=== PATIENT | male | born 1970 | race Caucasian/White ===

== ENCOUNTER 2020-01-23 17:36 | Inpatient (IN) | payer MEDICARE, MEDICAID ==
[~2020-01-23] VITALS: Ht 175.3 cm; Wt 222.3 kg
[2020-01-23 17:36] VITALS: BP 145/79
--- NOTE | 2020-01-23 17:36 | NUR ---
ED Nurse Note: Patient BARBIE RA #[id number] from [facility] d/t SOB x 45 min. Pt SPO2 83% on arrival. Pt placed on O2 8L by EMT. BS was 190mg/dL. Pt AO4 NAD. trach noted. dressed into gown; attached to monitor. breathing shallow; tachypneic.
--- NOTE | 2020-01-23 17:43 | Emergency Room Report ---
History of Present Illness General Chief Complaint: Dyspnea/Respdistress Source: Patient, EMS Present Illness HPI 49-year-old male history of chronic respiratory failure history of COPD presents with shortness of breath x1 day no known aggravating relieving factors severity is severe, constant patient was initially to be transported to [facility] however he was de-satting down to 80%, patient was brought in by EMS supplemental oxygen was provided with improvement in saturation patient presents for evaluation Allergies: Coded Allergies: FISH DERIVED (Verified Allergy, Unknown, 01/23/20) PENICILLINS (Verified Allergy, Unknown, 01/23/20) SULFAMETHOXAZOLE (Verified Allergy, Unknown, 01/23/20) TRIMETHOPRIM (Verified Allergy, Unknown, 01/23/20) Patient History Limited by: medical condition - Trach Past Medical History: see triage record Reviewed Nursing Documentation: PMH: Agreed; PSxH: Agreed Review of Systems All Other Systems: limited - Trach Physical Exam Vital Signs Date Time Temp Pulse Resp B/P (MAP) Pulse Ox O2 Delivery O2 Flow Rate FiO2 01/23/20 17:27 98.1 111 24 145/79 (101) 95 Room Air Sp02 EP Interpretation: reviewed, abnormal - Reduced O2 General Appearance: alert, mild distress Head: normocephalic, atraumatic Eyes: bilateral eye PERRL, bilateral eye EOMI ENT: uvula midline, moist mucus membranes Neck: supple, thyroid normal, supple/symm/no masses, tracheotomy Respiratory: decreased breath sounds, accessory muscle use Cardiovascular #1: normal peripheral pulses, no edema, no gallop, no murmur, tachycardia Gastrointestinal: non tender, soft, no guarding, no rebound Musculoskeletal: normal inspection Neurologic: alert, oriented x3 Psychiatric: anxious Skin: no rash, warm/dry Procedures Critical Care Time Critical Care Time Given the critical condition in which the patient arrived, the patient was immediately assessed by myself and the nurse, and cardiac monitoring initiated due to the potential for rapid decompensation of the patient's clinical condition. During the course of the patient's stay, I spent a considerable amount of time at the bedside performing serial re-evaluations of the patient's hemodynamic and clinical status because of the recognized potential threat to life or limb in this condition. I then had a chance to review not only all of the available current laboratory and radiographic studies obtained today, but I also reviewed old records available to me at the time. Additionally, any ancillary information available including pet stylist records were reviewed. Sequential vital signs were obtained. Critical Care time of 36 minutes was performed exclusive of billable procedures. Medical Decision Making Diagnostic Impression: Primary Impression: Respiratory distress Additional Impressions: Hypoxia Hypercapnic respiratory failure, chronic ER Course 49-year-old male presents with hypoxia, respiratory distress. Differential diagnosis includes pneumonia, hypercapnic respiratory failure, hypoxia, COPD exacerbation Steroids started We will start breathing treatments plan for admission to stepdown unit due to increasing oxygen requirements Reevaluation 7:58 PM patient improved with breathing treatments CO2 is improving We will admit patient to stepdown unit Dr. Herrera accepted patient Could not perform CTA due to lack of manpower patient is too heavy to transport to CT ABG improved with breathing treatments most likely an exacerbation of his COPD will cancel CTA PE most likely COPD exacerbation Laboratory Tests Test 01/23/20 17:30 01/23/20 17:38 01/23/20 19:07 White Blood Count 12.2 K/UL (4.8-10.8) H Red Blood Count 4.16 M/UL (4.70-6.10) L Hemoglobin 11.8 G/DL (14.2-18.0) L Hematocrit 38.3 % (42.0-52.0) L Mean Corpuscular Volume 92 FL (80-99) Mean Corpuscular Hemoglobin 28.3 PG (27.0-31.0) Mean Corpuscular Hemoglobin Concent 30.7 G/DL (32.0-36.0) L Red Cell Distribution Width 16.1 % (11.6-14.8) H Platelet Count 134 K/UL (150-450) L Mean Platelet Volume 9.2 FL (6.5-10.1) Neutrophils (%) (Auto) 72.1 % (45.0-75.0) Lymphocytes (%) (Auto) 20.1 % (20.0-45.0) Monocytes (%) (Auto) 6.5 % (1.0-10.0) Eosinophils (%) (Auto) 0.4 % (0.0-3.0) Basophils (%) (Auto) 0.9 % (0.0-2.0) Sodium Level 153 MMOL/L (136-145) H Potassium Level 3.5 MMOL/L (3.5-5.1) Chloride Level 109 MMOL/L (98-107) H Carbon Dioxide Level 38 MMOL/L (21-32) H Anion Gap 6 mmol/L (5-15) Blood Urea Nitrogen 23 mg/dL (7-18) H Creatinine 0.9 MG/DL (0.55-1.30) Estimate Glomerular Filtration Rate > 60 mL/min (>60) Glucose Level 94 MG/DL (74-106) Lactic Acid Level 0.60 mmol/L (0.4-2.0) Calcium Level 8.7 MG/DL (8.5-10.1) Total Bilirubin 0.4 MG/DL (0.2-1.0) Aspartate Amino Transferase (AST) 216 U/L (15-37) H Alanine Aminotransferase (ALT) 110 U/L (12-78) H Alkaline Phosphatase 57 U/L (46-116) Troponin I 0.119 ng/mL (0.000-0.056) Pro-B-Type Natriuretic Peptide 730 pg/mL (0-125) H Total Protein 7.8 G/DL (6.4-8.2) Albumin 3.5 G/DL (3.4-5.0) Globulin 4.3 g/dL Albumin/Globulin Ratio 0.8 (1.0-2.7) L Lipase 63 U/L (73-393) L Arterial Blood pH 7.279 (7.350-7.450) 7.272 (7.350-7.450) Arterial Blood Partial Pressure CO2 83.5 mmHg (35.0-45.0) *H 63.9 mmHg (35.0-45.0) *H Arterial Blood Partial Pressure O2 89.6 mmHg (75.0-100.0) 66.7 mmHg (75.0-100.0) L Arterial Blood HCO3 38.3 mmol/L (22.0-26.0) H 28.8 mmol/L (22.0-26.0) H Arterial Blood Oxygen Saturation 95.5 % (95-100) 90.9 % (95-100) L Arterial Blood Base Excess 8.6 (-2-2) H 0.8 (-2-2) Alex Test Positive Positive EKG Diagnostic Results EKG Time: 17:50 EP Interpretation: NSR, rate 98, QTc 482, no acute ST elevations, normal axis Rhythm Strip Diag. Results Rhythm Strip Time: 17:42 EP Interpretation: yes Rate: 109 Rhythm: other - Sinus tachycardia Chest X-Ray Diagnostic Results Chest X-Ray Diagnostic Results : Chest X-Ray Ordered: Yes # of Views/Limited/Complete: 1 View Indication: Shortness of Breath EP Interpretation: Yes Interpretation: no consolidation, no effusion, no pneumothorax, no acute cardiopulmonary disease Impression: No acute disease Electronically Signed by: Ebenezer Baocn MD Last Vital Signs Date Time Temp Pulse Resp B/P (MAP) Pulse Ox O2 Delivery O2 Flow Rate FiO2 01/23/20 17:27 98.1 111 24 145/79 (101) 95 Room Air Disposition: ADMITTED INPATIENT Condition: Serious Ebenezer Bacon MD Jan 23, 2020 17:43
[2020-01-23] MEDS ORDERED: Ipratropium 0.02% Inh Soln 2.5ml UD HHN ONE (17:45)
[2020-01-23] MEDS ORDERED: Solu-MEDROL 125mg Inj IVP ONE (17:45)
[2020-01-23] MEDS ORDERED: Albuterol ud Inhalation HHN ONE (17:45)
[2020-01-23] MEDS ORDERED: Omnipaque 350 100ml vial INJ PRN (17:45)
--- NOTE | 2020-01-23 17:45 | NUR ---
ED Nurse Note: iv access established. blood, initial lactic, blood culture collected; sent down to lab.
[2020-01-23 18:26] LABS: BASOPHILS % (AUTO) 0.9 % (0.0-2.0); EOSINOPHILS % (AUTO) 0.4 % (0.0-3.0); HEMATOCRIT 38.3 % (42.0-52.0); HEMOGLOBIN 11.8 G/DL (14.2-18.0); LYMPHOCYTES % (AUTO) 20.1 % (20.0-45.0); MEAN CORPUSCULAR VOLUME 92 FL (80-99); MONOCYTES % (AUTO) 6.5 % (1.0-10.0); NEUTROPHILS % (AUTO) 72.1 % (45.0-75.0); PLATELET COUNT 134 K/UL (150-450); RED BLOOD COUNT 4.16 M/UL (4.70-6.10); RED CELL DISTRIBUTION WIDTH 16.1 % (11.6-14.8); WHITE BLOOD COUNT 12.2 K/UL (4.8-10.8)
--- NOTE | 2020-01-23 18:28 | Diagnostic Imaging Report ---
Exam: Chest 1 view History: Shortness of breath Comparison: None Findings: Tracheostomy tube is in mid trachea in satisfactory position. Cardiomegaly and vascular congestion or seen. Costophrenic angles are clear. Bones are intact. Impression: 1. Cardiomegaly and vascular congestion without overt pulmonary edema
[2020-01-23 18:30] LABS: ANION GAP 6 mmol/L (5-15); BLOOD UREA NITROGEN 23 mg/dL (7-18); CALCIUM 8.7 MG/DL (8.5-10.1); CARBON DIOXIDE 38 MMOL/L (21-32); CHLORIDE 109 MMOL/L (98-107); CREATININE 0.9 MG/DL (0.55-1.30); POTASSIUM 3.5 MMOL/L (3.5-5.1); SODIUM 153 MMOL/L (136-145)
[2020-01-23 18:43] LABS: ALANINE AMINOTRANSFERASE 110 U/L (12-78); ALBUMIN 3.5 G/DL (3.4-5.0); ALBUMIN/GLOBULIN RATIO 0.8 (1.0-2.7); ALKALINE PHOSPHATASE 57 U/L (46-116); ASPARTATE AMINO TRANSFERASE 216 U/L (15-37); BILIRUBIN,TOTAL 0.4 MG/DL (0.2-1.0)
--- NOTE | 2020-01-23 19:00 | NUR ---
HAND-OFF: Report given to valery shell. patient in stable condition. endorsed pending admission and integumentary assessment.
--- NOTE | 2020-01-23 19:10 | NUR ---
ED Nurse Note: Reassessed patient, patient in stable condition resting in bed. Addendum: 01/23/20 at 2013 by HERNÁN ED Nurse Note: Reassessed patient, patient in stable condition resting in bed. RT at bedside.
[2020-01-23] MEDS ORDERED: Enoxaparin 100mg Inj SUBQ ONE (19:15)
--- NOTE | 2020-01-23 19:40 | NUR ---
ED Nurse Note: Informed ERMD of 134 platelet count. Per ERMD, Patient ok to give Lovenox. Per ERMD, ok to not administer aspirin, medication returned to pyxis.
--- NOTE | 2020-01-23 19:49 | NUR ---
ED Nurse Note: RT contacted for suction.
--- NOTE | 2020-01-23 19:54 | NUR ---
ED Nurse Note: RT at bedside.
[2020-01-23 19:57] VITALS: BP 138/55
--- NOTE | 2020-01-23 20:31 | NUR ---
ED Nurse Note: Per ERMD, cancel CT. Unable to turn patient in ER andresrarturo d/t weight.
--- NOTE | 2020-01-23 20:32 | NUR ---
ED Nurse Note: MRSA and VRE swabs sent to lab.
[2020-01-23] MEDS ORDERED: LITHIUM CARBON300 MG ORAL (20:53)
[2020-01-23] MEDS ORDERED: ALBUTEROL2.5 MG/3 M INH (20:53)
[2020-01-23] MEDS ORDERED: KLONOPIN1 MG ORAL (20:53)
[2020-01-23] MEDS ORDERED: GABAPENTIN300 MG ORAL (20:53)
[2020-01-23] MEDS ORDERED: ATORVASTATIN CA20 MG ORAL (20:53)
[2020-01-23] MEDS ORDERED: ADDERAL20 MG ORAL (20:53)
[2020-01-23] MEDS ORDERED: COLACE100 MG ORAL (20:53)
[2020-01-23] MEDS ORDERED: LEVETIRACETAM500 MG ORAL (20:53)
[2020-01-23] MEDS ORDERED: TRAZODONE HCL50 MG ORAL (20:53)
--- NOTE | 2020-01-23 21:10 | NUR ---
ED Nurse Note: Report given to EMETERIO Shields in SDU.
--- NOTE | 2020-01-23 21:37 | NUR ---
TRANSFER TO FLOOR: Patient transferred to SDU as ordered, per ERMD. Report given to EMETERIO Shields. Patient transported via gurney on ACLS protocol and cardiac care unit nurse accompanied by 1 RN, technical support manager, and RT in stable condition.
[2020-01-23 21:45] VITALS: BP 123/70
--- NOTE | 2020-01-23 21:45 | NUR ---
NURSE NOTES: Received patient from EMETERIO Stone. Patient is aaox3, vss, with no acute distress. Patient tries to speak, but unable with trach. Patient was admitted from ED c/o sob for unspecified days. Patient is uncooperative and agitated. Patient refuses to reposition or roll to one side to properly assess skin. Patient is on monitor and storage bin tender and 15L humidified. IV site is on his right AC 18g. Bed at its lowest position, call light in reach and x3 bed rails are up. Will continue to monitor.
--- NOTE | 2020-01-23 21:50 | NUR ---
NURSE NOTES: Late entry Patient had rashes in his skin folds and is diaphoretic. MD at bedside.
[2020-01-23] MEDS ORDERED: Ipratropium 0.02% Inh Soln 2.5ml UD HHN PRN (22:45)
[2020-01-23] MEDS ORDERED: Albuterol ud Inhalation HHN PRN (22:45)
[2020-01-23] MEDS ORDERED: HYDROcodone/Acetamin 10/325 tab ORAL PRN (23:00)
[2020-01-24] VITALS (11 sets, daily range): BP systolic 96–136; BP diastolic 57–82
--- NOTE | 2020-01-24 06:23 | NUR ---
NURSE NOTES: Dr Herrera contacted Dr Lombardo and stated not to call him.
--- NOTE | 2020-01-24 07:10 | NUR ---
NURSE NOTES: Received report from EMETERIO Shields. The patient is resting on the bed without acute distress or shortness of breath. The patient's bed in the lowest position, call light in reach, and fall, aspiration, and seizure precaution reinforced. IV site intact and patent. The patient has trach collar and 12L oxygen therapy per order. MICHELLE Gr at the bedside assessed the patient. MICHELLE Gr ordered ST eval for PMV and ABG. Will continue plan of care.
--- NOTE | 2020-01-24 07:20 | NUR ---
HAND-OFF: Report given to EMETERIO Reyes.
--- NOTE | 2020-01-24 08:30 | NUR ---
NURSE NOTES: Notified Dr. Lombardo and MICHELLE Gr for critical ABG. MICHELLE Gr and Dr. Lombardo ordered the patient to be on ventilator AC 16, TV 600mL, and FiO2 30%. Informed RT for new order. The patient is stable without acute distress or shortness of breath. Will continue plan of care.
--- NOTE | 2020-01-24 08:30 | NUR ---
RESPIRATORY NOTE: ABG drawn. Results posted. EMETERIO callahan.
[2020-01-24] MEDS ORDERED: Aspirin Baby 81mg ORAL SCH (09:00)
[2020-01-24] MEDS ORDERED: Enalapril 5mg tab ORAL SCH (09:00)
[2020-01-24] MEDS ORDERED: Tubing IV Secondary IV ONE (09:19)
--- NOTE | 2020-01-24 11:00 | NUR ---
NURSE NOTES: Dr. Herrera ordered Keppra 750mg IVPB Q12hr for seizure as the patient has been on medication at [facility]. Will carry out the order as soon as possible. The patient is on ventilator for breathing support. The patient is stable without acute distress or shortness of breath. Will continue plan of care.
[2020-01-24] MEDS ORDERED: levETIRAcetam 750 MG in D5W 95 ML IV SCH (12:00)
[2020-01-24] MEDS ORDERED: Solu-MEDROL 125mg Inj IVP SCH (12:00)
--- NOTE | 2020-01-24 13:20 | NUR ---
NURSE NOTES: The patient had episode of multiple times of vomiting while the patient is on ventilator. Notified Dr. Herrera immediately. Administered Zofran as ordered as PRN. Awaiting for CXR result to come out for possible aspiration. RT at the bedside adjusted trach. The patient became calm without vomiting after administration of medication. Will continue plan of care.
--- NOTE | 2020-01-24 15:46 | Diagnostic Imaging Report ---
Indication: Dyspnea Comparison: 01/23/2020 A single view chest radiograph was obtained. Findings: Pulmonary vascular congestion is again demonstrated. Tracheostomy noted. Heart is enlarged but stable. IMPRESSION: No significant change from the prior examination. Pulmonary edema suspected
[2020-01-24] MEDS ORDERED: Pantoprazole Inj IVP SCH (16:00)
--- NOTE | 2020-01-24 16:00 | NUR ---
NURSE NOTES: Notified Dr. Herrera regarding multiple episodes of coffee ground emesis. Dr. Herrera ordered Protonix, NPO, and hold anticoagulant. The patient will be closely monitored.
--- NOTE | 2020-01-24 16:20 | NUR ---
NURSE NOTES: Dr. Herrera also ordered NS 100mL/hr, stat CBC, Ativan, GI consult with Dr. Singleton. Paged Dr. Singleton regarding the patient's condition but no new order yet. Will closely monitor the patient.
[2020-01-24] MEDS ORDERED: LORazepam Inj 2mg/ml 1ml IV PRN ×2 (16:30→17:30)
--- NOTE | 2020-01-24 16:30 | NUR ---
NURSE NOTES: Per MICHELLE Tee for Dr. Singleton, Dr. Carballo is covering the patient. Notified Dr. Carballo regarding the patient's sudden change of condition. No response yet. Will continue plan of care.
--- NOTE | 2020-01-24 16:45 | NUR ---
NURSE NOTES: Dr. Herrera ordered the patient to be transferred to ICU due to continuous coffee ground emesis. Notified the charge nurse and supervisor dairy sanitation. The patient will go to [facility] with two RNs and RTs. Will endorse plan of care.
--- NOTE | 2020-01-24 17:00 | NUR ---
NURSE NOTES: The patient had episode of vomiting water @1100 when ROUTE INSPECTOR and the primary nurse tried to change the ander after having bowel movement. Then,the patient got stablized. The patient had another emesis @ 1320 and color of emesis changed into coffee ground. Notified to Dr. Herrera immediately and adminstered Zofran as ordered. The charge nurse was notified and assisted the primary nurse. Called RT to adjust the setting and stat CXR done for risk of aspiration per order. The patient got stablized after administration of Zofran. At 1600, the patient has large amount of coffee ground emesis x3 and notified Dr. Herrera immediatly. Dr. Herrera ordered hold anticoagulant, Protonix, GI consult with Dr. Singleton, strict NPO, stat CBC, and NS 100mL/hr per NPO status. Paged MICHELLE Tee, Dr. Singleton, and Dr. Carballo for further order but no response back. At 1640, the patient had another episodes of coffee ground emesis and notified to immediately. Dr. Herrera ordered the patient to be transferred to ICU for further care. The patient got safely transferred to [facility] with two RNs and RTs and hand-off report given to EMETERIO Jones and EmilyRN for further care.
[2020-01-24 17:13] LABS: BASOPHILS % (AUTO) 0.3 % (0.0-2.0); HEMOGLOBIN 11.9 G/DL (14.2-18.0); LYMPHOCYTES % (AUTO) 6.6 % (20.0-45.0); MEAN CORPUSCULAR VOLUME 91 FL (80-99); MONOCYTES % (AUTO) 2.2 % (1.0-10.0); NEUTROPHILS % (AUTO) 90.6 % (45.0-75.0); PLATELET COUNT 162 K/UL (150-450); RED BLOOD COUNT 4.18 M/UL (4.70-6.10); RED CELL DISTRIBUTION WIDTH 16.3 % (11.6-14.8)
--- NOTE | 2020-01-24 17:15 | NUR ---
NURSE NOTES: The patient got safely transferred to [facility] with two RNs and two RTs. Comprehensive repot given to Karen RN and Emily RN @ ICU. The patient is on ventilator for breathing support and will kept as NPO as Dr. Herrera ordered until clarification made with Dr. Carballo. The patient's belongings checked with the patient and two nurses and signed by two nurses. Endorsed plan of care.
[2020-01-24] MEDS ORDERED: HYDROcodone/Acetamin 10/325 tab ORAL PRN (17:30)
[2020-01-24] MEDS ORDERED: Albuterol ud Inhalation HHN PRN (17:30)
--- NOTE | 2020-01-24 17:30 | NUR ---
NURSE NOTES: Received report from EMETERIO Reyes. Patient blood pressure 108/52, HR 79 in normal sinus rhythm, SpO2 96%, and RR 25. Patient transferred due to 10 times coffee ground emesis. Received report that patient vomited once this morning and then 8-9 more times when he was turned to be cleaned up in the afternoon. Dr Herrera ordered for the patient to be transferred to ICU and made strict NPO. Patient vomited once again when transferred to ICU. Emesis brown, thin with some brown clots noted. Patient reports abdominal pain and nausea at this time. Will follow up with pain medication as ordered. Patient on trach to ventilator with setting of AC 16, TV 600, FiO2 45%, and PEEP 0. Patient reported to be incontinent of urine and stool. Patient soiled at this time. Patient has right wrist 20 gauge peripheral IV that is patent, asymptomatic, and saline locked at this time. Patient has new order for 0.9% normal saline at 100mL/hr. Will follow up and start medication administration. Patient has dry, flacking, calloused feet with no evidence of DTI at this time. Patient has bilateral elbow open wound that patient reports are abscesses. Patient also has left upper arm open wound that patient reports is an abscess. Moisture barrier cream and optifoam applied. Patient has sacral dark red/maroon wound with small satellite spots around the middle red area. Moisture barrier cream and optifoam applied. Patient needs a larger bed. Attempted to order from central supply but they are closed at this time. Will endorse to next shift to order when cetral supply arrives in the morning. Patient cleaned, repositioned, and oral care performed. All linens changed. Patient bed in low position with bed alarm on and call light in reach at this time. Will continue to monitor. Addendum: 01/24/20 at 1943 by Karen Doss RN Bright red, raw, irritated skin noted under trach. NO open wound noted.
[2020-01-24] MEDS ORDERED: Albuterol/Ipratropium 3ml neb HHN PRN ×2 (17:45)
[2020-01-24] MEDS ORDERED: Omnipaque 350 100ml vial INJ PRN (17:45)
[2020-01-24] MEDS ORDERED: Guaifenesin/DM 10ml syrup ORAL PRN (17:45)
--- NOTE | 2020-01-24 17:57 | Consultation ---
History of Present Illness General Date patient seen: Jan 24, 2020 Time patient seen: 15:00 Chief Complaint: Dyspnea/Respdistress Referring physician: Dr Herrera Reason for Consultation: resp failure Present Illness HPI 49 years old male with past medical history of chronic respiratory failure, COPD , tracheostomy status, presented with shortness of breath. Upon evaluation patient was tachycardic and tachypneic. Laboratory work-up revealed leukocytosis with WBC 12.2 and anemia with, hemoglobin 11.8 hematocrit 28.3. Platelet count 134. Sodium 153, potassium 3.5. Chloride 109. BUN 23, creatinine 0.9. Lactic acid 0.6. Glucose 94. AST 216 ALT 110. Troponin 0.119 Troponin elevated 0.119 , pro vBNP 730, EKG revealed sinus tachycardia, no acute ischemic changes. Albumin 3.5. Chest x-ray demonstrated cardiomegaly and vascular congestion without overt pulmonary edema. ABG showed evidence of acute respiratory acidosis with pH 7.27, PCO2 83, PO2 89 and O2 sat 95% on 45% FiO2. In emergency department patient was connected to ventilator , started on steroids and nebulizing treatment with bronchodilator. ABG after bronchodilator treatment showed improvement with PCO2 down to 64. In ED received ASA and Lovenox x 1. Patient also received 1 L of fluid in emergency department. Tachycardia resolved Patient subsequently admitted to stepdown unit for further management. Pulmonology consult was requested to assist in respiratory care and ventilator management. Allergies: Coded Allergies: FISH DERIVED (Verified Allergy, Unknown, 01/23/20) PENICILLINS (Verified Allergy, Unknown, 01/23/20) SULFAMETHOXAZOLE (Verified Allergy, Unknown, 01/23/20) TRIMETHOPRIM (Verified Allergy, Unknown, 01/23/20) Medication History Scheduled Atorvastatin Calcium* (Atorvastatin Calcium*), 10 MG ORAL BEDTIME, (Reported) Clonazepam* (Klonopin*), 1 MG ORAL DAILY, (Reported) Dextroamphetamine/Amphetamine (Adderall 20 mg Tablet), 20 MG ORAL TWICE A DAY, ( Reported) Docusate Sodium* (Colace*), 100 MG ORAL DAILY, (Reported) Gabapentin* (Gabapentin*), 300 MG ORAL BID, (Reported) Levetiracetam* (Levetiracetam*), 750 MG ORAL TWICE A DAY, (Reported) [place] Carbonate* ([place]*), 600 MG ORAL BID, (Reported) Trazodone Hcl* (Desyrel*), 50 MG ORAL BEDTIME, (Reported) Scheduled PRN Albuterol Sulfate* (Albuterol Sulfate Hhn*), 3 ML INH Q3HR PRN for Shortness of Breath, (Reported) Patient History Limited by: medical condition History Provided By: Medical Record Healthcare decision maker Resuscitation status Full Code Advanced Directive on File Review of Systems ROS Narrative Unable to obtain due to patient's medical condition Physical Exam General Appearance: other - morbidly obese male on Vent AC 600-16-30% Lines, tubes and drains: peripheral HEENT: normocephalic, atraumatic, anicteric, status post trach Respiratory/Chest: chest wall non-tender, expiratory wheezing - few exp wheezes and overall decreased BS Cardiovascular/Chest: normal rate Abdomen: normal bowel sounds, soft - obese Skin Exam: warm/dry Neurologic: abnormal gait, responsive Musculoskeletal: normal muscle bulk Last 24 Hour Vital Signs Date Time Temp Pulse Resp B/P (MAP) Pulse Ox O2 Delivery O2 Flow Rate FiO2 01/24/20 14:41 86 21 30 01/24/20 13:16 100 26 30 01/24/20 12:00 105 01/24/20 12:00 98.8 82 20 124/78 (93) 99 01/24/20 12:00 Mechanical Ventilator 01/24/20 10:35 90 18 30 01/24/20 10:28 70 01/24/20 08:56 121/64 01/24/20 08:00 Trach Collar 12.0 01/24/20 08:00 12.0 01/24/20 08:00 98.8 102 20 121/64 (83) 98 01/24/20 08:00 82 01/24/20 07:30 98 T-Piece 12.0 45 01/24/20 07:30 90 27 98 T-Piece 12.0 45 01/24/20 04:00 Trach Collar 12.0 01/24/20 04:00 97.6 100 27 96/57 (70) 92 01/24/20 04:00 82 01/24/20 04:00 12.0 01/24/20 01:00 96 T-Piece 12.0 45 01/24/20 00:00 98.6 110 25 119/73 (88) 92 01/24/20 00:00 111 01/24/20 00:00 12.0 01/24/20 00:00 Trach Collar 12.0 01/23/20 21:45 98.1 96 24 123/70 (87) 92 01/23/20 21:45 Trach Collar 12.0 01/23/20 21:30 98.3 78 24 145/95 89 Trach Collar 12.0 01/23/20 19:57 99 28 138/55 91 Trach Collar 5.0 40 01/23/20 19:00 89 24 92 T-Piece 12.0 45 01/23/20 19:00 92 T-Piece 12.0 45 01/23/20 18:21 110 21 Trach Collar 5.0 40 01/23/20 18:18 108 19 95 Trach Collar 5.0 40 110 21 90 Intake and Output 01/23/20 01/24/20 19:00 07:00 Intake Total 3400 ml Balance 3400 ml Intake Oral 1400 ml IV Total 2000 ml # Voids 1 # Bowel Movements 4 Laboratory Tests Test 01/23/20 19:07 01/24/20 03:16 01/24/20 08:30 01/24/20 16:52 Arterial Blood pH 7.272 (7.350-7.450) 7.299 (7.350-7.450) Arterial Blood Partial Pressure CO2 63.9 mmHg (35.0-45.0) *H 73.7 mmHg (35.0-45.0) *H Arterial Blood Partial Pressure O2 66.7 mmHg (75.0-100.0) L 120.9 mmHg (75.0-100.0) H Arterial Blood HCO3 28.8 mmol/L (22.0-26.0) H 35.4 mmol/L (22.0-26.0) H Arterial Blood Oxygen Saturation 90.9 % (95-100) L 98.0 % (95-100) Arterial Blood Base Excess 0.8 (-2-2) 6.7 (-2-2) H Alex Test Positive Positive Hemoglobin A1c 5.5 % (4.3-6.0) Pro-B-Type Natriuretic Peptide 449 pg/mL (0-125) H White Blood Count 12.0 K/UL (4.8-10.8) H Red Blood Count 4.18 M/UL (4.70-6.10) L Hemoglobin 11.9 G/DL (14.2-18.0) L Hematocrit 38.0 % (42.0-52.0) L Mean Corpuscular Volume 91 FL (80-99) Mean Corpuscular Hemoglobin 28.5 PG (27.0-31.0) Mean Corpuscular Hemoglobin Concent 31.3 G/DL (32.0-36.0) L Red Cell Distribution Width 16.3 % (11.6-14.8) H Platelet Count 162 K/UL (150-450) Mean Platelet Volume 9.9 FL (6.5-10.1) Neutrophils (%) (Auto) 90.6 % (45.0-75.0) H Lymphocytes (%) (Auto) 6.6 % (20.0-45.0) L Monocytes (%) (Auto) 2.2 % (1.0-10.0) Eosinophils (%) (Auto) 0.0 % (0.0-3.0) Basophils (%) (Auto) 0.3 % (0.0-2.0) Microbiology Date/Time Source Procedure Growth Status 01/23/20 18:00 Rectum Received Height (Feet): 5 Height (Inches): 9.00 Weight (Pounds): 500 Medications Current Medications Medications (Trade) Dose Ordered Sig/Phuong Route PRN Reason Start Time Stop Time Status Last Admin Dose Admin Acetaminophen/ Hydrocodone Bitart ([place] 10/325) 1 tab Q8H PRN ORAL For Pain 01/24/20 17:30 01/31/20 17:29 Albuterol/ Ipratropium (Albuterol/ Ipratropium) 3 ml Q4H PRN HHN Shortness of Breath 01/24/20 17:45 01/29/20 17:29 Aspirin (ASA) 81 mg DAILY ORAL 01/25/20 09:00 02/23/20 08:59 Atorvastatin Calcium (Lipitor) 10 mg BEDTIME ORAL 01/24/20 21:00 02/23/20 20:59 Enalapril Maleate (Vasotec) 5 mg EVERY 12 HOURS ORAL 01/24/20 21:00 02/23/20 08:59 Iohexol (Omnipaque 350 100ml) 100 ml NOW PRN INJ Radiology Procedure 01/24/20 17:45 01/25/20 17:38 Levetiracetam 750 mg/Dextrose 102.5 ml @ 440 mls/hr Q12H IV 01/25/20 00:00 02/23/20 11:59 Levofloxacin 150 ml @ 100 mls/hr QHS IVPB 01/24/20 21:00 01/30/20 22:59 Lorazepam (Ativan 2mg/ml 1ml) 1 mg Q4H PRN IV For Anxiety 01/24/20 17:30 01/31/20 17:29 Methylprednisolone Sodium Succinate (Solu-MEDROL) 60 mg EVERY 6 HOURS IVP 01/24/20 18:00 02/23/20 11:59 Ondansetron HCl (Zofran) 4 mg Q6H PRN IVP Nausea & Vomiting 01/24/20 17:30 02/23/20 17:29 Pantoprazole (Protonix) 40 mg DAILY IVP 01/25/20 09:00 02/23/20 15:59 Sodium Chloride 1,000 ml @ 100 mls/hr Q10H IV 01/24/20 17:30 02/23/20 16:29 Trazodone HCl (Desyrel) 50 mg BEDTIME ORAL 01/24/20 21:00 02/23/20 20:59 Assessment/Plan Assessment/Plan: ASSESSMENT Acute hypercapnic respiratory failure on chronic respiratory failure with tracheostomy status Acute COPD exacerbation Elevated troponin Hypernatremia likely due to dehydration Anemia Transaminitis Obesity Likely KENAN Hypertension Seizure disorder PLAN OF CARE ICU connected to vent, ABG in am titrate settings as needed pulmonary toilet with bronchodilator troponin in am ECHO continue ASA cardio eval- per primary IV steroids and taper soon empiric abx sputum cx if able trial of theophylline antitussive prn DVT prophylaxis Venous Duplex BLE ST eval for PMV trials swallow eval in am aspiration precautions BP management continue current meds GI prophylaxis bowel regimen seizure precautions, continue Keppra monitor renal paramerts, lytes, correct lytes as needed trend LFT 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
[2020-01-24] MEDS: Theophylline ER 100mg ORAL SCH (18:00)
[2020-01-24] MEDS: Solu-MEDROL 125mg Inj IVP SCH ×2 (18:18→23:48)
--- NOTE | 2020-01-24 18:35 | NUR ---
NURSE NOTES: Left telephone message for Dr Herrera requesting IV pain medication for patient. Patient has an order for PO pain medication and patient is currently NPO. Awaiting call back.
[2020-01-24] MEDS ORDERED: Ipratropium 0.02% Inh Soln 2.5ml UD HHN PRN (18:45)
--- NOTE | 2020-01-24 19:00 | NUR ---
RESPIRATORY NOTE: Pt vomited coffee ground emesis earlier. Pt refused to change dennis, gauze, and trach tie. Explained the importance of changing to a clean dennis, gauze, trach tie, still refused. Pt has bright redness skin under the trach. RN Karen aware. Will try to convince pt again later.
[2020-01-24] MEDS ORDERED: HYDROmorphone 1mg/ml Carpuject IVP PRN (19:15)
--- NOTE | 2020-01-24 19:28 | NUR ---
HAND-OFF: Report given to EMETERIO Marquez. Patient vital signs stable. Patient refused trach cleaning from RT. Endorsed to order larger bed tomorrow. Received call back from Dr Herrera. Received telephone order for Dilaudid 1mg IVP as needed for pain Q6Hr. Order read back, verified, and placed. Endorsed to administer as needed.
--- NOTE | 2020-01-24 19:30 | NUR ---
NURSE NOTES: Received report from EMETERIO Jones. Pt is resting on the bed and awake and disoriented, forgetful and non-compliance. On night monitor with SR. Trach to Vent dependent and setting with AC: 16, T: 600, P: 0, FiO2 45% and Evelyn 95% noted. Pt still refused clean on the trach area. Noted redness on under the neck area. Still noted vomiting with brownish color. Dressing is clean and dry on wound area. Iv site intact and no sign of infiltration noted. On running with N/S @ 100cc/hr. Denied pain at this time. On NPO. Placed fall and seizure precaution. Will continue to care plan.
--- NOTE | 2020-01-24 20:00 | NUR ---
NURSE NOTES: Pt is resting on the bed and no sign of acute distress noted. Tolerated well with current Vent setting. Will continue to care plan.
[2020-01-24] MEDS: Enalapril 5mg tab ORAL SCH (21:00)
[2020-01-24] MEDS: Heparin 5000 units/ml inj SUBQ SCH (21:00)
[2020-01-24] MEDS ORDERED: TraZODone 50mg tab ORAL SCH ×2 (21:00)
--- NOTE | 2020-01-24 22:00 | NUR ---
NURSE NOTES: Pt is sleeping on the bed and tolerated well with current Vent setting. No sign of n/v at this time. Repositioned. Will continue to monitor any change of condition.
[2020-01-24] MEDS: levETIRAcetam 750 MG in D5W 95 ML IV SCH (23:48)
[2020-01-25] VITALS (17 sets, daily range): BP systolic 110–166; BP diastolic 55–93
--- NOTE | 2020-01-25 | NUR ---
NURSE NOTES: Pt is resting on the bed and awake and forgetful. Pt want to drink water and ice chip but Dr. Herrera want to strict NPO. Explained Pt regarding strict NPO. Provided oral care but Pt refused. Dr. Herrera visited and assessed Pt. Repositioned. Pt still refused cleaning. Placed fall and seizure precaution. Inserted new IV on Lt. hand and noted good blood return. Will continue to monitor any change of condition.
--- NOTE | 2020-01-25 02:00 | NUR ---
NURSE NOTES: Given tracheal suction. Refused oral care at this time. on NPO. denied pain at this time. Changed position. No c/o nausea/ vomiting at this time. Will continue to monitor any change of condition.
--- NOTE | 2020-01-25 02:21 | NUR ---
NURSE NOTES: Noted coffee ground color emesis x1. Given Zofran 4mg IV as ordered. Keep NPO. Will continue to monitor any change of condition.
--- NOTE | 2020-01-25 03:45 | Progress Note ---
DATE: 01/24/2020 SUBJECTIVE: The patient developed acute respiratory failure, nausea and vomiting of coffee-ground material. These episodes repeated several times. The patient was transferred to the intensive care unit. In the intensive care unit, he is awake, alert, afebrile, and demanding. PHYSICAL EXAMINATION: VITAL SIGNS: Blood pressure 123/63, his pulse is 77, respirations are 18, temperature 98.8. HEENT: Eyes were normal. ENT, mucous membranes were moist and intact. NECK: Supple with no JVD without lymph nodes. Tracheostomy site is clean. LUNGS: Clear without rhonchi, rales, or wheezing. HEART: Normal sounds with irregular beats with APC and VPC . ABDOMEN: Soft, nontender with normal bowel sounds. Abdomen is massively obese. EXTREMITIES: Warm without cyanosis or clubbing. There is 2+ edema. LABORATORY AND DIAGNOSTIC DATA: His hemoglobin is 11.9, hematocrit 38.0 with MCV of 91, WBC of 12.0 and platelets is 162. His BUN and creatinine are 23 and 0.9 respectively. His sodium is 153, potassium is 3.5, chloride 109, CO2 is 38. His calcium is 8.7. His SGOT is 216. His SGPT is 110. His troponin is 0.11. His proBNP at 449. Chest x-ray shows cardiomegaly without pulmonary infiltrate. IMPRESSION: The patient has a new episode of nausea and vomiting, and vomiting is coffee-ground material. In addition, the patient has elevated troponin and elevated proBNP. The patient himself is noncompliant, refused treatment and refused care. PLAN: The patient now is NPO. Normal saline at 100 mL per hour is administered, Zofran 4 mg IV push q.4 h. p.r.n. for nausea and vomiting, Protonix 40 mg IV push q.24 hours. service delivery consultant and pulmonary net developer consultant are called to assist in the management of this case. Repeat laboratory tests will be done in the a.m. The patient will be placed on carvedilol 3.125 mg. He is currently on enalapril. His pain management now is done with Dilaudid 1 mg IV push q.4 hours. He is also on methylprednisolone sodium succinate 60 mg IV push q.6 h. Efren Herrera M.D. DR: VALENTE JOB#: [id number] CC:
--- NOTE | 2020-01-25 04:00 | NUR ---
NURSE NOTES: Morning care was done. Cleaned Pt and applied lotion and cream. Provided oral care. Repositioned. Trach to Vent dpendent setting with Ac: 16, T: 600, FiO2 60% P:0 SaO2 99% noted. On NPO. No sign of nausea and vomiting. Placed fall and seizure precaution. Will continue to monitor any change of condition.
[2020-01-25] MEDS: Solu-MEDROL 125mg Inj IVP SCH (05:30)
[2020-01-25 05:39] LABS: HEMATOCRIT 35.1 % (42.0-52.0); HEMOGLOBIN 11.1 G/DL (14.2-18.0); MEAN CORPUSCULAR VOLUME 91 FL (80-99); PLATELET COUNT 202 K/UL (150-450); RED BLOOD COUNT 3.86 M/UL (4.70-6.10); RED CELL DISTRIBUTION WIDTH 13.9 % (11.6-14.8); WHITE BLOOD COUNT 10.4 K/UL (4.8-10.8)
[2020-01-25 05:57] LABS: ALANINE AMINOTRANSFERASE 70 U/L (12-78); ALBUMIN 2.8 G/DL (3.4-5.0); ALBUMIN/GLOBULIN RATIO 0.6 (1.0-2.7); ALKALINE PHOSPHATASE 46 U/L (46-116); ANION GAP 4 mmol/L (5-15); ASPARTATE AMINO TRANSFERASE 74 U/L (15-37); BILIRUBIN,TOTAL 0.3 MG/DL (0.2-1.0); BLOOD UREA NITROGEN 29 mg/dL (7-18); CARBON DIOXIDE 39 MMOL/L (21-32); CHLORIDE 107 MMOL/L (98-107); CREATININE 0.8 MG/DL (0.55-1.30); POTASSIUM 3.7 MMOL/L (3.5-5.1); SODIUM 150 MMOL/L (136-145)
--- NOTE | 2020-01-25 06:00 | NUR ---
NURSE NOTES: Pt is sleeping on the bed and no sign of acute distress noted. No sign of nausea/ vomiting at this time. Denied pain . On NPO. Collected sputum culture. Repositioned. Will continue to monitor any change of condition.
--- NOTE | 2020-01-25 07:30 | History and Physical Report ---
DATE OF ADMISSION: 01/23/2020 NOTE: POOR AUDIO This is the first admission to [facility] of this 49-year-old patient because of severe COPD and morbid obesity. HISTORY OF PRESENT ILLNESS: The patient is a resident of an extended care facility subacute unit. The patient has been in relatively stable condition for the last several months. He is known to have several chronic medical syndromes, but has been stable on his current medication. One day prior to the present admission, he fell from his wheelchair and he could not be raised to his bed. Paramedics were called and it took six people to bring the patient to his bed as the patient's weight is 491 pounds. No obvious serious injury was clinically, and the ambulance could not carry him at night, and the following day, the patient was transferred to [facility] ER where he was found to be hypoxic and tachypneic, and the patient was admitted. PAST MEDICAL HISTORY: In addition to morbid obesity, the patient is noted to have high blood pressure, narcotic analgesic dependency, chronic psychosis. The patient had intermittent atrial fibrillation in the past and has been on chronic anticoagulation. ALLERGIES: The patient is allergic to fish, penicillin, sulfamethoxazole, and trimethoprim. FAMILY HISTORY: Noncontributory. SOCIAL HISTORY: He is single. He was born in [place]. Has been on SSI for many years prior to disability and was never employed. HABITS: The patient did smoke one pack a day for more than 20 years. Denies drinking. Denies the use of illicit drugs. REVIEW OF SYSTEMS: CARDIOVASCULAR: The patient denied any chest pain. He does have shortness of breath, which attributed to his condition. He has no palpitation and no dizziness. PULMONARY: The patient has chronic cough, chronic wheezing, and chronic expectoration. GASTROINTESTINAL: His appetite is moderate. His weight is 491 pounds. dysphagia. No dyspepsia. His bowel movement narcotic analgesic. GENITOURINARY: The patient denies any dysuria, frequency, incontinence, or nocturia. JOINTS: The patient denied any pain, swelling, stiffness, cold extremities, photosensitivity, dry eyes, or alopecia. Does complain of some bilateral knee pain and low back pain. CENTRAL NERVOUS SYSTEM: His sleep is of poor quality and he usually requires benzodiazepines to initiate sleep. He has no numbness, tingling, seizure disorder, and has no headache. PHYSICAL EXAMINATION: VITAL SIGNS: Blood pressure is 145/95, his pulse is 78, respirations are 24, and temperature 98.3. HEENT: Eyes were normal. Pupils were round, equal, and reactive to light. Sclerae were white. Conjunctivae were pink. Extraocular movements were normal. Temporal arteries were palpable bilaterally. Visual field to confrontation is normal and neglect sign is negative. ENT, mucous membranes were not dehydrated. Auditory canals were clear and tympanic membranes could not be visualized. Nasal cavity was not congested. Nasal septum was intact. Soft palate was free of ulcerations. Pharynx was clear from exudate or tonsillar hypertrophy. Uvula edith to phonation. Tongue was moist, midline, and normally papillated. NECK: Supple. There was no goiter. No mass. No lymphadenopathy. There was no JVD. No bruits. Carotid upstroke was 2+. LUNGS: Clear with decreased breath sounds in both lung castrejon. HEART: PMI was fifth left intercostal space in midclavicular line. There was normal S1 and normal S2. There was no murmur. No arrhythmia. No S3. No S4. No pericardial rub. ABDOMEN: Soft and nontender without organomegaly. There were no masses palpable. Normal bowel sounds without bruits. There was no guarding. No rebound tenderness. No ascites. No hernia. No CVA tenderness. Liver span was smooth ad nontender. There was no CVA tenderness. EXTREMITIES: No cyanosis, no clubbing, and no edema. Extremities were warm. NEUROLOGIC: Reflexes in biceps, triceps, and brachioradialis were present. Patellar retinaculum was present. Plantars were in flexion. Cranial nerves II through XII were symmetric and equal. Cerebellar function, gait, [id number] were not performed by the patient. There was no tremor. No nystagmus. No extrapyramidal rigidity. Sensory exam to pinprick, cotton touch, and position are grossly normal. Motor strength was 5/5 against resistance in upper extremities and in lower extremities. LABORATORY AND DIAGNOSTIC DATA: His hemoglobin is 11.8, hematocrit 38.3 with MCV of 92, WBC of 12.2, and platelets are 134,000. His BUN and creatinine are 23 and 0.9 respectively. His sodium is 133, potassium 3.5, chloride 109, CO2 is 38, his calcium is 8.7. SGOT is 216 and SGPT was . Alkaline phosphatase was 57. Troponin was 0.119. Albumin was 3.5 and total protein was 7.8. Lipase was normal. Chest x-ray, cardiomegaly and vascular congestion without pulmonary edema. IMPRESSION: The patient has morbid obesity, COPD, and congestive heart failure with troponin leak. The patient will be started on ceftriaxone 1 g IV piggyback q.24 h., enalapril 5 mg b.i.d., and Bumex 1 mg IV push q.12 h. Pulmonary it architecture consultant and it architecture consultant were called to assist in the management of this case. Respiratory therapy with albuterol sulfate and ipratropium bromide inhalation therapy will be given. The patient therapy in the emergency room. Efren Herrera M.D. DR: LUCIO JOB#: [id number] CC:
--- NOTE | 2020-01-25 07:34 | NUR ---
HAND-OFF: Report given to EMETERIO Wilkins. Pt is sleeping on the bed and no sign of acute distress noted.
[2020-01-25] MEDS: Theophylline ER 100mg ORAL SCH ×2 (08:28→17:50)
[2020-01-25] MEDS: Enalapril 5mg tab ORAL SCH ×2 (08:28→21:00)
[2020-01-25] MEDS: Heparin 5000 units/ml inj SUBQ SCH ×2 (08:29→21:00)
--- NOTE | 2020-01-25 08:30 | NUR ---
NURSE NOTES: ultrasound of the abdomen completed and awaiting for results. patient remained tolerating procedure with no distress or episodes of nausea or vomiting. patient is aware and responsive, he remains able to make needs known using gestures. remains on mechanical ventilator with AC 16, TV: 600 and FIO2 of 60%. he is saturating at 98-99%.
[2020-01-25] MEDS ORDERED: Aspirin Baby 81mg ORAL SCH (09:00)
[2020-01-25] MEDS ORDERED: Pantoprazole Inj IVP SCH (09:00)
--- NOTE | 2020-01-25 10:05 | NUR ---
NURSE NOTES: Dr. Lombardo rounded at the bedside, reviewed laboratory and updated of patient remaining with no symptoms of nausea or vommiting. Dr. dawn consulted for coffee ground emesis.
--- NOTE | 2020-01-25 10:10 | Diagnostic Imaging Report ---
Indication: Abdominal pain Technique: Grayscale and duplex Doppler imaging of the abdomen performed. Comparison: None Findings: Study is limited due to large body habitus. The liver is echogenic and enlarged measuring 24 cm. Doppler interrogation of the main portal vein shows patency with hepatopedal, monophasic flow. There is no biliary ductal dilatation identified with the CBD measuring between 5 and 6 mm. Gallbladder is absent. Pancreas and aorta are not seen. Both kidneys appear unremarkable though visualization is poor. There is no obvious hydronephrosis. IMPRESSION: Hepatomegaly with fatty infiltration. Status post cholecystectomy. Limited study due to large body habitus
--- NOTE | 2020-01-25 10:19 | Pulmonolgy Critical Care Note ---
Critical Care - Asmt/Plan Problems: (1) Acute on chronic respiratory failure (2) COPD (chronic obstructive pulmonary disease) (3) Pulmonary edema (4) Morbid obesity (5) Hx of seizure disorder Respiratory: monitor respiratory rate, adjust FIO2, CXR Cardiac: continue to monitor HR/BP, other - check echo, trial of laxis Renal: increase IV fluid Infectious Disease: check cultures, continue antibiotics Gastrointestinal: continue feedings/current rate Endocrine: monitor blood sugar Hematologic: monitor H/H, transfuse if hgb<8.5 Neurologic: PRN Ativan, PRN Morphine, keep patient comfortable Affect: PRN ativan Prophylaxis: Protonix Disposition: keep in ICU Time Spent (Minutes): 40 Notes Reviewed: renal Discussed with: nurses, consultants, mental health case managermanager lighting - Objective Last 24 Hour Vital Signs Date Time Temp Pulse Resp B/P (MAP) Pulse Ox O2 Delivery O2 Flow Rate FiO2 01/25/20 09:27 86 22 60 01/25/20 08:28 134/74 01/25/20 08:00 83 01/25/20 08:00 60 01/25/20 08:00 78 20 134/74 (94) 97 01/25/20 07:01 83 21 97 Mechanical Ventilator 45 01/25/20 07:01 83 21 60 01/25/20 07:00 79 20 130/66 (87) 97 01/25/20 06:00 80 20 132/68 (89) 97 01/25/20 05:00 82 20 132/78 (96) 99 01/25/20 04:53 81 16 60 01/25/20 04:00 74 01/25/20 04:00 60 01/25/20 04:00 98.9 80 19 133/78 (96) 100 01/25/20 04:00 Mechanical Ventilator 01/25/20 03:16 78 16 60 01/25/20 03:00 72 18 119/65 (83) 96 01/25/20 02:00 78 18 116/65 (82) 96 01/25/20 01:27 84 19 70 01/25/20 01:00 71 18 110/55 (73) 95 01/25/20 00:00 45 01/25/20 00:00 Mechanical Ventilator 01/25/20 00:00 71 01/25/20 00:00 98.6 75 19 128/72 (90) 97 01/24/20 23:16 91 18 45 01/24/20 23:00 77 18 123/63 (83) 96 01/24/20 22:00 95 18 131/74 (93) 96 01/24/20 21:01 83 17 45 01/24/20 21:00 90 18 115/62 (79) 95 01/24/20 21:00 115/62 01/24/20 20:00 45 01/24/20 20:00 98.8 84 19 132/72 (92) 97 01/24/20 20:00 Mechanical Ventilator 01/24/20 20:00 79 01/24/20 19:32 90 27 98 Mechanical Ventilator 45 01/24/20 19:32 78 18 45 01/24/20 19:00 79 18 136/76 (96) 97 01/24/20 18:00 99.4 83 19 108/82 (91) 98 01/24/20 17:19 90 23 30 01/24/20 16:00 Mechanical Ventilator 01/24/20 16:00 87 01/24/20 16:00 99.6 94 20 120/73 (89) 95 01/24/20 14:41 86 21 30 01/24/20 13:16 100 26 30 01/24/20 12:00 105 01/24/20 12:00 98.8 82 20 124/78 (93) 99 01/24/20 12:00 Mechanical Ventilator 01/24/20 10:35 90 18 30 01/24/20 10:28 70 Status: awake Condition: critical HEENT: atraumatic Neck: trach Lungs: rhonchi Abdomen: soft, non-tender Extremities: no C/C/E Micro: Microbiology Date/Time Source Procedure Growth Status 01/23/20 17:45 Blood Blood Culture - Preliminary NO GROWTH AFTER 24 HOURS Resulted 01/23/20 17:30 Blood Blood Culture - Preliminary NO GROWTH AFTER 24 HOURS Resulted 01/23/20 18:00 Rectum Received Critical Care - Subjective ROS Limited/Unobtainable: Yes ICU Day: 2 Condition: critical, improving EKG Rhythm: Sinus Rhythm FI02: 60 Vent Support Breath Rate: 16 Vent Support Mode: AC Vent Tidal Volume: 600 Sputum Amount: Small PEEP: 0.0 PIP: 25 I&O: Intake and Output 01/24/20 01/25/20 19:00 07:00 Intake Total 68 ml 1410.5 ml Balance 68 ml 1410.5 ml IV Total 68 ml 1410.5 ml # Voids 2 2 # Bowel Movements 3 CXR: trach in place, pulmonary vascular congestion Labs: Laboratory Tests Test 01/24/20 16:52 01/25/20 05:24 01/25/20 08:35 White Blood Count 12.0 K/UL (4.8-10.8) H 10.4 K/UL (4.8-10.8) Red Blood Count 4.18 M/UL (4.70-6.10) L 3.86 M/UL (4.70-6.10) L Hemoglobin 11.9 G/DL (14.2-18.0) L 11.1 G/DL (14.2-18.0) L Hematocrit 38.0 % (42.0-52.0) L 35.1 % (42.0-52.0) L Mean Corpuscular Volume 91 FL (80-99) 91 FL (80-99) Mean Corpuscular Hemoglobin 28.5 PG (27.0-31.0) 28.7 PG (27.0-31.0) Mean Corpuscular Hemoglobin Concent 31.3 G/DL (32.0-36.0) L 31.6 G/DL (32.0-36.0) L Red Cell Distribution Width 16.3 % (11.6-14.8) H 13.9 % (11.6-14.8) Platelet Count 162 K/UL (150-450) 202 K/UL (150-450) Mean Platelet Volume 9.9 FL (6.5-10.1) 8.5 FL (6.5-10.1) Neutrophils (%) (Auto) 90.6 % (45.0-75.0) H % (45.0-75.0) Lymphocytes (%) (Auto) 6.6 % (20.0-45.0) L % (20.0-45.0) Monocytes (%) (Auto) 2.2 % (1.0-10.0) % (1.0-10.0) Eosinophils (%) (Auto) 0.0 % (0.0-3.0) % (0.0-3.0) Basophils (%) (Auto) 0.3 % (0.0-2.0) % (0.0-2.0) Differential Total Cells Counted 100 Neutrophils % (Manual) 87 % (45-75) H Lymphocytes % (Manual) 10 % (20-45) L Monocytes % (Manual) 3 % (1-10) Eosinophils % (Manual) 0 % (0-3) Basophils % (Manual) 0 % (0-2) Band Neutrophils 0 % (0-8) Platelet Estimate Adequate Platelet Morphology Normal Hypochromasia 1+ Sodium Level 150 MMOL/L (136-145) H Potassium Level 3.7 MMOL/L (3.5-5.1) Chloride Level 107 MMOL/L (98-107) Carbon Dioxide Level 39 MMOL/L (21-32) H Anion Gap 4 mmol/L (5-15) L Blood Urea Nitrogen 29 mg/dL (7-18) H Creatinine 0.8 MG/DL (0.55-1.30) Estimat Glomerular Filtration Rate > 60 mL/min (>60) Glucose Level 199 MG/DL (74-106) #H Calcium Level 9.0 MG/DL (8.5-10.1) Total Bilirubin 0.3 MG/DL (0.2-1.0) Aspartate Amino Transf (AST/SGOT) 74 U/L (15-37) H Alanine Aminotransferase (ALT/SGPT) 70 U/L (12-78) Alkaline Phosphatase 46 U/L (46-116) Troponin I 0.030 ng/mL (0.000-0.056) Total Protein 7.5 G/DL (6.4-8.2) Albumin 2.8 G/DL (3.4-5.0) L Globulin 4.7 g/dL Albumin/Globulin Ratio 0.6 (1.0-2.7) L Hepatitis A IgM Antibody Pending Hepatitis B Surface Antigen Pending Hepatitis B Core IgM Antibody Pending Hepatitis C Antibody Pending Arterial Blood pH 7.449 (7.350-7.450) Arterial Blood Partial Pressure CO2 54.7 mmHg (35.0-45.0) H Arterial Blood Partial Pressure O2 87.5 mmHg (75.0-100.0) Arterial Blood HCO3 37.1 mmol/L (22.0-26.0) H Arterial Blood Oxygen Saturation 96.6 % (95-100) Arterial Blood Base Excess 11.2 (-2-2) *H Alex Test Positive Michael Lombardo MD Jan 25, 2020 10:19
[2020-01-25] MEDS: levETIRAcetam 750 MG in D5W 95 ML IV SCH (12:08)
--- NOTE | 2020-01-25 12:15 | NUR ---
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 * Morbid obesity R/T life style factors? excessive energy intake? as evidenced by BMI >70. CURRENT DIET:NPO PO DIET RECOMMENDATIONS: WHEN SAFE FOR ORAL DIET -> Cardiac/ texture per ASSISTANT PASSENGER LOCOMOTIVE ENGINEER ENTERAL NUTRITION RECOMMENDATIONS: Glucerna 1.5 @ 45ml/hr x 24 hrs + Prosource 1pkt TID to provide 1080ml, 1620kcal, 89g prot + 33g prot, 820ml free water * If TF indicated, obtain GI access, initiate Glucerna 1.5 @ 25m/hr x 6 hrs * Advance 10ml q 4-6 hrs as tolerated to goal rate * Add Prosource 1ptk TID to better meet prot needs * HOB over 30 degrees/ water flush per MD ADDITIONAL RECOMMENDATIONS: * Obtain calibrated bedscale wt as able -> current wt exceeds max wt on bedscale * Monitor for oral diet vs TF needs * Monitor BGs: BG 199 this AM, no h/o DM, A1C wnl -Solumedrol dc'ed * Monitor lytes, replete as needed * Rec WC eval for wound photos @ sacrum and BL elbows
--- NOTE | 2020-01-25 12:19 | NUR ---
NURSE NOTES: Dr. Singleton assessed patient at the bedside, spoke with patient regarding vomiting episodes that occurred in SDU, since the beginning of the shift there has been no vomiting episodes. ordered to have patient started on clear diet.
--- NOTE | 2020-01-25 12:32 | Diagnostic Imaging Report ---
Indication: Dyspnea Comparison: 01/24/2020 A single view chest radiograph was obtained. Findings: Pulmonary vascular congestion demonstrated with prominent vascularity and faint interstitial densities. The heart is enlarged. Tracheostomy noted. IMPRESSION: Pulmonary vascular congestion again noted. No significant change
--- NOTE | 2020-01-25 13:10 | Infectious Diseases Prog Note ---
Subjective Allergies: Coded Allergies: FISH DERIVED (Verified Allergy, Unknown, 01/23/20) PENICILLINS (Verified Allergy, Unknown, 01/23/20) SULFAMETHOXAZOLE (Verified Allergy, Unknown, 01/23/20) TRIMETHOPRIM (Verified Allergy, Unknown, 01/23/20) Subjective # [id number] Objective Vital Signs Last 24 Hour Vital Signs Date Time Temp Pulse Resp B/P (MAP) Pulse Ox O2 Delivery O2 Flow Rate FiO2 01/25/20 12:00 99.7 82 21 131/57 (81) 99 01/25/20 11:00 87 18 166/84 (111) 100 01/25/20 10:48 88 22 60 01/25/20 10:00 83 13 165/91 (115) 100 01/25/20 09:27 86 22 60 01/25/20 09:00 84 14 157/93 (114) 100 01/25/20 08:28 134/74 01/25/20 08:00 83 01/25/20 08:00 60 01/25/20 08:00 99.9 78 20 134/74 (94) 97 01/25/20 08:00 Mechanical Ventilator 01/25/20 07:01 83 21 97 Mechanical Ventilator 45 01/25/20 07:01 83 21 60 01/25/20 07:00 79 20 130/66 (87) 97 01/25/20 06:00 80 20 132/68 (89) 97 01/25/20 05:00 82 20 132/78 (96) 99 01/25/20 04:53 81 16 60 01/25/20 04:00 74 01/25/20 04:00 60 01/25/20 04:00 98.9 80 19 133/78 (96) 100 01/25/20 04:00 Mechanical Ventilator 01/25/20 03:16 78 16 60 01/25/20 03:00 72 18 119/65 (83) 96 01/25/20 02:00 78 18 116/65 (82) 96 01/25/20 01:27 84 19 70 01/25/20 01:00 71 18 110/55 (73) 95 01/25/20 00:00 45 01/25/20 00:00 Mechanical Ventilator 01/25/20 00:00 71 01/25/20 00:00 98.6 75 19 128/72 (90) 97 01/24/20 23:16 91 18 45 01/24/20 23:00 77 18 123/63 (83) 96 01/24/20 22:00 95 18 131/74 (93) 96 01/24/20 21:01 83 17 45 01/24/20 21:00 90 18 115/62 (79) 95 01/24/20 21:00 115/62 01/24/20 20:00 45 01/24/20 20:00 98.8 84 19 132/72 (92) 97 01/24/20 20:00 Mechanical Ventilator 01/24/20 20:00 79 01/24/20 19:32 90 27 98 Mechanical Ventilator 45 01/24/20 19:32 78 18 45 01/24/20 19:00 79 18 136/76 (96) 97 01/24/20 18:00 99.4 83 19 108/82 (91) 98 01/24/20 17:19 90 23 30 01/24/20 16:00 Mechanical Ventilator 01/24/20 16:00 87 01/24/20 16:00 99.6 94 20 120/73 (89) 95 01/24/20 14:41 86 21 30 01/24/20 13:16 100 26 30 Height (Feet): 5 Height (Inches): 9.00 Weight (Pounds): 500 Microbiology Date/Time Source Procedure Growth Status 01/23/20 17:45 Blood Blood Culture - Preliminary NO GROWTH AFTER 24 HOURS Resulted 01/23/20 17:30 Blood Blood Culture - Preliminary NO GROWTH AFTER 24 HOURS Resulted 01/23/20 18:00 Rectum Received Laboratory Tests Test 01/24/20 16:52 01/25/20 05:24 01/25/20 08:35 White Blood Count 12.0 K/UL (4.8-10.8) H 10.4 K/UL (4.8-10.8) Red Blood Count 4.18 M/UL (4.70-6.10) L 3.86 M/UL (4.70-6.10) L Hemoglobin 11.9 G/DL (14.2-18.0) L 11.1 G/DL (14.2-18.0) L Hematocrit 38.0 % (42.0-52.0) L 35.1 % (42.0-52.0) L Mean Corpuscular Volume 91 FL (80-99) 91 FL (80-99) Mean Corpuscular Hemoglobin 28.5 PG (27.0-31.0) 28.7 PG (27.0-31.0) Mean Corpuscular Hemoglobin Concent 31.3 G/DL (32.0-36.0) L 31.6 G/DL (32.0-36.0) L Red Cell Distribution Width 16.3 % (11.6-14.8) H 13.9 % (11.6-14.8) Platelet Count 162 K/UL (150-450) 202 K/UL (150-450) Mean Platelet Volume 9.9 FL (6.5-10.1) 8.5 FL (6.5-10.1) Neutrophils (%) (Auto) 90.6 % (45.0-75.0) H % (45.0-75.0) Lymphocytes (%) (Auto) 6.6 % (20.0-45.0) L % (20.0-45.0) Monocytes (%) (Auto) 2.2 % (1.0-10.0) % (1.0-10.0) Eosinophils (%) (Auto) 0.0 % (0.0-3.0) % (0.0-3.0) Basophils (%) (Auto) 0.3 % (0.0-2.0) % (0.0-2.0) Differential Total Cells Counted 100 Neutrophils % (Manual) 87 % (45-75) H Lymphocytes % (Manual) 10 % (20-45) L Monocytes % (Manual) 3 % (1-10) Eosinophils % (Manual) 0 % (0-3) Basophils % (Manual) 0 % (0-2) Band Neutrophils 0 % (0-8) Platelet Estimate Adequate Platelet Morphology Normal Hypochromasia 1+ Sodium Level 150 MMOL/L (136-145) H Potassium Level 3.7 MMOL/L (3.5-5.1) Chloride Level 107 MMOL/L (98-107) Carbon Dioxide Level 39 MMOL/L (21-32) H Anion Gap 4 mmol/L (5-15) L Blood Urea Nitrogen 29 mg/dL (7-18) H Creatinine 0.8 MG/DL (0.55-1.30) Estimat Glomerular Filtration Rate > 60 mL/min (>60) Glucose Level 199 MG/DL (74-106) #H Calcium Level 9.0 MG/DL (8.5-10.1) Total Bilirubin 0.3 MG/DL (0.2-1.0) Aspartate Amino Transf (AST/SGOT) 74 U/L (15-37) H Alanine Aminotransferase (ALT/SGPT) 70 U/L (12-78) Alkaline Phosphatase 46 U/L (46-116) Troponin I 0.030 ng/mL (0.000-0.056) Total Protein 7.5 G/DL (6.4-8.2) Albumin 2.8 G/DL (3.4-5.0) L Globulin 4.7 g/dL Albumin/Globulin Ratio 0.6 (1.0-2.7) L Hepatitis A IgM Antibody Pending Hepatitis B Surface Antigen Pending Hepatitis B Core IgM Antibody Pending Hepatitis C Antibody Pending Arterial Blood pH 7.449 (7.350-7.450) Arterial Blood Partial Pressure CO2 54.7 mmHg (35.0-45.0) H Arterial Blood Partial Pressure O2 87.5 mmHg (75.0-100.0) Arterial Blood HCO3 37.1 mmol/L (22.0-26.0) H Arterial Blood Oxygen Saturation 96.6 % (95-100) Arterial Blood Base Excess 11.2 (-2-2) *H Alex Test Positive Current Medications Medications (Trade) Dose Ordered Sig/Phuong Route PRN Reason Start Time Stop Time Status Last Admin Dose Admin Acetaminophen/ Hydrocodone Bitart ([place] 10/325) 1 tab Q8H PRN ORAL For Pain 01/24/20 17:30 01/31/20 17:29 Albuterol/ Ipratropium (Albuterol/ Ipratropium) 3 ml Q4H PRN HHN Shortness of Breath 01/24/20 17:45 01/29/20 17:29 Albuterol/ Ipratropium (Albuterol/ Ipratropium) 3 ml Q4H PRN HHN Shortness of Breath 01/24/20 17:45 01/29/20 17:44 Aspirin (ASA) 81 mg DAILY ORAL 01/25/20 09:00 02/23/20 08:59 Atorvastatin Calcium (Lipitor) 10 mg BEDTIME ORAL 01/24/20 21:00 02/23/20 20:59 Enalapril Maleate (Vasotec) 5 mg EVERY 12 HOURS ORAL 01/24/20 21:00 02/23/20 08:59 Furosemide (Lasix) 20 mg EVERY 12 HOURS IV 01/25/20 10:15 02/24/20 10:14 01/25/20 12:08 Guaifenesin/ Dextromethorphan (Robitussin DM Syrup) 10 ml Q4H PRN ORAL For Cough 01/24/20 17:45 02/23/20 17:44 Heparin Sodium (Porcine) (Heparin 5000 units/ml) 5,000 units EVERY 12 HOURS SUBQ 01/24/20 21:00 02/23/20 20:59 Iohexol (Omnipaque 350 100ml) 100 ml NOW PRN INJ Radiology Procedure 01/24/20 17:45 01/25/20 17:38 Levetiracetam 750 mg/Dextrose 102.5 ml @ 440 mls/hr Q12H IV 01/25/20 00:00 02/23/20 11:59 01/25/20 12:08 Levofloxacin 150 ml @ 100 mls/hr QHS IVPB 01/24/20 21:00 01/30/20 22:59 01/24/20 20:53 Lorazepam (Ativan 2mg/ml 1ml) 1 mg Q4H PRN IV For Anxiety 01/24/20 17:30 01/31/20 17:29 Ondansetron HCl (Zofran) 4 mg Q6H PRN IVP Nausea & Vomiting 01/24/20 17:30 02/23/20 17:29 01/25/20 02:21 Pantoprazole (Protonix) 40 mg DAILY IVP 01/25/20 09:00 02/23/20 15:59 01/25/20 08:45 Theophylline (Aust[place]-Dur) 100 mg BID ORAL 01/24/20 18:00 02/23/20 17:59 Trazodone HCl (Desyrel) 50 mg BEDTIME ORAL 01/24/20 21:00 02/23/20 20:59 Charles Snyder MD Jan 25, 2020 13:10
--- NOTE | 2020-01-25 13:42 | NUR ---
ST NOTES: PATIENT REFERRED FOR SWALLOW EVALUATION AND CHART REVIEWED. PER RNSTEPHAN, PATIENT NOT READY FOR EVALUATION AND PLACED ON VENTILATOR NOW. PLAN: F/UP FOR SWALLOW EVAL TOMORROW IF PATIENT IS READY.
--- NOTE | 2020-01-25 14:00 | NUR ---
Pt neck directly under stoma noticeably reddened and irritated. Rn's Franky & Karen at bedside and fully endorsed. Pictures taken immediately for wound care/documentation. Area cleansed and new trach gauze applied. Pt denies pain or discomfort.
--- NOTE | 2020-01-25 14:18 | Diagnostic Imaging Report ---
Indication:Leg pain and swelling Technique: Grayscale and duplex Doppler imaging of the veins in both lower extremities performed in real time utilizing compression and augmentation. Comparison: None Findings: The examination was significantly limited due to patient's very large body habitus. Portions of the superficial femoral vein were not visualized. Duplex Doppler interrogation of the veins in both lower extremity is performed from the common femoral vein to the popliteal vein. Normal venous compressibility demonstrated throughout as visualized. No thrombus identified as visualized. Waveform analysis shows good respiratory phasicity and augmentation. IMPRESSION: No evidence of deep venous thrombosis involving the lower extremities as visualized. Significant limitations.
--- NOTE | 2020-01-25 14:42 | NUR ---
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 98.4 HR 111 RR 24 B/P 145/79 TRACH/COOL AEROSOL 8L WBC 12.2 NA 153 CO2 38 AST 216 TROP 0.119 BNP 730 PH 7.27 PCO2 83.5 PO2 89.6 HCO3 38.2 O2 SAT 95.5 CXR= Cardiomegaly and vascular congestion without overt pulmonary edema. IS: ALB HHN ATROVENT HHN IV NS X 2 LITERS SOLU MEDROL IV ADMITTED TO ICU ICU STATUS DCP RETURN TO [facility]
--- NOTE | 2020-01-25 16:00 | NUR ---
NURSE NOTES: Received report from EMETERIO Wilkins. The patient is resting on the bed without acute distress or shortness of breath. The patient's bed in the lowest position, call light in reach, and fall, aspiration, and seizure precaution reinforced. IV site intact and patent. The patient is on ventilator AC 16, TV 600, FiO2 60%, and oxygen saturation is 99%. The patient is on clear liquid diet. Per Franky, the patient has not had episode of vomiting during his shift. Wound reassessed and picture taken and uploaded. The patient's belongings checked with the patient and two nurses and signed by two nurses. Will continue plan of care.
--- NOTE | 2020-01-25 16:00 | NUR ---
TRANSFER TO FLOOR: Patient transferred to [facility], per Dr. Lombardo. Report given to EMETERIO painting. Belongings and medications given to EMETERIO painting. patient is awake and alert connected to mechanical ventialtor with setting saturating at 96%.
[2020-01-25] MEDS ORDERED: Albuterol/Ipratropium 3ml neb HHN PRN ×2 (16:30)
[2020-01-25] MEDS ORDERED: Guaifenesin/DM 10ml syrup ORAL PRN (16:30)
[2020-01-25] MEDS ORDERED: HYDROcodone/Acetamin 10/325 tab ORAL PRN (16:30)
--- NOTE | 2020-01-25 16:30 | Consultation ---
DATE OF CONSULTATION: 01/25/2020 CONSULTING PHYSICIAN: Mathew Singleton M.D. CHIEF COMPLAINT: Nausea, vomiting, anemia, dysphagia. HISTORY OF PRESENT ILLNESS: This is a correction patient, morbid obese who was brought to the hospital mainly for respiratory issues. The patient had persistent vomiting and GI consult requested for evaluation. According to the nurses, the patient is able to swallow even though he has a trach. Apparently, he was not on a vent in the correction, just trach was used for him to be able to breathe, but he mentioned to the nurses that whenever he goes on a vent, he starts getting vomiting. PAST MEDICAL HISTORY: 1. History of morbid obesity. 2. Hypertension. 3. Chronic respiratory failure with a trach. 4. Psychiatric disorder. 5. Intermittent atrial fibrillation. ALLERGIES: To fish, penicillin, sulfa. MEDICATIONS: Please see medication reconciliation list. SOCIAL HISTORY: Currently lives in a correction. No history of tobacco, alcohol, or drug abuse. FAMILY HISTORY: Noncontributory. PAST SURGICAL HISTORY: Tracheostomy, also cholecystectomy. PHYSICAL EXAMINATION: VITAL SIGNS: Temperature is 99.7, pulse 82, respirations 21, blood pressure is 131/57. HEENT: Normocephalic, atraumatic. Sclerae icterus. NECK: Supple. No evidence of obvious lymphadenopathy CARDIOVASCULAR: Regular rate and rhythm. Plus S1-S2. LUNGS: Decreased breath sounds bilaterally and diffusely. ABDOMEN: Soft, nontender. No rebound. No peritoneal sign. EXTREMITIES: No cyanosis, no clubbing, no edema. LABORATORY DATA: White count is 10, hemoglobin 11, hematocrit 35, platelet count is 202. ASSESSMENT AND PLAN: This is a 49-year-old male with chronic respiratory failure with trach, but not on the vent, obese who was brought to the hospital with mainly shortness of breath, was found to be vomiting and being anemic. Plan is to start the patient on clear liquid diet and advance as tolerated. Order a KUB to evaluate for constipation and bowel obstruction, which I doubt. We have also ordered anemia workup including iron panel, B12. Ordered stool studies. Ordered amylase and lipase for tomorrow. We are going to hold off the GI procedure at this time given the patient's current condition. We are going to plan endoscopy if the patient has significant evidence of bleeding or vomiting. I want to thank Dr. Efren Herrera for this kind referral. aMthew Singleton M.D. DR: BROOKE JOB#: [id number] CC: Efren Herrera M.D.; Fax#: [phone]
--- NOTE | 2020-01-25 16:45 | Consultation ---
DATE OF CONSULTATION: 01/25/2020 INFECTIOUS DISEASES CONSULTATION CONSULTING PHYSICIAN: Charles Snyder M.D. REFERRING PHYSICIAN: Michael Lombardo M.D. REASON FOR CONSULTATION: Evaluation of the patient for possible sepsis, pneumonia, and antibiotic management. HISTORY OF PRESENT ILLNESS: The patient is a 49-year-old male with multiple medical problems listed below who was admitted to this medical center due to shortness of breath, hypoxia. The patient subsequently was found to have upper GI bleed and because of that the patient was transferred to the ICU. The patient was found also have leukocytosis and chest x-ray showed pulmonary vascular congestion. Infectious Diseases consultation has been requested for evaluation of patient for possible pneumonia and admitted for possible antibiotic management. PAST MEDICAL HISTORY: 1. History of seizure disorder. 2. COPD. 3. Bipolar disorder. 4. Depression. 5. Atrial fibrillation. ALLERGIES: History of allergy to fish, penicillin, and sulfa. FAMILY HISTORY: Noncontributory . SOCIAL HISTORY: The patient is a long term. The patient has history of smoking in the past. REVIEW OF SYSTEMS: Limited. A 10-point review was done. Positive pertinent findings as mentioned above. The patient denies abdominal pain. No significant cough. PHYSICAL EXAMINATION: VITAL SIGNS: Temperature 99.9, blood pressure 131/57, pulse rate 82, respiratory rate 18. HEENT: No pale conjunctivae. No icterus. NECK: No lymphadenopathy. CHEST: Coarse breathing sounds. HEART: S1 and S2. ABDOMEN: Obese, nontender. EXTREMITIES: No cyanosis at this time. NEUROLOGIC: Awake. LABORATORY AND DIAGNOSTIC DATA: BUN 39, creatinine 0.8. AST, ALT, alkaline phosphatase unremarkable. Blood culture is pending. Ultrasound of the abdomen showed fatty liver, status post cholecystectomy. ASSESSMENT: The patient is a 49-year-old male with: 1. Low-grade fever. 2. Status post leukocytosis. 3. ? aspiration pneumonia. PLAN: 1. We will start the patient on Levaquin and Flagyl day #1. 2. Monitor CBC. 3. Monitor BMP. 4. Monitor cultures (blood, ). 5. Monitor chest x-ray. 6. We will follow GI recommendations. Based on the patient's clinical course and labs, we will do further recommendations. Thank you for this consultation. I will follow the patient with you during this hospitalization. Charles Snyder M.D. DR: Og JOB#: [id number] CC:
[2020-01-25] MEDS ORDERED: Omnipaque 350 100ml vial INJ PRN (17:00)
--- NOTE | 2020-01-25 18:00 | NUR ---
NURSE NOTES: The patient is stable without acute distress or shortness of breath. The patient is still refusing care and being aggressive. Will continue plan of care.
--- NOTE | 2020-01-25 19:10 | NUR ---
NURSE NOTES: Pt report received from MADAY STORM. pt remains stable. pt is alert and oriented times 3, able to follow commands. pt is on trach to vent, satting at 99%, no resp distress noted. pt is on head of training and development showing NSR, no cardiac distress noted. pt bed is low, locked, armed, bed rails up times 3, call light within reach. will follow plan of carer.
--- NOTE | 2020-01-25 19:10 | NUR ---
HAND-OFF: Report given to EMETERIO Singleton. The patient is resting on the bed without acute distress or shortness of breath. The patient's bed in the lowest position, call light in reach, and fall, aspiration, and seizure precaution reinforced. IV site intact and patent. The patient is on mechanical ventilator as ordered and tolerating well the ordered ventilator setting. Endorsed plan of care.
[2020-01-25] MEDS: TraZODone 50mg tab ORAL SCH (21:27)
[2020-01-26] VITALS: BP 133/70
--- NOTE | 2020-01-26 00:30 | NUR ---
NURSE NOTES: Spoke to doctor Javier in person. stated that pt was not able to get imaging ordered for 01.25.2020 due to his large size. MD is aware. also stated nurse from day shift stated that pt has had episodes of possible bloody stool. also stated to doctor that pt has not had any BM so far on car shifter. MD is aware.
[2020-01-26] MEDS: levETIRAcetam 750 MG in D5W 95 ML IV SCH ×2 (00:42→12:12)
[2020-01-26 04:00] VITALS: BP 118/63
[2020-01-26 05:33] LABS: BASOPHILS % (AUTO) 0.3 % (0.0-2.0); HEMATOCRIT 35.2 % (42.0-52.0); HEMOGLOBIN 11.5 G/DL (14.2-18.0); LYMPHOCYTES % (AUTO) 12.4 % (20.0-45.0); MEAN CORPUSCULAR VOLUME 90 FL (80-99); MONOCYTES % (AUTO) 8.4 % (1.0-10.0); NEUTROPHILS % (AUTO) 78.9 % (45.0-75.0); PLATELET COUNT 181 K/UL (150-450); RED BLOOD COUNT 3.93 M/UL (4.70-6.10); RED CELL DISTRIBUTION WIDTH 14.1 % (11.6-14.8); WHITE BLOOD COUNT 11.4 K/UL (4.8-10.8)
[2020-01-26 05:54] LABS: AMYLASE 22 U/L (25-115)
[2020-01-26 06:06] LABS: ALANINE AMINOTRANSFERASE 60 U/L (12-78); ALBUMIN 2.6 G/DL (3.4-5.0); ALBUMIN/GLOBULIN RATIO 0.6 (1.0-2.7); ALKALINE PHOSPHATASE 46 U/L (46-116); ANION GAP 9 mmol/L (5-15); ASPARTATE AMINO TRANSFERASE 38 U/L (15-37); BILIRUBIN,TOTAL 0.3 MG/DL (0.2-1.0); BLOOD UREA NITROGEN 27 mg/dL (7-18); CALCIUM 8.8 MG/DL (8.5-10.1); CARBON DIOXIDE 34 MMOL/L (21-32); CHLORIDE 107 MMOL/L (98-107); CREATININE 0.9 MG/DL (0.55-1.30); PHOSPHORUS 2.2 MG/DL (2.5-4.9); POTASSIUM 3.2 MMOL/L (3.5-5.1); SODIUM 150 MMOL/L (136-145)
[2020-01-26 06:14] LABS: % IRON SATURATION 16 % (15-50); IRON 39 ug/dL (50-175); TOTAL IRON BINDING CAPACITY 245 ug/dL (250-450)
--- NOTE | 2020-01-26 07:25 | NUR ---
NURSE NOTES: Received report from Srinivasan Salazar RN. Patient asleep in bed, opens eyes spontaneously, able to make needs known and follow commands. Trach to vent with settings of AC 16, TV 600, FiO2 60%, PEEP 0, saturating at 100%. Condom catheter in place and draining to gravity. Right hand 22g IV site patent and asymptomatic. Bed locked in lowest position with padded side rails up x 3. All needs attended to. Call light within reach. Will continue to monitor.
--- NOTE | 2020-01-26 07:27 | NUR ---
HAND-OFF: Report given to SANJIV George RN. Pt remains stable.
--- NOTE | 2020-01-26 07:30 | Consultation ---
DATE OF CONSULTATION: 01/25/2020 CARDIOLOGY CONSULTATION CONSULTING PHYSICIAN: Franky Stern M.D. REQUESTING PHYSICIAN: Efren Herrera M.D. REASON: Elevated troponin level and natriuretic peptide assay. HISTORY OF PRESENT ILLNESS: This is a 49-year-old male with severe COPD and morbid obesity, who resides at an extended care subacute facility. He took a fall off his wheelchair and could not be raised to his bed. He weighs almost 500 pounds. Paramedics were summoned and it took a day for them to transfer him here for further care. In the emergency room, he was tachypneic and hypoxic. He ultimately was admitted to the medical [facility]. I have been asked to address his abnormal cardiac function study. PAST MEDICAL HISTORY: Morbid obesity, hypertension, narcotic analgesic dependency, chronic psychosis, hypertension, paroxysmal atrial fibrillation. ALLERGIES: Include sulfa, penicillin, trimethoprim. FAMILY HISTORY: Noncontributory. SOCIAL HISTORY: He is disabled. He smoked 1 pack of cigarettes daily for 20 years, but quit. No alcohol or substance abuse. REVIEW OF SYSTEMS: He is on anticoagulation for cardioembolic prophylaxis. He has not noted any bleeding. There is no history of stroke. There is no known history of abnormal blood clotting or DVT. He has severe COPD. He has restrictive lung disease. He does have a history of atrial fibrillation as previously noted. PHYSICAL EXAMINATION: VITAL SIGNS: Blood pressure 142/75, pulse 78, respirations 20, temperature 99.7, and oxygen saturation 99%. GENERAL: Orally intubated, mechanically ventilated. LUNGS: Bilateral breath sounds. CARDIAC: Regular rhythm and rate. Normal S1, S2. ABDOMEN: Soft. EXTREMITIES: With 1+ edema. LABORATORY DATA: Troponin on admission 0.119, repeated today 0.030. Natriuretic peptide 449. BUN 29, creatinine 0.8, sodium 150 potassium 3.7, bicarb 39. Albumin 2.8. ABG, 7.45, 55, 87. IMPRESSION: 1. Respiratory failure. 2. Hypoxia. 3. Acute on chronic respiratory acidosis. 4. Acute myocardial ischemia, precipitated by acute respiratory decompensation. 5. Elevated natriuretic peptide essay, likely reflects chronic right-sided heart failure. 6. Paroxysmal atrial fibrillation, on anticoagulation. PLAN: 1. Ventilator support. 2. Weaning efforts. 3. Continue full anticoagulation. 4. Titrate anti-failure regimen based on clinical parameters. 5. No invasive procedures planned. 6. Echocardiogram to be attempted, although window likely to be poor due to body habitus. 7. We will follow and make adjustments to plan of care and treatment plan as needed. The patient's body habitus limits any interventions other than medical therapy. Franky Stern M.D. DR: SMITA JOB#: [id number] CC:
--- NOTE | 2020-01-26 07:35 | NUR ---
NURSE NOTES: Received report from Faiza Velasquez RN. Patient obtunded, nonverbal, unable to make needs known and follow commands. Trach to vent with settings of AC 12, TV 600, FiO2 28%, PEEP 5, no s/s of respiratory distress noted. GT feeding of Glucerna 1.5 running @ 45 cc/hr, no residuals noted. HoB elevated. Condom catheter in place and draining to gravity. Left hand 22g IV site patent and asymptomatic. Bed locked in lowest position with padded side rails up x 3. All needs attended to. Will continue to monitor. Addendum: 01/26/20 at 1508 by Emilie Juarez RN wrong patient
[2020-01-26 08:00] VITALS: BP 140/77
--- NOTE | 2020-01-26 08:06 | General Progress Note ---
Assessment/Plan Assessment/Plan: 1. History of morbid obesity. 2. Hypertension. 3. Chronic respiratory failure with a trach. 4. Psychiatric disorder. 5. Intermittent atrial fibrillation. 6. Anemia 7. ? GIB ppi stable H&H no obvious GIB pending swallow eval for today Subjective ROS Limited/Unobtainable: No Allergies: Coded Allergies: FISH DERIVED (Verified Allergy, Unknown, 01/23/20) PENICILLINS (Verified Allergy, Unknown, 01/23/20) SULFAMETHOXAZOLE (Verified Allergy, Unknown, 01/23/20) TRIMETHOPRIM (Verified Allergy, Unknown, 01/23/20) Objective Last 24 Hour Vital Signs Date Time Temp Pulse Resp B/P (MAP) Pulse Ox O2 Delivery O2 Flow Rate FiO2 01/26/20 07:10 72 22 60 01/26/20 05:26 59 21 60 01/26/20 04:00 60 01/26/20 04:00 Mechanical Ventilator 01/26/20 04:00 56 01/26/20 04:00 98.6 55 24 118/63 (81) 97 01/26/20 03:30 58 18 60 01/26/20 01:30 50 16 60 01/26/20 00:00 99.4 59 20 133/70 (91) 98 01/26/20 00:00 Mechanical Ventilator 01/26/20 00:00 58 01/26/20 00:00 60 01/25/20 23:30 59 16 60 01/25/20 21:30 68 19 50 01/25/20 21:00 103/58 01/25/20 20:00 Mechanical Ventilator 01/25/20 20:00 60 01/25/20 20:00 63 01/25/20 20:00 99.7 78 20 142/75 (97) 99 01/25/20 19:30 69 18 50 01/25/20 17:20 65 20 60 01/25/20 16:00 99.9 78 20 127/71 (89) 99 01/25/20 16:00 76 01/25/20 16:00 Mechanical Ventilator 01/25/20 16:00 60 01/25/20 16:00 Mechanical Ventilator 01/25/20 15:20 77 20 60 01/25/20 14:00 66 18 123/62 (82) 97 01/25/20 13:16 77 20 60 01/25/20 13:00 65 18 121/60 (80) 100 01/25/20 12:00 99.7 82 21 131/57 (81) 99 01/25/20 12:00 66 01/25/20 12:00 Mechanical Ventilator 01/25/20 12:00 60 01/25/20 11:00 87 18 166/84 (111) 100 01/25/20 10:48 88 22 60 01/25/20 10:00 83 13 165/91 (115) 100 01/25/20 09:27 86 22 60 01/25/20 09:00 84 14 157/93 (114) 100 01/25/20 08:28 134/74 Intake and Output 01/25/20 01/26/20 19:00 07:00 Intake Total 3212.5 ml 352.5 ml Balance 3212.5 ml 352.5 ml Intake Oral 2780 ml IV Total 412.5 ml 352.5 ml Other 20 ml # Voids 5 Laboratory Tests 01/25/20 08:35: Arterial Blood pH 7.449, Arterial Blood Partial Pressure CO2 54.7H, Arterial Blood Partial Pressure O2 87.5, Arterial Blood HCO3 37.1H, Arterial Blood Oxygen Saturation 96.6, Arterial Blood Base Excess 11.2*H, Alex Test Positive 01/26/20 04:20: White Blood Count 11.4H, Red Blood Count 3.93L, Hemoglobin 11.5L, Hematocrit 35.2L, Mean Corpuscular Volume 90, Mean Corpuscular Hemoglobin 29.2, Mean Corpuscular Hemoglobin Concent 32.6, Red Cell Distribution Width 14.1, Platelet Count 181, Mean Platelet Volume 9.5, Neutrophils (%) (Auto) 78.9H, Lymphocytes ( %) (Auto) 12.4L, Monocytes (%) (Auto) 8.4, Eosinophils (%) (Auto) 0.0, Basophils (%) (Auto) 0.3, Sodium Level 150H, Potassium Level 3.2L, Chloride Level 107, Carbon Dioxide Level 34H, Anion Gap 9, Blood Urea Nitrogen 27H, Creatinine 0.9, Estimat Glomerular Filtration Rate > 60, Glucose Level 162H, Calcium Level 8.8, Phosphorus Level 2.2L, Magnesium Level 2.0, Iron Level 39L, Total Iron Binding Capacity 245L, Percent Iron Saturation 16, Unsaturated Iron Binding 206, Total Bilirubin 0.3, Aspartate Amino Transf (AST/SGOT) 38H, Alanine Aminotransferase (ALT/SGPT) 60, Alkaline Phosphatase 46, Total Protein 7.1, Albumin 2.6L, Globulin 4.5, Albumin/Globulin Ratio 0.6L, Amylase Level 22L , Lipase 135 Height (Feet): 5 Height (Inches): 9.00 Weight (Pounds): 500 General Appearance: no apparent distress EENT: normal ENT inspection Neck: supple Cardiovascular: normal rate Respiratory/Chest: decreased breath sounds Abdomen: normal bowel sounds, non tender, soft Extremities: non-tender Mathew Singleton MD Jan 26, 2020 08:06
[2020-01-26] MEDS: Heparin 5000 units/ml inj SUBQ SCH ×2 (09:00→20:14)
[2020-01-26] MEDS ORDERED: NS 275ml ONE (09:00)
[2020-01-26] MEDS ORDERED: Tubing IV Secondary IV ONE (09:00)
--- NOTE | 2020-01-26 09:06 | NUR ---
ST NOTE: PATIENT STILL NOT ALERT FOR SWALLOW EVAL PER RN NOTE. WILL CHECK DAILY FOR READINESS OR PAGE CARTOGRAPHIC DESIGNER OVERHEAD.
[2020-01-26] MEDS: Theophylline ER 100mg ORAL SCH ×2 (09:53→18:25)
[2020-01-26] MEDS: Pantoprazole Inj IVP SCH (09:53)
[2020-01-26] MEDS: Enalapril 5mg tab ORAL SCH ×2 (09:53→20:13)
[2020-01-26] MEDS: Aspirin Baby 81mg ORAL SCH (09:53)
--- NOTE | 2020-01-26 10:42 | Pulmonolgy Critical Care Note ---
Critical Care - Asmt/Plan Problems: (1) Acute on chronic respiratory failure (2) COPD (chronic obstructive pulmonary disease) (3) Pulmonary edema (4) Morbid obesity (5) Hx of seizure disorder Respiratory: monitor respiratory rate, adjust FIO2, CXR Cardiac: continue to monitor HR/BP Renal: F/U I&O, check electrolytes, other - continue lasix, watch K and bun/ creatinine Infectious Disease: check cultures, continue antibiotics, add antibiotics Gastrointestinal: other - swallow study Endocrine: monitor blood sugar Hematologic: monitor H/H, transfuse if hgb<8.5 Neurologic: PRN Ativan, keep patient comfortable Affect: PRN ativan Prophylaxis: Protonix Notes Reviewed: director nicu, cardio, ID Discussed with: nurses, consultants, manager of casesupply chain systems manager - Objective Last 24 Hour Vital Signs Date Time Temp Pulse Resp B/P (MAP) Pulse Ox O2 Delivery O2 Flow Rate FiO2 01/26/20 09:53 140/77 01/26/20 09:10 45 16 60 01/26/20 08:00 97.9 51 18 140/77 (98) 97 01/26/20 08:00 60 01/26/20 07:10 72 22 60 01/26/20 05:26 59 21 60 01/26/20 04:00 60 01/26/20 04:00 Mechanical Ventilator 01/26/20 04:00 56 01/26/20 04:00 98.6 55 24 118/63 (81) 97 01/26/20 03:30 58 18 60 01/26/20 01:30 50 16 60 01/26/20 00:00 99.4 59 20 133/70 (91) 98 01/26/20 00:00 Mechanical Ventilator 01/26/20 00:00 58 01/26/20 00:00 60 01/25/20 23:30 59 16 60 01/25/20 21:30 68 19 50 01/25/20 21:00 103/58 01/25/20 20:00 Mechanical Ventilator 01/25/20 20:00 60 01/25/20 20:00 63 01/25/20 20:00 99.7 78 20 142/75 (97) 99 01/25/20 19:30 69 18 50 01/25/20 17:20 65 20 60 01/25/20 16:00 99.9 78 20 127/71 (89) 99 01/25/20 16:00 76 01/25/20 16:00 Mechanical Ventilator 01/25/20 16:00 60 01/25/20 16:00 Mechanical Ventilator 01/25/20 15:20 77 20 60 01/25/20 14:00 66 18 123/62 (82) 97 01/25/20 13:16 77 20 60 01/25/20 13:00 65 18 121/60 (80) 100 01/25/20 12:00 99.7 82 21 131/57 (81) 99 01/25/20 12:00 66 01/25/20 12:00 Mechanical Ventilator 01/25/20 12:00 60 01/25/20 11:00 87 18 166/84 (111) 100 01/25/20 10:48 88 22 60 Status: awake Condition: critical, improving HEENT: atraumatic Neck: full ROM Lungs: rales, rhonchi Heart: HR/BP stable Abdomen: soft Extremities: no C/C/E, edema Micro: Microbiology Date/Time Source Procedure Growth Status 01/23/20 17:45 Blood Blood Culture - Preliminary NO GROWTH AFTER 48 HOURS Resulted 01/23/20 17:30 Blood Blood Culture - Preliminary NO GROWTH AFTER 48 HOURS Resulted 01/25/20 05:56 Sputum Induced Gram Stain - Final Resulted 01/25/20 05:56 Sputum Induced Sputum Culture - Preliminary NORMAL UPPER RESPIRATORY TEMO PRESENT Resulted 01/23/20 18:00 Rectum VRE Culture - Final NO VANCOMYCIN RESISTANT ENTEROCOCCUS ... Complete Critical Care - Subjective Interval Events: fio2 is 60% Condition: improving EKG Rhythm: Sinus Rhythm FI02: 60 Vent Support Breath Rate: 16 Vent Support Mode: AC Vent Tidal Volume: 600 Sputum Amount: Small PEEP: 0.0 PIP: 32 I&O: Intake and Output 01/25/20 01/26/20 19:00 07:00 Intake Total 3212.5 ml 352.5 ml Balance 3212.5 ml 352.5 ml Intake Oral 2780 ml IV Total 412.5 ml 352.5 ml Other 20 ml # Voids 5 Labs: Laboratory Tests Test 01/26/20 04:20 White Blood Count 11.4 K/UL (4.8-10.8) H Red Blood Count 3.93 M/UL (4.70-6.10) L Hemoglobin 11.5 G/DL (14.2-18.0) L Hematocrit 35.2 % (42.0-52.0) L Mean Corpuscular Volume 90 FL (80-99) Mean Corpuscular Hemoglobin 29.2 PG (27.0-31.0) Mean Corpuscular Hemoglobin Concent 32.6 G/DL (32.0-36.0) Red Cell Distribution Width 14.1 % (11.6-14.8) Platelet Count 181 K/UL (150-450) Mean Platelet Volume 9.5 FL (6.5-10.1) Neutrophils (%) (Auto) 78.9 % (45.0-75.0) H Lymphocytes (%) (Auto) 12.4 % (20.0-45.0) L Monocytes (%) (Auto) 8.4 % (1.0-10.0) Eosinophils (%) (Auto) 0.0 % (0.0-3.0) Basophils (%) (Auto) 0.3 % (0.0-2.0) Sodium Level 150 MMOL/L (136-145) H Potassium Level 3.2 MMOL/L (3.5-5.1) L Chloride Level 107 MMOL/L (98-107) Carbon Dioxide Level 34 MMOL/L (21-32) H Anion Gap 9 mmol/L (5-15) Blood Urea Nitrogen 27 mg/dL (7-18) H Creatinine 0.9 MG/DL (0.55-1.30) Estimat Glomerular Filtration Rate > 60 mL/min (>60) Glucose Level 162 MG/DL (74-106) H Calcium Level 8.8 MG/DL (8.5-10.1) Phosphorus Level 2.2 MG/DL (2.5-4.9) L Magnesium Level 2.0 MG/DL (1.8-2.4) Iron Level 39 ug/dL (50-175) L Total Iron Binding Capacity 245 ug/dL (250-450) L Percent Iron Saturation 16 % (15-50) Unsaturated Iron Binding 206 ug/dL (112-346) Total Bilirubin 0.3 MG/DL (0.2-1.0) Aspartate Amino Transf (AST/SGOT) 38 U/L (15-37) H Alanine Aminotransferase (ALT/SGPT) 60 U/L (12-78) Alkaline Phosphatase 46 U/L (46-116) Total Protein 7.1 G/DL (6.4-8.2) Albumin 2.6 G/DL (3.4-5.0) L Globulin 4.5 g/dL Albumin/Globulin Ratio 0.6 (1.0-2.7) L Amylase Level 22 U/L (25-115) L Lipase 135 U/L (73-393) Michael Lombardo MD Jan 26, 2020 10:42
--- NOTE | 2020-01-26 10:47 | NUR ---
RESPIRATORY NOTE: Pt does not want ABG drawn at this moment. Pt wants to rest first. Will try later.
[2020-01-26 12:00] VITALS: BP 136/84
--- NOTE | 2020-01-26 12:07 | NUR ---
NURSE NOTES: ABG results and K 3.[address] Lombardo, awaiting orders
[2020-01-26] MEDS ORDERED: Sodium Chloride for KCL Premix X 4hrs IV SCH (13:00)
[2020-01-26] MEDS: LORazepam Inj 2mg/ml 1ml IV PRN (14:33)
--- NOTE | 2020-01-26 15:20 | NUR ---
ST NOTE: PATIENT STILL NOT ALERT FOR SWALLOW EVAL PER RN NOTE. WILL CHECK DAILY FOR READINESS OR PAGE PLUMBING SERVICE TECHNICIAN OVERHEAD. ST NOTE: (0890) PATIENT SEDATED, NOT SAFE TO PARTICIPATE IN P.O. TRIALS
[2020-01-26 16:00] VITALS: BP 137/89
--- NOTE | 2020-01-26 16:03 | Diagnostic Imaging Report ---
Indication: Dyspnea Comparison: 01/25/2020 A single view chest radiograph was obtained. Findings: Pulmonary vascular congestion demonstrated with cardiomegaly. Tracheostomy again noted. IMPRESSION: No change from the prior exam
--- NOTE | 2020-01-26 17:44 | Infectious Diseases Prog Note ---
Assessment/Plan Assessment/Plan ASSESSMENT: The patient is a 49-year-old male with: Low-grade fever. Status post leukocytosis. Aspiration pneumonia. History of seizure disorder. COPD. Bipolar disorder. Depression. Atrial fibrillation PLAN: cont pt on Levaquin and Flagyl day # 2/ Monitor CBC Monitor BMP. Monitor cultures (blood ) Monitor chest x-ray. Subjective Allergies: Coded Allergies: FISH DERIVED (Verified Allergy, Unknown, 01/23/20) PENICILLINS (Verified Allergy, Unknown, 01/23/20) SULFAMETHOXAZOLE (Verified Allergy, Unknown, 01/23/20) TRIMETHOPRIM (Verified Allergy, Unknown, 01/23/20) Subjective comfortable afebrile Objective Vital Signs Last 24 Hour Vital Signs Date Time Temp Pulse Resp B/P (MAP) Pulse Ox O2 Delivery O2 Flow Rate FiO2 01/26/20 16:44 52 17 30 01/26/20 16:00 Mechanical Ventilator 01/26/20 15:02 56 17 30 01/26/20 13:01 51 14 30 01/26/20 12:00 60 01/26/20 12:00 Mechanical Ventilator 01/26/20 12:00 98.0 52 19 136/84 (101) 98 01/26/20 11:50 54 01/26/20 10:46 43 16 60 01/26/20 09:53 140/77 01/26/20 09:10 45 16 60 01/26/20 08:00 97.9 51 18 140/77 (98) 97 01/26/20 08:00 60 01/26/20 08:00 Mechanical Ventilator 01/26/20 07:47 54 01/26/20 07:10 72 22 60 01/26/20 05:26 59 21 60 01/26/20 04:00 60 01/26/20 04:00 Mechanical Ventilator 01/26/20 04:00 56 01/26/20 04:00 98.6 55 24 118/63 (81) 97 01/26/20 03:30 58 18 60 01/26/20 01:30 50 16 60 01/26/20 00:00 99.4 59 20 133/70 (91) 98 01/26/20 00:00 Mechanical Ventilator 01/26/20 00:00 58 01/26/20 00:00 60 01/25/20 23:30 59 16 60 01/25/20 21:30 68 19 50 3/2/20 21:00 103/58 01/25/20 20:00 Mechanical Ventilator 01/25/20 20:00 60 01/25/20 20:00 63 01/25/20 20:00 99.7 78 20 142/75 (97) 99 01/25/20 19:30 69 18 50 Height (Feet): 5 Height (Inches): 9.00 Weight (Pounds): 500 HEENT: mucous membranes moist Respiratory/Chest: no respiratory distress Cardiovascular: regularly irregular Abdomen: no organomegaly Microbiology Date/Time Source Procedure Growth Status 01/23/20 17:45 Blood Blood Culture - Preliminary NO GROWTH AFTER 48 HOURS Resulted 01/25/20 05:56 Sputum Induced Gram Stain - Final Resulted 01/25/20 05:56 Sputum Induced Sputum Culture - Preliminary NORMAL UPPER RESPIRATORY TEMO PRESENT Resulted 01/23/20 18:00 Rectum VRE Culture - Final NO VANCOMYCIN RESISTANT ENTEROCOCCUS ... Complete Laboratory Tests Test 01/26/20 04:00 01/26/20 04:20 Arterial Blood pH 7.518 (7.350-7.450) Arterial Blood Partial Pressure CO2 50.4 mmHg (35.0-45.0) H Arterial Blood Partial Pressure O2 107.6 mmHg (75.0-100.0) H Arterial Blood HCO3 40.0 mmol/L (22.0-26.0) H Arterial Blood Oxygen Saturation 98.0 % (95-100) Arterial Blood Base Excess 15.1 (-2-2) *H Alex Test Positive White Blood Count 11.4 K/UL (4.8-10.8) H Red Blood Count 3.93 M/UL (4.70-6.10) L Hemoglobin 11.5 G/DL (14.2-18.0) L Hematocrit 35.2 % (42.0-52.0) L Mean Corpuscular Volume 90 FL (80-99) Mean Corpuscular Hemoglobin 29.2 PG (27.0-31.0) Mean Corpuscular Hemoglobin Concent 32.6 G/DL (32.0-36.0) Red Cell Distribution Width 14.1 % (11.6-14.8) Platelet Count 181 K/UL (150-450) Mean Platelet Volume 9.5 FL (6.5-10.1) Neutrophils (%) (Auto) 78.9 % (45.0-75.0) H Lymphocytes (%) (Auto) 12.4 % (20.0-45.0) L Monocytes (%) (Auto) 8.4 % (1.0-10.0) Eosinophils (%) (Auto) 0.0 % (0.0-3.0) Basophils (%) (Auto) 0.3 % (0.0-2.0) Sodium Level 150 MMOL/L (136-145) H Potassium Level 3.2 MMOL/L (3.5-5.1) L Chloride Level 107 MMOL/L (98-107) Carbon Dioxide Level 34 MMOL/L (21-32) H Anion Gap 9 mmol/L (5-15) Blood Urea Nitrogen 27 mg/dL (7-18) H Creatinine 0.9 MG/DL (0.55-1.30) Estimat Glomerular Filtration Rate > 60 mL/min (>60) Glucose Level 162 MG/DL (74-106) H Calcium Level 8.8 MG/DL (8.5-10.1) Phosphorus Level 2.2 MG/DL (2.5-4.9) L Magnesium Level 2.0 MG/DL (1.8-2.4) Iron Level 39 ug/dL (50-175) L Total Iron Binding Capacity 245 ug/dL (250-450) L Percent Iron Saturation 16 % (15-50) Unsaturated Iron Binding 206 ug/dL (112-346) Total Bilirubin 0.3 MG/DL (0.2-1.0) Aspartate Amino Transf (AST/SGOT) 38 U/L (15-37) H Alanine Aminotransferase (ALT/SGPT) 60 U/L (12-78) Alkaline Phosphatase 46 U/L (46-116) Total Protein 7.1 G/DL (6.4-8.2) Albumin 2.6 G/DL (3.4-5.0) L Globulin 4.5 g/dL Albumin/Globulin Ratio 0.6 (1.0-2.7) L Amylase Level 22 U/L (25-115) L Lipase 135 U/L (73-393) Current Medications Medications (Trade) Dose Ordered Sig/Phuong Route PRN Reason Start Time Stop Time Status Last Admin Dose Admin Acetaminophen/ Hydrocodone Bitart ([place] 10/325) 1 tab Q8H PRN ORAL For Pain 01/25/20 16:30 01/31/20 16:29 Albuterol/ Ipratropium (Albuterol/ Ipratropium) 3 ml Q4H PRN HHN Shortness of Breath 01/25/20 16:30 01/29/20 16:29 Aspirin (ASA) 81 mg DAILY ORAL 01/26/20 09:00 02/23/20 08:59 01/26/20 09:53 Atorvastatin Calcium (Lipitor) 10 mg BEDTIME ORAL 01/25/20 21:00 02/23/20 20:59 01/25/20 21:27 Enalapril Maleate (Vasotec) 5 mg EVERY 12 HOURS ORAL 01/25/20 21:00 02/23/20 08:59 01/26/20 09:53 Furosemide (Lasix) 20 mg EVERY 12 HOURS IV 01/25/20 21:00 02/24/20 10:14 01/26/20 09:54 Guaifenesin/ Dextromethorphan (Robitussin DM Syrup) 10 ml Q4H PRN ORAL For Cough 01/25/20 16:30 02/23/20 16:29 Heparin Sodium (Porcine) (Heparin 5000 units/ml) 5,000 units EVERY 12 HOURS SUBQ 01/25/20 21:00 02/23/20 20:59 Levetiracetam 750 mg/Dextrose 102.5 ml @ 440 mls/hr Q12H IV 01/26/20 00:00 02/23/20 11:59 01/26/20 12:12 Levofloxacin 150 ml @ 100 mls/hr Q24H IVPB 01/25/20 21:00 02/01/20 20:59 01/25/20 21:28 Lorazepam (Ativan 2mg/ml 1ml) 1 mg Q4H PRN IV For Anxiety 01/25/20 17:26 01/31/20 17:25 01/26/20 14:33 Metronidazole 100 ml @ 100 mls/hr Q8H IVPB 01/25/20 22:30 02/01/20 14:29 01/26/20 14:54 Ondansetron HCl (Zofran) 4 mg Q6H PRN IVP Nausea & Vomiting 01/25/20 17:26 02/23/20 17:25 Pantoprazole (Protonix) 40 mg DAILY IVP 01/26/20 09:00 02/23/20 15:59 01/26/20 09:53 Theophylline ([place]-Dur) 100 mg BID ORAL 01/25/20 18:00 02/23/20 17:59 01/26/20 09:53 Trazodone HCl (Desyrel) 50 mg BEDTIME ORAL 01/25/20 21:00 02/23/20 20:59 01/25/20 21:27 Charles Snyder MD Jan 26, 2020 17:44
--- NOTE | 2020-01-26 19:14 | NUR ---
HAND-OFF: Report given to Riana Warner RN.
--- NOTE | 2020-01-26 19:52 | NUR ---
NURSE NOTES: Report received from EMETERIO Phan. Pt C/O back pain, aching, 08/04. Notified and new order received, will be carried out. A/O x4. SB with HR of 50s. On vent, Shiley 8, AC 14, TV 600, FIO2 30%, PEEP 0. Abd round, soft, and non-tender. IV on R H 22G, TKO. Bed in the lowest position. Side rails up x3 and padded. Will continue to monitor.
[2020-01-26 20:00] VITALS: BP 133/75
[2020-01-26] MEDS: TraZODone 50mg tab ORAL SCH (20:13)
[2020-01-26] MEDS: Morphine Sulfate 4mg/ml Inj (IV USE ONLY) IVP PRN (20:17)
[2020-01-26] MEDS ORDERED: Varibar Honey 250ml MC PRN (21:45)
[2020-01-26] MEDS ORDERED: Varibar Pudding 230ml MC PRN (21:45)
[2020-01-26] MEDS ORDERED: Varibar Nectar 240ml MC PRN (21:45)
--- NOTE | 2020-01-26 22:30 | Progress Note ---
DATE: 01/26/2020 SUBJECTIVE: The patient is somnolent, and does not want to communicate. PHYSICAL EXAMINATION: VITAL SIGNS: Blood pressure 126/64, pulse 52, respirations 14, and temperature 98. HEENT: Eyes were normal. ENT, mucous membranes were moist and intact. NECK: Supple with no JVD without lymph nodes. Tracheostomy site is clean. LUNGS: Clear. HEART: Normal sounds with regular beats. ABDOMEN: Soft and nontender with normal bowel sounds. EXTREMITIES: Warm without cyanosis, clubbing, or edema. The patient is on FiO2 60, . Mode is AC with tidal volume of 600, PEEP of 0. The patient has been followed by insurance appraiser. The patient has been seen by the brush cutter as well. Echocardiogram was ordered, but is yet unavailable. We will continue the treatment plan of the brush cutter and insurance appraiser. Repeat laboratory tests will be done in the a.m. Efren Herrera M.D. DR: ELIEZER JOB#: [id number] CC:
[2020-01-27] VITALS: BP 119/74
--- NOTE | 2020-01-27 00:20 | NUR ---
NURSE NOTES: Pt c/o back pain, aching, 9/10, non-radiating. PRN pain med given. Will continue to monitor.
[2020-01-27] MEDS: levETIRAcetam 750 MG in D5W 95 ML IV SCH ×3 (00:21→23:23)
[2020-01-27] MEDS: Morphine Sulfate 4mg/ml Inj (IV USE ONLY) IVP PRN ×4 (00:21→20:34)
[2020-01-27] MEDS: LORazepam Inj 2mg/ml 1ml IV PRN ×3 (01:15→22:33)
--- NOTE | 2020-01-27 01:56 | NUR ---
NURSE NOTES: Pt moderately agitated and PRN med given. VS WNL. No signs of acute distress noted at this time. Will continue to monitor.
--- NOTE | 2020-01-27 03:36 | NUR ---
NURSE NOTES: Pt refused to take VS. Risks and benefits explained but still refused. SB on electron beam welder, w/ HR of 50. No other distress noted at this time. Will continue to monitor.
[2020-01-27 04:51] LABS: BASOPHILS % (AUTO) 0.9 % (0.0-2.0); EOSINOPHILS % (AUTO) 1.1 % (0.0-3.0); HEMATOCRIT 37.6 % (42.0-52.0); HEMOGLOBIN 12.3 G/DL (14.2-18.0); LYMPHOCYTES % (AUTO) 24.3 % (20.0-45.0); MEAN CORPUSCULAR VOLUME 88 FL (80-99); MONOCYTES % (AUTO) 7.4 % (1.0-10.0); NEUTROPHILS % (AUTO) 66.3 % (45.0-75.0); PLATELET COUNT 139 K/UL (150-450); RED BLOOD COUNT 4.25 M/UL (4.70-6.10); RED CELL DISTRIBUTION WIDTH 13.7 % (11.6-14.8); WHITE BLOOD COUNT 9.7 K/UL (4.8-10.8)
[2020-01-27 05:32] LABS: ALANINE AMINOTRANSFERASE 61 U/L (12-78); ALBUMIN 2.8 G/DL (3.4-5.0); ALBUMIN/GLOBULIN RATIO 0.6 (1.0-2.7); ALKALINE PHOSPHATASE 45 U/L (46-116); ANION GAP 4 mmol/L (5-15); ASPARTATE AMINO TRANSFERASE 42 U/L (15-37); BILIRUBIN,TOTAL 0.5 MG/DL (0.2-1.0); BLOOD UREA NITROGEN 24 mg/dL (7-18); CALCIUM 8.7 MG/DL (8.5-10.1); CARBON DIOXIDE 38 MMOL/L (21-32); CHLORIDE 100 MMOL/L (98-107); CREATININE 0.8 MG/DL (0.55-1.30); SODIUM 143 MMOL/L (136-145)
[2020-01-27 05:38] LABS: POTASSIUM 2.4 MMOL/L (3.5-5.1)
--- NOTE | 2020-01-27 05:49 | NUR ---
NURSE NOTES: Notified Dr. Lombardo regarding K 2.4 and awaiting for call back.
--- NOTE | 2020-01-27 06:15 | Progress Note ---
DATE: 01/26/2020 CARDIOLOGY PROGRESS NOTE SUBJECTIVE: The patient remains bedbound. Continues to have limited mobility due to obesity, pain, and shortness of breath. OBJECTIVE: VITAL SIGNS: Blood pressure 140/77, heart rate 45 to 72, respiratory rate 16 to 22, and the patient is afebrile. GENERAL: The patient is on ventilator support. LUNGS: Diminished breath sounds. HEART: Regular rhythm and rate. Distant S1 and S2. ABDOMEN: Obese. EXTREMITIES: There is dependent edema. LABORATORY AND DIAGNOSTIC DATA: White count 11 and hemoglobin 11.5. Sodium 150, potassium 3.2, bicarb 34, BUN 27, creatinine 0.9, magnesium 2, and phosphorus 2.2. Troponin negative. ABG - 7.51, 50, and 107. Chest x-ray reveals pulmonary vascular congestion, unchanged. IMPRESSION: 1. Respiratory failure. 2. Metabolic alkalosis. 3. Multiple contusions. 4. Morbid obesity. 5. Dehydration. 6. Hypernatremia. 7. Hypokalemia. 8. Hypophosphatemia. 9. Moderate protein-calorie malnutrition. 10. Relative bradycardia. PLAN: 1. Free water replacement. 2. Potassium replacement. 3. Phosphorus replacement. 4. Respiratory hygiene. 5. Ventilator support. 6. Monitor acid-base parameters. 7. DVT prophylaxis. 8. Avoid beta-blockers or any other drugs with negative chronotropic potential. 9. Decrease diuretic dosing. Franky Stern M.D. DR: Diego JOB#: [id number] CC:
--- NOTE | 2020-01-27 07:00 | NUR ---
NURSE NOTES: Call back from Dr. Lombardo and no new order received. Will continue to monitor.
--- NOTE | 2020-01-27 07:29 | NUR ---
HAND-OFF: Report given to EMETERIO Norris. No acute distress noted at this time.
--- NOTE | 2020-01-27 07:30 | NUR ---
NURSE NOTES: Late entry: PT and report received from EMETERIO Castillo; AAOx4 nonverbal tries to mouth words but can not make out, trach to vent Shiley 8, AC 14; TV 600, 30%, peep 0; no S/S of respiratory distress; reported by PM nurse that PT gets agitated non-cooperative with staff at times; diet orders clear liquid; reported PT is incontinent, R-hand 22g infusing D5W @ 100cc/hr patent flushes well; skin issues upon morning assessment shows redness under skin folds along breast line; will continue to monitor PT.
[2020-01-27 08:00] VITALS: BP 135/75
[2020-01-27] MEDS: Theophylline ER 100mg ORAL SCH ×2 (08:58→18:29)
[2020-01-27] MEDS: Aspirin Baby 81mg ORAL SCH (08:58)
[2020-01-27] MEDS: Enalapril 5mg tab ORAL SCH ×2 (08:58→20:36)
[2020-01-27] MEDS: Pantoprazole Inj IVP SCH (08:59)
[2020-01-27] MEDS: Heparin 5000 units/ml inj SUBQ SCH ×2 (08:59→20:38)
[2020-01-27] MEDS ORDERED: Potassium Phosphate 20 MM in NS 275 ML IV ONE (09:00)
--- NOTE | 2020-01-27 10:00 | Progress Note ---
DATE: 01/25/2020 SUBJECTIVE: The patient is awake, alert, afebrile, hemodynamically stable. He was transferred out of the Intensive Care Unit, but he is now respirator-dependent. PHYSICAL EXAMINATION: VITAL SIGNS: Blood pressure 142/75, pulse is 78, respirations are 19, temperature is 99.7. HEENT: Eyes were normal. ENT, mucous membranes were moist and intact. NECK: Supple with no JVD without lymph nodes. Tracheostomy site is clean. LUNGS: Clear without rhonchi, rales, or wheezing. HEART: Normal sounds with regular beats. There is no tachycardia at rest. ABDOMEN: Soft, obese, and nontender with normal bowel sounds. EXTREMITIES: Warm without cyanosis, clubbing, or edema. LABORATORY AND DIAGNOSTIC DATA: Hemoglobin 11.1, hematocrit 35.9 with MCV of 91, WBC of 10.4, and platelets are 202. His BUN and creatinine is 29 and 0.8 respectively. His sodium is 150, potassium 3.7, chloride 107, CO2 is . His glucose is 129. 5.5. His troponin was undetected. Albumin is 2.8 and total protein is 7.5. Abdominal ultrasound, revealed hepatomegaly, status post cholecystectomy. Findings was limited because of body habitus. IMPRESSION: The patient has no nausea and vomiting. 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 The patient is followed closely by the military equipment specialist. Repeat laboratory tests will be done in the a.m. Efren Herrera M.D. DR: MURPHY JOB#: [id number] CC:
--- NOTE | 2020-01-27 10:18 | NUR ---
NOTES: REFERRED BY DR. BYRD FOR A SWALLOW EVALUATION, SEE FULL REPORT. PATIENT NOT ALERT PRIOR DAYS FOR EVALUATION. PATIENT SEEN PRIOR TO MORPHINE MEDS FOR BACK PAIN PER RN. CLEARED ON 01/26/[address] TAIWO GO FOR PO TRIALS/MEALS OF SOLID IF INDICATED BY SWALLOW EVALUATION. ACUTE ISSUES: RESPIRATORY FAILURE HYPOXIA AND HYPERCAPNIA, SEVERE COPD, R/O PNA (NEGATIVE RECENT 01/26/20 BUT HAS LUNG RHONCHI on 01/24/20 pulmonary infiltrate. PULMONARY VASCULAR CONGESTION CHF, HAS SMALL AMOUNTS OF TRACHEAL SECRETIONS (MILD YELLOW/WHITE THICK) NO NEED FOR SUCTION OF ORAL SECRETIONS REPORTED. RESP RATE 14 NOW 17 BPM, GOOD SP02 97% AND FI02 30. H/O SEVERE MORBID OBESITY CLASS III, CHRONIC RESP FAILURE (ON T COLLAR AT [facility]), SEIZURE D/O, COPD, SMOKING, PSYCH ISSUES (MDD, BIPOLAR, SCHIZOPHRENIA LONG-TERM USE OF PSYCHOTROPIC MEDS), HEP C, DM. PER POLST FULL CODE BUT TUBE FEEDING SECTION NOT COMPLETED. ADVANCED DIRECTIVE STATUS OK TUBE FEEDINGS. PATIENT REFUSED NGT PER RN YESTERDAY AND WANTS PO INTAKE FOR QUALITY OF LIFE PURPOSES. AT [facility] ON A REGULAR TYPE AND TEXTURE DIET AND THIN LIQUIDS WITH LARGE PORTIONS AND PBJ SANDWICHES (ON T COLLAR). PATIENT NOW ON CLEAR LIQUIDS SINCE 01/25/20 BY DONAVAN MARAVILLA WHO CLEARED FOR SOLIDS IF INDICATED. PATIENT DOES NOT WANT PM SPEAKING VALVE TRIAL NOW). PATIENT HAS BEEN ON CLEAR LIQUIDS W/O OVERT ASPIRATION BUT HAS SILENT ASPIRATION RISK DUE TO TRACH/VENT BUT RECENT CXR CLEAR. PER RN, BEING ON VENT MAKES HIM VOMIT AT TIMES. PATIENT IS ALERT AND APHONIC DUE TO TRACH (7 SHILEY TRACH CUFFED) AND VENT. HAS HAD PM SPEAKING VALVE AT [facility] BUT IT IS NOT HERE NOW PER PATIENT. HE IS WILLING HAVE SPEAKING VALVE TRIALS LATER TODAY OR TOMORROW. ONLY ONE UPPER ANTERIOR TOOTH AND MIN ANTERIOR LOWER TEETH NO MOLARS OVERALL AND NO DENTURES. PATIENT WAS MOSTLY USING GUMS TO CHEW SOLIDS AT [facility]. TEETH ARE IN POOR CONDITION, NEED BRUSHING. COMPLETED EVAL AT BEDSIDE WITH CUFF-INFLATED. INITIAL IMPRESSIONS: GROSSLY FUNCTIONAL SWALLOW WITH THIN LIQUIDS VIA STRAW SEQUENTIAL SIPS ONLY TAKING A FEW SIPS AT A TIME (RESP RATE GOOD 18 BPM) AND DISCOURAGED FROM DRINKING ENTIRE AMOUNT SEQUENTIALLY AT THIS TIME. NO ORAL RESIDUE NOR OVERT ASPIRATION. GROSSLY FUNCTIONAL SWALLOW WITH PUREED TSP (HOLD ON MASTICATED SOLIDS FOR NOW HAS MIN DENTITION). NO ORAL RESIDUE NOR OVERT ASPIRATION. NO SIGNIFICANT CHANGE IN VITAL SIGNS (RESP RATE 18 BPM AND GOOD SP02 AT 97) HAS SILENT ASPIRATION RISK DUE TO TRACH (AND COLOR / BLUE DYE TEST FALSE POSITIVE/NEGATIVES). ON VENT PER RN WHEN GOES ON VENT WILL VOMIT (NO VOMITING REPORTED PER RN) OROMOTOR SKILLS GROSSLY FUNCTIONAL, CANNOT TEST COUGH NOR VOICE DUE TO TRACH. RECOMMENDATIONS: CONSIDER MODIFIED BARIUM SWALLOW STUDY MBSS TO FURTHER ASSESS SWALLOW, DETERMINE SILENT ASPIRATION RISK/ETIOLOGY, AND ATTEMPT TRIAL TX. IF PO GIVEN FOR QUALITY OF LIFE (PT WANTS PO AND DOES NOT WANT TO WAIT FOR MBSS AND DOES NOT WANT NGT), CONSIDER UPGRADING TO [facility] SOFT GROUND (DISLIKES PUREED) AND THIN LIQUIDS (DISLIKES THICKENED LIQUIDS) WITH POSTED ASPIRATION AND REFLUX PRECAUTIONS AND ASSIST WITH MEALS. RESP RATE NOT ABOVE 25 BPM AND CHIN NEUTRAL AND/OR SLIGHTLY TUCKED SINCE DIFFICULT TO GET CURRENT BED AT [address] (NOW AT [facility] BUT MAY BE ABLE TO GET IT TO SITTING POSITION IF TOLERATED SINCE HE HAS BACK PAIN). PER MODESTO DE LA CRUZ, PATIENT DOESN'T WANT TO EAT NOW NOR ALLOW BED TO GO TO SITTING. SKILLED DYSPHAGIA MANAGEMENT AND TX AND PM SPEAKING EVAL/TX WHEN READY. LATER USE SPEAKING VALVE AND CUFF DEFLATION IF TOLERATED) EDUCATED/TRAINED STAFF (DOROTHY - MODESTO AND RN-SHANA) IN POSTED ASP/REFLUX PRECAUTIONS.
--- NOTE | 2020-01-27 10:44 | General Progress Note ---
Assessment/Plan Assessment/Plan: 1. History of morbid obesity. 2. Hypertension. 3. Chronic respiratory failure with a trach. 4. Psychiatric disorder. 5. Intermittent atrial fibrillation. 6. Anemia 7. ? GIB ppi stable H&H no obvious GIB eating well replace K Subjective ROS Limited/Unobtainable: Yes Allergies: Coded Allergies: FISH DERIVED (Verified Allergy, Unknown, 01/23/20) PENICILLINS (Verified Allergy, Unknown, 01/23/20) SULFAMETHOXAZOLE (Verified Allergy, Unknown, 01/23/20) TRIMETHOPRIM (Verified Allergy, Unknown, 01/23/20) Objective Last 24 Hour Vital Signs Date Time Temp Pulse Resp B/P (MAP) Pulse Ox O2 Delivery O2 Flow Rate FiO2 01/27/20 09:05 68 14 30 01/27/20 08:58 135/75 01/27/20 08:00 Mechanical Ventilator 01/27/20 08:00 98.9 52 15 135/75 (95) 97 01/27/20 08:00 30 01/27/20 07:12 64 14 30 01/27/20 05:30 62 18 30 01/27/20 04:00 67 01/27/20 04:00 30 01/27/20 04:00 Mechanical Ventilator 01/27/20 03:04 58 20 30 01/27/20 01:30 61 15 30 01/27/20 00:00 98.6 59 19 119/74 (89) 95 01/27/20 00:00 55 01/27/20 00:00 Mechanical Ventilator 01/26/20 23:30 60 17 30 01/26/20 21:03 49 17 30 01/26/20 20:13 133/75 01/26/20 20:00 97.9 58 20 133/75 (94) 96 01/26/20 20:00 60 01/26/20 20:00 30 01/26/20 20:00 Mechanical Ventilator 01/26/20 19:30 47 19 30 01/26/20 16:44 52 17 30 01/26/20 16:00 97.9 61 18 137/89 (105) 99 01/26/20 16:00 30 01/26/20 16:00 Mechanical Ventilator 01/26/20 16:00 49 01/26/20 15:31 49 01/26/20 15:02 56 17 30 01/26/20 13:01 51 14 30 01/26/20 12:00 60 01/26/20 12:00 Mechanical Ventilator 01/26/20 12:00 98.0 52 19 136/84 (101) 98 01/26/20 11:50 54 01/26/20 10:46 43 16 60 Intake and Output 01/26/20 01/27/20 19:00 07:00 Intake Total 1602.5 ml 505 ml Balance 1602.5 ml 505 ml Intake Oral 1000 ml IV Total 602.5 ml 505 ml # Voids 3 # Bowel Movements 2 Laboratory Tests 01/27/20 03:55: White Blood Count 9.7, Red Blood Count 4.25L, Hemoglobin 12.3L, Hematocrit 37.6L , Mean Corpuscular Volume 88, Mean Corpuscular Hemoglobin 29.0, Mean Corpuscular Hemoglobin Concent 32.8, Red Cell Distribution Width 13.7, Platelet Count 139L, Mean Platelet Volume 8.8, Neutrophils (%) (Auto) 66.3, Lymphocytes ( %) (Auto) 24.3, Monocytes (%) (Auto) 7.4, Eosinophils (%) (Auto) 1.1, Basophils (%) (Auto) 0.9, Sodium Level 143, Potassium Level 2.4*L, Chloride Level 100, Carbon Dioxide Level 38H, Anion Gap 4L, Blood Urea Nitrogen 24H, Creatinine 0.8 , Estimat Glomerular Filtration Rate > 60, Glucose Level 98, Calcium Level 8.7, Total Bilirubin 0.5, Aspartate Amino Transf (AST/SGOT) 42H, Alanine Aminotransferase (ALT/SGPT) 61, Alkaline Phosphatase 45L, Pro-B-Type Natriuretic Peptide 71, Total Protein 7.2, Albumin 2.8L, Globulin 4.4, Albumin/ Globulin Ratio 0.6L Height (Feet): 5 Height (Inches): 9.00 Weight (Pounds): 490 General Appearance: no apparent distress EENT: PERRL/EOMI Neck: supple Cardiovascular: normal peripheral pulses Respiratory/Chest: decreased breath sounds Abdomen: normal bowel sounds, non tender, soft Extremities: non-tender Mathew Singleton MD Jan 27, 2020 10:44
--- NOTE | 2020-01-27 10:46 | NUR ---
NURSE NOTES: MD Areli called, ordered K 40 mEq [address] Will place orders on behalf of .
--- NOTE | 2020-01-27 10:49 | Pulmonolgy Critical Care Note ---
Critical Care - Asmt/Plan Problems: (1) Acute on chronic respiratory failure (2) COPD (chronic obstructive pulmonary disease) (3) Pulmonary edema (4) Morbid obesity (5) Hx of seizure disorder Respiratory: monitor respiratory rate, adjust FIO2, CXR Cardiac: continue pressors, continue to monitor HR/BP Renal: F/U I&O, check electrolytes Infectious Disease: check cultures, continue antibiotics Gastrointestinal: hold feedings Endocrine: check TSH, check HgA1C, continue sliding scale insulin Hematologic: transfuse if hgb<8.5 Neurologic: PRN Morphine, keep patient comfortable Disposition: keep in ICU 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 Discussed with: nurses, consultants, piano case makerresidence manager - Objective Last 24 Hour Vital Signs Date Time Temp Pulse Resp B/P (MAP) Pulse Ox O2 Delivery O2 Flow Rate FiO2 01/27/20 09:05 68 14 30 01/27/20 08:58 135/75 01/27/20 08:00 Mechanical Ventilator 01/27/20 08:00 98.9 52 15 135/75 (95) 97 01/27/20 08:00 30 01/27/20 07:12 64 14 30 01/27/20 05:30 62 18 30 01/27/20 04:00 67 01/27/20 04:00 30 01/27/20 04:00 Mechanical Ventilator 01/27/20 03:04 58 20 30 01/27/20 01:30 61 15 30 01/27/20 00:00 98.6 59 19 119/74 (89) 95 01/27/20 00:00 55 01/27/20 00:00 Mechanical Ventilator 01/26/20 23:30 60 17 30 01/26/20 21:03 49 17 30 01/26/20 20:13 133/75 01/26/20 20:00 97.9 58 20 133/75 (94) 96 01/26/20 20:00 60 01/26/20 20:00 30 01/26/20 20:00 Mechanical Ventilator 01/26/20 19:30 47 19 30 01/26/20 16:44 52 17 30 01/26/20 16:00 97.9 61 18 137/89 (105) 99 01/26/20 16:00 30 01/26/20 16:00 Mechanical Ventilator 01/26/20 16:00 49 01/26/20 15:31 49 01/26/20 15:02 56 17 30 01/26/20 13:01 51 14 30 01/26/20 12:00 60 01/26/20 12:00 Mechanical Ventilator 01/26/20 12:00 98.0 52 19 136/84 (101) 98 01/26/20 11:50 54 01/26/20 10:46 43 16 60 Status: awake Condition: critical HEENT: atraumatic Neck: full ROM Heart: HR/BP stable, HR/BP unstable Abdomen: soft, active bowel sounds, feeding tube Extremities: no C/C/E Decubiti: location Micro: Microbiology Date/Time Source Procedure Growth Status 01/25/20 05:56 Sputum Induced Gram Stain - Final Complete 01/25/20 05:56 Sputum Induced Sputum Culture - Final NORMAL UPPER RESPIRATORY TEMO PRESENT Complete Critical Care - Subjective ROS Limited/Unobtainable: Yes Condition: critical EKG Rhythm: Sinus Rhythm FI02: 30 Vent Support Breath Rate: 14 Vent Support Mode: AC Vent Tidal Volume: 600 Sputum Amount: Small PEEP: 0.0 PIP: 27 I&O: Intake and Output 01/26/20 01/27/20 19:00 07:00 Intake Total 1602.5 ml 505 ml Balance 1602.5 ml 505 ml Intake Oral 1000 ml IV Total 602.5 ml 505 ml # Voids 3 # Bowel Movements 2 CXR: no changes Labs: Laboratory Tests Test 01/27/20 03:55 White Blood Count 9.7 K/UL (4.8-10.8) Red Blood Count 4.25 M/UL (4.70-6.10) L Hemoglobin 12.3 G/DL (14.2-18.0) L Hematocrit 37.6 % (42.0-52.0) L Mean Corpuscular Volume 88 FL (80-99) Mean Corpuscular Hemoglobin 29.0 PG (27.0-31.0) Mean Corpuscular Hemoglobin Concent 32.8 G/DL (32.0-36.0) Red Cell Distribution Width 13.7 % (11.6-14.8) Platelet Count 139 K/UL (150-450) L Mean Platelet Volume 8.8 FL (6.5-10.1) Neutrophils (%) (Auto) 66.3 % (45.0-75.0) Lymphocytes (%) (Auto) 24.3 % (20.0-45.0) Monocytes (%) (Auto) 7.4 % (1.0-10.0) Eosinophils (%) (Auto) 1.1 % (0.0-3.0) Basophils (%) (Auto) 0.9 % (0.0-2.0) Sodium Level 143 MMOL/L (136-145) Potassium Level 2.4 MMOL/L (3.5-5.1) *L Chloride Level 100 MMOL/L (98-107) Carbon Dioxide Level 38 MMOL/L (21-32) H Anion Gap 4 mmol/L (5-15) L Blood Urea Nitrogen 24 mg/dL (7-18) H Creatinine 0.8 MG/DL (0.55-1.30) Estimat Glomerular Filtration Rate > 60 mL/min (>60) Glucose Level 98 MG/DL (74-106) Calcium Level 8.7 MG/DL (8.5-10.1) Total Bilirubin 0.5 MG/DL (0.2-1.0) Aspartate Amino Transf (AST/SGOT) 42 U/L (15-37) H Alanine Aminotransferase (ALT/SGPT) 61 U/L (12-78) Alkaline Phosphatase 45 U/L (46-116) L Pro-B-Type Natriuretic Peptide 71 pg/mL (0-125) Total Protein 7.2 G/DL (6.4-8.2) Albumin 2.8 G/DL (3.4-5.0) L Globulin 4.4 g/dL Albumin/Globulin Ratio 0.6 (1.0-2.7) L Michael Lombardo MD Jan 27, 2020 10:49
--- NOTE | 2020-01-27 11:00 | Infectious Diseases Prog Note ---
Assessment/Plan Assessment/Plan ASSESSMENT: The patient is a 49-year-old male with: Low-grade fever. Status post leukocytosis. Aspiration pneumonia. History of seizure disorder. COPD. Bipolar disorder. Depression. Atrial fibrillation PLAN: cont pt on Levaquin and Flagyl day # 3/ Monitor CBC Monitor BMP. Monitor cultures (blood ) Monitor chest x-ray. Subjective Allergies: Coded Allergies: FISH DERIVED (Verified Allergy, Unknown, 01/23/20) PENICILLINS (Verified Allergy, Unknown, 01/23/20) SULFAMETHOXAZOLE (Verified Allergy, Unknown, 01/23/20) TRIMETHOPRIM (Verified Allergy, Unknown, 01/23/20) Subjective occasional cough comfortable afebrile Objective Vital Signs Last 24 Hour Vital Signs Date Time Temp Pulse Resp B/P (MAP) Pulse Ox O2 Delivery O2 Flow Rate FiO2 01/27/20 09:05 68 14 30 01/27/20 08:58 135/75 01/27/20 08:00 Mechanical Ventilator 01/27/20 08:00 98.9 52 15 135/75 (95) 97 01/27/20 08:00 30 01/27/20 07:12 64 14 30 01/27/20 05:30 62 18 30 01/27/20 04:00 67 01/27/20 04:00 30 01/27/20 04:00 Mechanical Ventilator 01/27/20 03:04 58 20 30 01/27/20 01:30 61 15 30 01/27/20 00:00 98.6 59 19 119/74 (89) 95 01/27/20 00:00 55 01/27/20 00:00 Mechanical Ventilator 01/26/20 23:30 60 17 30 01/26/20 21:03 49 17 30 01/26/20 20:13 133/75 01/26/20 20:00 97.9 58 20 133/75 (94) 96 01/26/20 20:00 60 01/26/20 20:00 30 01/26/20 20:00 Mechanical Ventilator 01/26/20 19:30 47 19 30 01/26/20 16:44 52 17 30 01/26/20 16:00 97.9 61 18 137/89 (105) 99 01/26/20 16:00 30 01/26/20 16:00 Mechanical Ventilator 01/26/20 16:00 49 01/26/20 15:31 49 3/3/20 15:02 56 17 30 01/26/20 13:01 51 14 30 01/26/20 12:00 60 01/26/20 12:00 Mechanical Ventilator 01/26/20 12:00 98.0 52 19 136/84 (101) 98 01/26/20 11:50 54 Height (Feet): 5 Height (Inches): 9.00 Weight (Pounds): 490 HEENT: anicteric Respiratory/Chest: no respiratory distress Cardiovascular: regularly irregular Abdomen: non distended Microbiology Date/Time Source Procedure Growth Status 01/25/20 05:56 Sputum Induced Gram Stain - Final Complete 01/25/20 05:56 Sputum Induced Sputum Culture - Final NORMAL UPPER RESPIRATORY TEMO PRESENT Complete Laboratory Tests Test 01/27/20 03:55 White Blood Count 9.7 K/UL (4.8-10.8) Red Blood Count 4.25 M/UL (4.70-6.10) L Hemoglobin 12.3 G/DL (14.2-18.0) L Hematocrit 37.6 % (42.0-52.0) L Mean Corpuscular Volume 88 FL (80-99) Mean Corpuscular Hemoglobin 29.0 PG (27.0-31.0) Mean Corpuscular Hemoglobin Concent 32.8 G/DL (32.0-36.0) Red Cell Distribution Width 13.7 % (11.6-14.8) Platelet Count 139 K/UL (150-450) L Mean Platelet Volume 8.8 FL (6.5-10.1) Neutrophils (%) (Auto) 66.3 % (45.0-75.0) Lymphocytes (%) (Auto) 24.3 % (20.0-45.0) Monocytes (%) (Auto) 7.4 % (1.0-10.0) Eosinophils (%) (Auto) 1.1 % (0.0-3.0) Basophils (%) (Auto) 0.9 % (0.0-2.0) Sodium Level 143 MMOL/L (136-145) Potassium Level 2.4 MMOL/L (3.5-5.1) *L Chloride Level 100 MMOL/L (98-107) Carbon Dioxide Level 38 MMOL/L (21-32) H Anion Gap 4 mmol/L (5-15) L Blood Urea Nitrogen 24 mg/dL (7-18) H Creatinine 0.8 MG/DL (0.55-1.30) Estimat Glomerular Filtration Rate > 60 mL/min (>60) Glucose Level 98 MG/DL (74-106) Calcium Level 8.7 MG/DL (8.5-10.1) Total Bilirubin 0.5 MG/DL (0.2-1.0) Aspartate Amino Transf (AST/SGOT) 42 U/L (15-37) H Alanine Aminotransferase (ALT/SGPT) 61 U/L (12-78) Alkaline Phosphatase 45 U/L (46-116) L Pro-B-Type Natriuretic Peptide 71 pg/mL (0-125) Total Protein 7.2 G/DL (6.4-8.2) Albumin 2.8 G/DL (3.4-5.0) L Globulin 4.4 g/dL Albumin/Globulin Ratio 0.6 (1.0-2.7) L Current Medications Medications (Trade) Dose Ordered Sig/Phuong Route PRN Reason Start Time Stop Time Status Last Admin Dose Admin Acetaminophen/ Hydrocodone Bitart (Cornucopia 10/325) 1 tab Q8H PRN ORAL For Pain 01/25/20 16:30 01/31/20 16:29 Albuterol/ Ipratropium (Albuterol/ Ipratropium) 3 ml Q4H PRN HHN Shortness of Breath 01/25/20 16:30 01/29/20 16:29 Aspirin (ASA) 81 mg DAILY ORAL 01/26/20 09:00 02/23/20 08:59 01/27/20 08:58 Atorvastatin Calcium (Lipitor) 10 mg BEDTIME ORAL 01/25/20 21:00 02/23/20 20:59 01/26/20 20:13 Barium Sulfate (Varibar Honey) 250 ml NOW PRN MC RAD 01/26/20 21:45 01/29/20 21:39 Barium Sulfate (Varibar Ramsay) 240 ml NOW PRN MC RAD 01/26/20 21:45 01/29/20 21:39 Barium Sulfate (Varibar Pudding) 230 ml NOW PRN MC RAD 01/26/20 21:45 01/29/20 21:39 Dextrose 1,000 ml @ 100 mls/hr Q10H IV 01/27/20 02:00 02/26/20 01:59 01/27/20 02:27 Enalapril Maleate (Vasotec) 5 mg EVERY 12 HOURS ORAL 01/25/20 21:00 02/23/20 08:59 01/27/20 08:58 Guaifenesin/ Dextromethorphan (Robitussin DM Syrup) 10 ml Q4H PRN ORAL For Cough 01/25/20 16:30 02/23/20 16:29 Heparin Sodium (Porcine) (Heparin 5000 units/ml) 5,000 units EVERY 12 HOURS SUBQ 01/25/20 21:00 02/23/20 20:59 01/27/20 08:59 Levetiracetam 750 mg/Dextrose 102.5 ml @ 440 mls/hr Q12H IV 01/26/20 00:00 02/23/20 11:59 01/27/20 00:21 Levofloxacin 150 ml @ 100 mls/hr Q24H IVPB 01/25/20 21:00 02/01/20 20:59 01/26/20 21:33 Lorazepam (Ativan 2mg/ml 1ml) 1 mg Q4H PRN IV For Anxiety 01/25/20 17:26 01/31/20 17:25 01/27/20 01:15 Metronidazole 100 ml @ 100 mls/hr Q8H IVPB 01/25/20 22:30 02/01/20 14:29 01/27/20 05:58 Morphine Sulfate (Morphine Sulfate) 4 mg Q4H PRN IVP For Pain 01/26/20 19:45 02/02/20 19:44 01/27/20 04:33 Ondansetron HCl (Zofran) 4 mg Q6H PRN IVP Nausea & Vomiting 01/25/20 17:26 02/23/20 17:25 Pantoprazole (Protonix) 40 mg DAILY IVP 01/26/20 09:00 02/23/20 15:59 01/27/20 08:59 Potassium Phosphate 20 mm/ Sodium Chloride 281.6667 ml @ 46.944 m... ONCE ONCE IV 01/27/20 09:00 01/27/20 14:59 01/27/20 09:51 Potassium Chloride (K-Dur) 40 meq ONCE ORAL 01/27/20 11:00 01/27/20 13:00 Theophylline (Austen-Dur) 100 mg BID ORAL 01/25/20 18:00 02/23/20 17:59 01/27/20 08:58 Trazodone HCl (Desyrel) 50 mg BEDTIME ORAL 01/25/20 21:00 02/23/20 20:59 01/26/20 20:13 Charles Snyder MD Jan 27, 2020 11:00
[2020-01-27 12:00] VITALS: BP 140/85
--- NOTE | 2020-01-27 14:00 | NUR ---
NURSE NOTES: PT AAOx3-4, cooperative and resistive to care at times, no S/S of respiratory distress noted, will continue to monitor PT.
[2020-01-27 16:00] VITALS: BP 144/78
--- NOTE | 2020-01-27 17:03 | NUR ---
NOTIFIED DR WEST RE: PT'S POSITIVE HEP C.
--- NOTE | 2020-01-27 18:58 | NUR ---
NURSE NOTES: Total linens changed, cleaned, dried will continue to monitor.
--- NOTE | 2020-01-27 19:24 | NUR ---
HAND-OFF: Report and PT given to EMETERIO Castillo. PT AAO x 3-4, no S/S of respiratory distress.
--- NOTE | 2020-01-27 19:57 | NUR ---
NURSE NOTES: Report received from EMETERIO Norris. Observed pt lying in the bed. C/O mattress note working properly, called central supply to check it. C/O back pain and noted prn med due in 30 mins and will be given. SR on panel monitor. On vent Shiley 8, AC 14, TV 600, TV 30, PEEP 0. external catheter bag noted around the galindo area. IV on R H 22G, running D5W at 100cc/hr. Bed in the lowest position. Side rails up x3. Will continue to monitor.
[2020-01-27] MEDS: TraZODone 50mg tab ORAL SCH (20:34)
[2020-01-28] VITALS: BP 127/71
--- NOTE | 2020-01-28 01:00 | NUR ---
NURSE NOTES: made round. New order received and will be carried out. Pt stable, no acute change noted at this time. Will continue to monitor.
--- NOTE | 2020-01-28 02:15 | Progress Note ---
DATE: 01/27/2020 CARDIOLOGY PROGRESS NOTE SUBJECTIVE: The patient is awake, alert, and in no distress. He is on ventilator support. OBJECTIVE: VITAL SIGNS: Blood pressure 124/71, pulse 87, respirations 19, and temperature 99. LUNGS: Bilateral breath sounds. Scattered rhonchi. Thin secretions from the endotracheal tube and trach site. HEART: Regular rhythm and rate. Normal S1, S2. ABDOMEN: Soft. EXTREMITIES: No edema. LABORATORY DATA: White count 9.7 and hemoglobin 12.3. Sodium 143, potassium 2.4, bicarb 38, BUN 24, and creatinine 0.8. Magnesium yesterday was 2.2. Albumin 2.8. IMPRESSION: 1. Respiratory failure. 2. Recovered sepsis with shock. 3. Acute myocardial ischemia recovered. 4. Chronic right-sided congestive heart failure. 5. Paroxysmal atrial fibrillation, on cardioembolic prophylaxis with anticoagulant. 6. Hypokalemia. PLAN: 1. Full anticoagulation. 2. Potassium replacement. 3. Recheck magnesium. 4. Antimicrobials. 5. Respiratory hygiene. Franky Stern M.D. DR: ADRIANE JOB#: [id number] CC:
--- NOTE | 2020-01-28 02:46 | NUR ---
NURSE NOTES: pt sleeping, calm and comfortable. SR with HR of 50s noted. No acute distress noted at this time. Will continue to monitor.
[2020-01-28] MEDS: Morphine Sulfate 4mg/ml Inj (IV USE ONLY) IVP PRN ×4 (03:07→20:30)
--- NOTE | 2020-01-28 04:28 | NUR ---
NURSE NOTES: V/S refused, risks and benefits explained and still refused. Bed bath refused at this time. SB on monitor and storage bin tender. Tolerating well with current vent setting. Will continue to monitor.
--- NOTE | 2020-01-28 07:27 | NUR ---
HAND-OFF: Report given to EMETERIO Yoon. No acute distress noted at this time.
--- NOTE | 2020-01-28 07:28 | NUR ---
NURSE NOTES: Received patient from Yasmany STORM. Patient is asleep, easily awoken by name. Patient is Sinus Rhythm on the heart monitor, HR 86. Receiving oxygen via trach to vent: Shiley 8, AC 14, TV 600, Fio2 30%, Patient's O2 saturation at 100%. IV site si right hand 22g patent and intact. Bed is locked, placed in lowest position, side rails up x3, bed alarm on, call light within reach, will continue to monitor. Addendum: 01/28/20 at 0817 by Reyes Monroy RN NURSE NOTES: Received patient from Yasmany STORM. Patient is asleep, easily awoken by name. Patient is Sinus Rhythm on the heart monitor, HR 86. Receiving oxygen via trach to vent: Shiley 8, AC 14, TV 600, Fio2 30%, Patient's O2 saturation at 100%. IV site si right hand 22g patent and intact. Patient is on Big Boy Bed, bed is locked, placed in lowest position, side rails up x3, call light within reach, will continue to monitor.
[2020-01-28 08:00] VITALS: BP 107/63
--- NOTE | 2020-01-28 08:45 | Progress Note ---
DATE: 01/27/2020 SUBJECTIVE: The patient is awake, alert, afebrile, hemodynamically stable, and is more energetic, more communicative and with normal bed mobility. PHYSICAL EXAMINATION: VITAL SIGNS: Blood pressure 124/71, his pulse is 54, respirations 23, and temperature 99. HEENT: Eyes were normal. ENT, mucous membranes were moist and intact. NECK: Supple with no JVD without lymph nodes. Tracheostomy site is clean. LUNGS: Clear without rhonchi, rales, or wheezing. HEART: Normal sounds with regular beat. ABDOMEN: Soft, obese, nontender with normal bowel sounds. Gastrostomy site is clean. EXTREMITIES: Warm without cyanosis, clubbing, or edema. LABORATORY AND DIAGNOSTIC DATA: His hemoglobin is 12.3, hematocrit 37.5, with MCV of 88, WBC of 9.7, and platelets 139,000. H and H were 11.5 and 35.2 yesterday. BUN and creatinine 24 and 0.8 respectively. Sodium is 143, potassium 3.4, chloride 100, and CO2 is 38. SGOT, SGPT, and alkaline phosphatase are normal. ProBNP was 71. His albumin is 2.8 and total protein is 7.2. No new chest x-ray was available at the time of this dictation. His previous chest x-ray revealed congestion but no infiltrate. IMPRESSION: The patient is markedly improved. He attempted to talk, he attempted to communicate. He 48 hours ago. . decubitus . Repeat laboratory tests will be done in a.m. Efren Herrera M.D. DR: Jaylin JOB#: [id number] CC:
[2020-01-28 08:47] LABS: ALANINE AMINOTRANSFERASE 64 U/L (12-78); ALBUMIN 2.7 G/DL (3.4-5.0); ALBUMIN/GLOBULIN RATIO 0.6 (1.0-2.7); ALKALINE PHOSPHATASE 45 U/L (46-116); ANION GAP 8 mmol/L (5-15); ASPARTATE AMINO TRANSFERASE 48 U/L (15-37); BILIRUBIN,TOTAL 0.5 MG/DL (0.2-1.0); BLOOD UREA NITROGEN 15 mg/dL (7-18); CALCIUM 8.7 MG/DL (8.5-10.1); CARBON DIOXIDE 32 MMOL/L (21-32); CHLORIDE 100 MMOL/L (98-107); CREATININE 0.8 MG/DL (0.55-1.30); PHOSPHORUS 4.8 MG/DL (2.5-4.9); POTASSIUM 2.8 MMOL/L (3.5-5.1); SODIUM 140 MMOL/L (136-145)
[2020-01-28 08:50] LABS: BASOPHILS % (AUTO) 0.7 % (0.0-2.0); EOSINOPHILS % (AUTO) 5.1 % (0.0-3.0); HEMATOCRIT 41.7 % (42.0-52.0); HEMOGLOBIN 13.8 G/DL (14.2-18.0); LYMPHOCYTES % (AUTO) 26.3 % (20.0-45.0); MEAN CORPUSCULAR VOLUME 88 FL (80-99); MONOCYTES % (AUTO) 7.4 % (1.0-10.0); NEUTROPHILS % (AUTO) 60.5 % (45.0-75.0); PLATELET COUNT 156 K/UL (150-450); RED BLOOD COUNT 4.71 M/UL (4.70-6.10); RED CELL DISTRIBUTION WIDTH 13.5 % (11.6-14.8); WHITE BLOOD COUNT 7.3 K/UL (4.8-10.8)
[2020-01-28] MEDS: Pantoprazole Inj IVP SCH (09:14)
[2020-01-28] MEDS: Enalapril 5mg tab ORAL SCH ×2 (09:15→20:32)
[2020-01-28] MEDS: Aspirin Baby 81mg ORAL SCH (09:15)
[2020-01-28] MEDS: Theophylline ER 100mg ORAL SCH ×2 (09:15→18:33)
[2020-01-28] MEDS: Heparin 5000 units/ml inj SUBQ SCH ×2 (09:17→20:26)
[2020-01-28] MEDS: LORazepam Inj 2mg/ml 1ml IV PRN ×2 (09:27→16:26)
--- NOTE | 2020-01-28 10:03 | NUR ---
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 * Morbidly obesity R/T life style factors? excessive energy intake? as evidenced by BMI >70. CURRENT DIET: Cardiac ms ground w/ thin liquids PO DIET RECOMMENDATIONS: WHEN SAFE FOR ORAL DIET -> Cardiac/ texture per [facility] NUTRITION RECOMMENDATIONS: Glucerna 1.5 @ 45ml/hr x 24 hrs + Prosource 1pkt TID to provide 1080ml, 1620kcal, 89g prot + 33g prot, 820ml free water * If TF indicated, obtain GI access, initiate Glucerna 1.5 @ 25m/hr x 6 hrs * Advance 10ml q 4-6 hrs as tolerated to goal rate * Add Prosource 1ptk TID to better meet prot needs * HOB over 30 degrees/ water flush per MD ADDITIONAL RECOMMENDATIONS: * Obtain calibrated bedscale wt as able, recalibrate on bid boy bed as able * Currently w/ fair intake, monitor po intake * Monitor for oral diet vs TF needs * Monitor BGs: BG 199 this AM, no h/o DM, A1C wnl * Wound care: add Vit C 250mg BID+MVI w/ min qd+ERWIN BID * Monitor lytes, replete as needed (K=2.8) * Rec WC eval for wound photos @ sacrum and BL elbows
--- NOTE | 2020-01-28 10:46 | General Progress Note ---
Assessment/Plan Assessment/Plan: 1. History of morbid obesity. 2. Hypertension. 3. Chronic respiratory failure with a trach. 4. Psychiatric disorder. 5. Intermittent atrial fibrillation. 6. Anemia 7. ? GIB ppi stable H&H no obvious GIB eating well replace K Subjective ROS Limited/Unobtainable: Yes Allergies: Coded Allergies: FISH DERIVED (Verified Allergy, Unknown, 01/23/20) PENICILLINS (Verified Allergy, Unknown, 01/23/20) SULFAMETHOXAZOLE (Verified Allergy, Unknown, 01/23/20) TRIMETHOPRIM (Verified Allergy, Unknown, 01/23/20) Objective Last 24 Hour Vital Signs Date Time Temp Pulse Resp B/P (MAP) Pulse Ox O2 Delivery O2 Flow Rate FiO2 01/28/20 09:15 107/63 01/28/20 09:12 72 14 30 01/28/20 08:01 63 01/28/20 08:00 Mechanical Ventilator 01/28/20 08:00 98.6 54 14 107/63 (78) 99 01/28/20 08:00 30 01/28/20 07:16 68 18 30 01/28/20 05:02 85 18 30 01/28/20 04:00 81 01/28/20 04:00 Mechanical Ventilator 01/28/20 04:00 30 01/28/20 03:09 88 15 30 01/28/20 01:01 87 14 30 01/28/20 00:00 98.1 55 20 127/71 (89) 97 01/28/20 00:00 Mechanical Ventilator 01/27/20 23:01 84 19 30 01/27/20 21:14 87 19 30 01/27/20 20:36 124/71 01/27/20 20:00 78 01/27/20 20:00 30 01/27/20 20:00 Mechanical Ventilator 01/27/20 19:10 84 23 30 01/27/20 17:26 86 14 30 01/27/20 17:03 99.0 01/27/20 16:00 30 01/27/20 16:00 57 01/27/20 16:00 98.3 66 20 144/78 (100) 96 01/27/20 16:00 Mechanical Ventilator 01/27/20 15:16 62 18 30 01/27/20 13:04 57 18 30 01/27/20 12:00 30 01/27/20 12:00 99.0 56 15 140/85 (103) 96 01/27/20 12:00 Mechanical Ventilator 01/27/20 11:35 54 01/27/20 11:24 61 21 30 Intake and Output 01/27/20 01/28/20 19:00 07:00 Intake Total 1684.220 ml 352.5 ml Balance 1684.220 ml 352.5 ml IV Total 1684.220 ml 352.5 ml # Voids 1 1 # Bowel Movements 2 Laboratory Tests 01/28/20 04:00: Arterial Blood pH 7.449, Arterial Blood Partial Pressure CO2 54.6H, Arterial Blood Partial Pressure O2 83.6, Arterial Blood HCO3 37.0H, Arterial Blood Oxygen Saturation 96.1, Arterial Blood Base Excess 10.9*H, Alex Test Positive 01/28/20 07:55: White Blood Count 7.3, Red Blood Count 4.71, Hemoglobin 13.8L, Hematocrit 41.7L , Mean Corpuscular Volume 88, Mean Corpuscular Hemoglobin 29.4, Mean Corpuscular Hemoglobin Concent 33.2, Red Cell Distribution Width 13.5, Platelet Count 156, Mean Platelet Volume 8.6, Neutrophils (%) (Auto) 60.5, Lymphocytes (% ) (Auto) 26.3, Monocytes (%) (Auto) 7.4, Eosinophils (%) (Auto) 5.1H, Basophils (%) (Auto) 0.7, Sodium Level 140, Potassium Level 2.8L, Chloride Level 100, Carbon Dioxide Level 32, Anion Gap 8, Blood Urea Nitrogen 15, Creatinine 0.8, Estimat Glomerular Filtration Rate > 60, Glucose Level 106, Calcium Level 8.7, Phosphorus Level 4.8, Magnesium Level 1.8, Total Bilirubin 0.5, Aspartate Amino Transf (AST/SGOT) 48H, Alanine Aminotransferase (ALT/SGPT) 64, Alkaline Phosphatase 45L, Total Protein 7.3, Albumin 2.7L, Globulin 4.6, Albumin/ Globulin Ratio 0.6L Height (Feet): 5 Height (Inches): 9.00 Weight (Pounds): 490 General Appearance: alert EENT: normal ENT inspection Neck: supple Cardiovascular: normal rate Respiratory/Chest: decreased breath sounds Abdomen: normal bowel sounds, non tender, soft Extremities: non-tender Mathew Singleton MD Jan 28, 2020 10:45
--- NOTE | 2020-01-28 11:39 | Pulmonolgy Critical Care Note ---
Critical Care - Asmt/Plan Problems: (1) Acute on chronic respiratory failure (2) Nosocomial pneumonia (3) COPD (chronic obstructive pulmonary disease) (4) Pulmonary edema (5) Morbid obesity (6) Hx of seizure disorder Respiratory: monitor respiratory rate, adjust FIO2, CXR Cardiac: continue to monitor HR/BP Renal: F/U I&O, keep IV fluid, check electrolytes Infectious Disease: check cultures Gastrointestinal: continue feedings/current rate, other - pt is too large for CT Endocrine: monitor blood sugar Hematologic: monitor H/H, transfuse if hgb<8.5 Neurologic: PRN Ativan, keep patient comfortable Affect: PRN ativan Prophylaxis: Protonix, Heparin Time Spent (Minutes): 40 Notes Reviewed: immigration coordinator, cardio Discussed with: nurses, consultants, nurse case managermanager strategic alliances - Objective Last 24 Hour Vital Signs Date Time Temp Pulse Resp B/P (MAP) Pulse Ox O2 Delivery O2 Flow Rate FiO2 01/28/20 11:07 78 14 30 01/28/20 09:15 107/63 01/28/20 09:12 72 14 30 01/28/20 08:01 63 01/28/20 08:00 Mechanical Ventilator 01/28/20 08:00 98.6 54 14 107/63 (78) 99 01/28/20 08:00 30 01/28/20 07:16 68 18 30 01/28/20 05:02 85 18 30 01/28/20 04:00 81 01/28/20 04:00 Mechanical Ventilator 01/28/20 04:00 30 01/28/20 03:09 88 15 30 01/28/20 01:01 87 14 30 01/28/20 00:00 98.1 55 20 127/71 (89) 97 01/28/20 00:00 Mechanical Ventilator 01/27/20 23:01 84 19 30 01/27/20 21:14 87 19 30 01/27/20 20:36 124/71 01/27/20 20:00 78 01/27/20 20:00 30 01/27/20 20:00 Mechanical Ventilator 01/27/20 19:10 84 23 30 01/27/20 17:26 86 14 30 01/27/20 17:03 99.0 01/27/20 16:00 30 01/27/20 16:00 57 3/4/20 16:00 98.3 66 20 144/78 (100) 96 01/27/20 16:00 Mechanical Ventilator 01/27/20 15:16 62 18 30 01/27/20 13:04 57 18 30 01/27/20 12:00 30 01/27/20 12:00 99.0 56 15 140/85 (103) 96 01/27/20 12:00 Mechanical Ventilator Status: awake Condition: critical, improving HEENT: atraumatic Lungs: rales, rhonchi Heart: HR/BP stable Abdomen: non-tender, feeding tube Extremities: edema Decubiti: location Critical Care - Subjective ROS Limited/Unobtainable: No Condition: critical EKG Rhythm: Sinus Rhythm FI02: 30 Vent Support Breath Rate: 14 Vent Support Mode: AC Vent Tidal Volume: 600 Sputum Amount: Small PEEP: 0.0 PIP: 26 I&O: Intake and Output 01/27/20 01/28/20 19:00 07:00 Intake Total 1684.220 ml 352.5 ml Balance 1684.220 ml 352.5 ml IV Total 1684.220 ml 352.5 ml # Voids 1 1 # Bowel Movements 2 CXR: no new changes Labs: Laboratory Tests Test 01/28/20 04:00 01/28/20 07:55 Arterial Blood pH 7.449 (7.350-7.450) Arterial Blood Partial Pressure CO2 54.6 mmHg (35.0-45.0) H Arterial Blood Partial Pressure O2 83.6 mmHg (75.0-100.0) Arterial Blood HCO3 37.0 mmol/L (22.0-26.0) H Arterial Blood Oxygen Saturation 96.1 % (95-100) Arterial Blood Base Excess 10.9 (-2-2) *H Alex Test Positive White Blood Count 7.3 K/UL (4.8-10.8) Red Blood Count 4.71 M/UL (4.70-6.10) Hemoglobin 13.8 G/DL (14.2-18.0) L Hematocrit 41.7 % (42.0-52.0) L Mean Corpuscular Volume 88 FL (80-99) Mean Corpuscular Hemoglobin 29.4 PG (27.0-31.0) Mean Corpuscular Hemoglobin Concent 33.2 G/DL (32.0-36.0) Red Cell Distribution Width 13.5 % (11.6-14.8) Platelet Count 156 K/UL (150-450) Mean Platelet Volume 8.6 FL (6.5-10.1) Neutrophils (%) (Auto) 60.5 % (45.0-75.0) Lymphocytes (%) (Auto) 26.3 % (20.0-45.0) Monocytes (%) (Auto) 7.4 % (1.0-10.0) Eosinophils (%) (Auto) 5.1 % (0.0-3.0) H Basophils (%) (Auto) 0.7 % (0.0-2.0) Sodium Level 140 MMOL/L (136-145) Potassium Level 2.8 MMOL/L (3.5-5.1) L Chloride Level 100 MMOL/L (98-107) Carbon Dioxide Level 32 MMOL/L (21-32) Anion Gap 8 mmol/L (5-15) Blood Urea Nitrogen 15 mg/dL (7-18) Creatinine 0.8 MG/DL (0.55-1.30) Estimat Glomerular Filtration Rate > 60 mL/min (>60) Glucose Level 106 MG/DL (74-106) Calcium Level 8.7 MG/DL (8.5-10.1) Phosphorus Level 4.8 MG/DL (2.5-4.9) Magnesium Level 1.8 MG/DL (1.8-2.4) Total Bilirubin 0.5 MG/DL (0.2-1.0) Aspartate Amino Transf (AST/SGOT) 48 U/L (15-37) H Alanine Aminotransferase (ALT/SGPT) 64 U/L (12-78) Alkaline Phosphatase 45 U/L (46-116) L Total Protein 7.3 G/DL (6.4-8.2) Albumin 2.7 G/DL (3.4-5.0) L Globulin 4.6 g/dL Albumin/Globulin Ratio 0.6 (1.0-2.7) L Michael Lombardo MD Jan 28, 2020 11:38
[2020-01-28 12:00] VITALS: BP 126/66
[2020-01-28] MEDS: levETIRAcetam 750 MG in D5W 95 ML IV SCH (12:00)
--- NOTE | 2020-01-28 13:21 | NUR ---
RADIOLOGY DEPT., CHEST X-RAY DONE.-P.DYE
--- NOTE | 2020-01-28 13:39 | Diagnostic Imaging Report ---
Indication: Dyspnea Comparison: 01/26/2020 A single view chest radiograph was obtained. Findings: Pulmonary vascularity is prominent. Mild interstitial opacities also noted. Heart is mildly enlarged. Tracheostomy noted. IMPRESSION: Pulmonary vascular congestion. No change
[2020-01-28 16:00] VITALS: BP 117/69
--- NOTE | 2020-01-28 16:32 | Infectious Diseases Prog Note ---
Assessment/Plan Assessment/Plan ASSESSMENT: The patient is a 49-year-old male with: Low-grade fever, sp Leukocytosis., sp Aspiration pneumonia - SC: nl krzysztof History of seizure disorder. COPD. Bipolar disorder. Depression. Atrial fibrillation PLAN: cont pt on Levaquin and Flagyl day # 5/7 Monitor CBC Monitor BMP. Monitor cultures (blood ) Monitor chest x-ray. Subjective Allergies: Coded Allergies: FISH DERIVED (Verified Allergy, Unknown, 01/23/20) PENICILLINS (Verified Allergy, Unknown, 01/23/20) SULFAMETHOXAZOLE (Verified Allergy, Unknown, 01/23/20) TRIMETHOPRIM (Verified Allergy, Unknown, 01/23/20) Subjective comfortable afebrile Objective Vital Signs Last 24 Hour Vital Signs Date Time Temp Pulse Resp B/P (MAP) Pulse Ox O2 Delivery O2 Flow Rate FiO2 01/28/20 14:30 75 17 30 01/28/20 13:05 83 18 30 01/28/20 12:00 99.1 66 17 126/66 (86) 99 01/28/20 12:00 30 01/28/20 12:00 Mechanical Ventilator 01/28/20 11:35 62 01/28/20 11:07 78 14 30 01/28/20 09:15 107/63 01/28/20 09:12 72 14 30 01/28/20 08:01 63 01/28/20 08:00 Mechanical Ventilator 01/28/20 08:00 98.6 54 14 107/63 (78) 99 01/28/20 08:00 30 01/28/20 07:16 68 18 30 01/28/20 05:02 85 18 30 01/28/20 04:00 81 01/28/20 04:00 Mechanical Ventilator 01/28/20 04:00 30 01/28/20 03:09 88 15 30 01/28/20 01:01 87 14 30 01/28/20 00:00 98.1 55 20 127/71 (89) 97 01/28/20 00:00 Mechanical Ventilator 01/27/20 23:01 84 19 30 01/27/20 21:14 87 19 30 01/27/20 20:36 124/71 01/27/20 20:00 78 01/27/20 20:00 30 01/27/20 20:00 Mechanical Ventilator 01/27/20 19:10 84 23 30 01/27/20 17:26 86 14 30 01/27/20 17:03 99.0 Height (Feet): 5 Height (Inches): 9.00 Weight (Pounds): 490 HEENT: anicteric Respiratory/Chest: no accessory muscle use Cardiovascular: normal rate Abdomen: no organomegaly Laboratory Tests Test 01/28/20 04:00 01/28/20 07:55 Arterial Blood pH 7.449 (7.350-7.450) Arterial Blood Partial Pressure CO2 54.6 mmHg (35.0-45.0) H Arterial Blood Partial Pressure O2 83.6 mmHg (75.0-100.0) Arterial Blood HCO3 37.0 mmol/L (22.0-26.0) H Arterial Blood Oxygen Saturation 96.1 % (95-100) Arterial Blood Base Excess 10.9 (-2-2) *H Alex Test Positive White Blood Count 7.3 K/UL (4.8-10.8) Red Blood Count 4.71 M/UL (4.70-6.10) Hemoglobin 13.8 G/DL (14.2-18.0) L Hematocrit 41.7 % (42.0-52.0) L Mean Corpuscular Volume 88 FL (80-99) Mean Corpuscular Hemoglobin 29.4 PG (27.0-31.0) Mean Corpuscular Hemoglobin Concent 33.2 G/DL (32.0-36.0) Red Cell Distribution Width 13.5 % (11.6-14.8) Platelet Count 156 K/UL (150-450) Mean Platelet Volume 8.6 FL (6.5-10.1) Neutrophils (%) (Auto) 60.5 % (45.0-75.0) Lymphocytes (%) (Auto) 26.3 % (20.0-45.0) Monocytes (%) (Auto) 7.4 % (1.0-10.0) Eosinophils (%) (Auto) 5.1 % (0.0-3.0) H Basophils (%) (Auto) 0.7 % (0.0-2.0) Sodium Level 140 MMOL/L (136-145) Potassium Level 2.8 MMOL/L (3.5-5.1) L Chloride Level 100 MMOL/L (98-107) Carbon Dioxide Level 32 MMOL/L (21-32) Anion Gap 8 mmol/L (5-15) Blood Urea Nitrogen 15 mg/dL (7-18) Creatinine 0.8 MG/DL (0.55-1.30) Estimat Glomerular Filtration Rate > 60 mL/min (>60) Glucose Level 106 MG/DL (74-106) Calcium Level 8.7 MG/DL (8.5-10.1) Phosphorus Level 4.8 MG/DL (2.5-4.9) Magnesium Level 1.8 MG/DL (1.8-2.4) Total Bilirubin 0.5 MG/DL (0.2-1.0) Aspartate Amino Transf (AST/SGOT) 48 U/L (15-37) H Alanine Aminotransferase (ALT/SGPT) 64 U/L (12-78) Alkaline Phosphatase 45 U/L (46-116) L Total Protein 7.3 G/DL (6.4-8.2) Albumin 2.7 G/DL (3.4-5.0) L Globulin 4.6 g/dL Albumin/Globulin Ratio 0.6 (1.0-2.7) L Current Medications Medications (Trade) Dose Ordered Sig/Phuong Route PRN Reason Start Time Stop Time Status Last Admin Dose Admin Acetaminophen/ Hydrocodone Bitart ([place] 10/325) 1 tab Q8H PRN ORAL For Pain 01/25/20 16:30 01/31/20 16:29 Albuterol/ Ipratropium (Albuterol/ Ipratropium) 3 ml Q4H PRN HHN Shortness of Breath 01/25/20 16:30 01/29/20 16:29 Aspirin (ASA) 81 mg DAILY ORAL 01/26/20 09:00 02/23/20 08:59 01/28/20 09:15 Atorvastatin Calcium (Lipitor) 10 mg BEDTIME ORAL 01/25/20 21:00 02/23/20 20:59 01/27/20 20:34 Barium Sulfate (Varibar Honey) 250 ml NOW PRN MC RAD 01/26/20 21:45 01/29/20 21:39 Barium Sulfate (Varibar [place]) 240 ml NOW PRN MC RAD 01/26/20 21:45 01/29/20 21:39 Barium Sulfate (Varibar Pudding) 230 ml NOW PRN MC RAD 01/26/20 21:45 01/29/20 21:39 Enalapril Maleate (Vasotec) 5 mg EVERY 12 HOURS ORAL 01/25/20 21:00 02/23/20 08:59 01/28/20 09:15 Guaifenesin/ Dextromethorphan (Robitussin DM Syrup) 10 ml Q4H PRN ORAL For Cough 01/25/20 16:30 02/23/20 16:29 Heparin Sodium (Porcine) (Heparin 5000 units/ml) 5,000 units EVERY 12 HOURS SUBQ 01/25/20 21:00 02/23/20 20:59 01/28/20 09:17 Levetiracetam 750 mg/Dextrose 102.5 ml @ 440 mls/hr Q12H IV 01/26/20 00:00 02/23/20 11:59 01/28/20 12:00 Levofloxacin 150 ml @ 100 mls/hr Q24H IVPB 01/25/20 21:00 02/01/20 20:59 01/27/20 22:02 Lorazepam (Ativan 2mg/ml 1ml) 1 mg Q4H PRN IV For Anxiety 01/25/20 17:26 01/31/20 17:25 01/28/20 16:26 Metronidazole 100 ml @ 100 mls/hr Q8H IVPB 01/25/20 22:30 02/01/20 14:29 01/28/20 14:51 Morphine Sulfate (Morphine Sulfate) 4 mg Q4H PRN IVP For Pain 01/26/20 19:45 02/02/20 19:44 01/28/20 13:27 Ondansetron HCl (Zofran) 4 mg Q6H PRN IVP Nausea & Vomiting 01/25/20 17:26 02/23/20 17:25 Pantoprazole (Protonix) 40 mg DAILY IVP 01/26/20 09:00 02/23/20 15:59 01/28/20 09:14 Potassium Chloride (K-Dur) 40 meq Q4H ORAL 01/28/20 14:30 01/28/20 18:31 01/28/20 14:52 Theophylline ([place]-Dur) 100 mg BID ORAL 01/25/20 18:00 02/23/20 17:59 01/28/20 09:15 Trazodone HCl (Desyrel) 50 mg BEDTIME ORAL 01/25/20 21:00 02/23/20 20:59 01/27/20 20:34 Chrales Snyder MD Jan 28, 2020 16:32
--- NOTE | 2020-01-28 16:57 | NUR ---
SWALLOW/SPEECH THERAPY NOTE: UNABLE TO SEE DUE TO SCHEDULE CONFLICT. PLAN: F/UP WITH PM SPEAKING VALVE EVALUATION AND SWALLOW SKILLS TOMORROW
--- NOTE | 2020-01-28 19:10 | NUR ---
NURSE NOTES: Pt received from [facility] RN. pt remains stable. pt is alert and oriented times 3, able to follow commands. pt is on bus driver/monitor showing NSR no distress noted cardiac ornelas. pt is on trach to vent, satting at 99%, no resp distress noted. pt bed is low, locked, armed, bed rails up times 3, call light within reach. will follow plan of care.
--- NOTE | 2020-01-28 19:26 | NUR ---
HAND-OFF: Report given to Mani STORM.
[2020-01-28 20:00] VITALS: BP 118/63
[2020-01-28] MEDS: TraZODone 50mg tab ORAL SCH (20:31)
--- NOTE | 2020-01-28 20:32 | NUR ---
NURSE NOTES: Spoke to REJI pharmacist, asked if it is ok to give LEVOFLOXACIN 750MG IV. she stated it is ok to give.
--- NOTE | 2020-01-28 23:15 | Progress Note ---
DATE: 01/28/2020 SUBJECTIVE: The patient is awake, alert, afebrile, hemodynamically stable. He is more active and made substantially more body movements in the last few days. His improvement has been noticed already yesterday. PHYSICAL EXAMINATION: VITAL SIGNS: Blood pressure 117/69, pulse is 68, respirations are 75, temperature 98.8. HEENT: Eyes were normal. ENT, mucous membranes were moist and intact. NECK: Supple with no JVD without lymph nodes. Tracheostomy site is clean. LUNGS: Clear without rhonchi, rales, or wheezing. HEART: Normal sounds with regular beats. There is no tachycardia at rest. ABDOMEN: Soft, obese, and nontender with normal bowel sounds. EXTREMITIES: Warm without cyanosis, clubbing, or edema. LABORATORY AND DIAGNOSTIC DATA: Hemoglobin is 13.8, hematocrit 41.7, with an MCV of 88, WBC of 7.3, and platelets 156. His BUN and creatinine are 15 and 0.8 respectively. His sodium is 140, potassium 2.8, chloride 100, CO2 is 32. The patient is already on 40 mEq q.4 h. Chest x-ray done today revealed pulmonary vascular congestion with no change in cardiomegaly. Sputum culture grew normal upper respiratory krzysztof. Because of his congestive heart failure, the patient does not appear to be ready to be discharged. In addition, the patient requested to be transferred to another facility. Repeat laboratory tests will be done in the a.m. Efren Herrera M.D. DR: RAMSES JOB#: [id number] CC:
--- NOTE | 2020-01-28 23:45 | Progress Note ---
DATE: 01/28/2020 CARDIOLOGY PROGRESS NOTE SUBJECTIVE: The patient remains on ventilator support. Low-grade fevers noted. Monitored rhythm, sinus. OBJECTIVE: VITAL SIGNS: Blood pressure 126/66, pulse 66, respirations 17, and temperature 99.1. LUNGS: Bilateral breath sounds. Few rhonchi. Thin trach secretions. CARDIAC: Regular rhythm and rate. Normal S1, S2. ABDOMEN: Soft. EXTREMITIES: Trace edema. LABORATORY DATA: White count 7.3, hemoglobin 13.8. Sodium 140, potassium 2.8, bicarb 22, BUN 15, creatinine 0.8. Magnesium 1.8. Albumin is 2.7. ABG 7.45, 55, 83. IMPRESSION: 1. Metabolic alkalosis. 2. Respiratory failure. 3. Hypokalemia. 4. Recovered sepsis and shock. 5. Acute myocardial ischemia, resolved. 6. Chronic congestive heart failure mostly right-sided. 7. Paroxysmal atrial fibrillation, on cardioembolic prophylaxis. PLAN: 1. Antimicrobials. 2. Ventilator support. 3. Weaning efforts. 4. Replace potassium. 5. Recheck magnesium. 6. Diuresis based on clinical parameters. Franky Stern M.D. DR: SMITA JOB#: [id number] CC:
[2020-01-29] VITALS: BP 124/68
[2020-01-29] MEDS: levETIRAcetam 750 MG in D5W 95 ML IV SCH ×2 (00:10→11:32)
[2020-01-29] MEDS: Morphine Sulfate 4mg/ml Inj (IV USE ONLY) IVP PRN ×3 (01:13→09:37)
[2020-01-29] MEDS: LORazepam Inj 2mg/ml 1ml IV PRN ×4 (02:05→18:51)
--- NOTE | 2020-01-29 03:32 | NUR ---
NURSE NOTES: Pt refused AM LABS drawn (0400). pt agreed to have labs done at 0700.
[2020-01-29 04:00] VITALS: BP 152/66
--- NOTE | 2020-01-29 06:30 | NUR ---
NURSE NOTES: Pt yet again refused AM LABS. pt became agitated when Nurse asked again. pt stated to have LABS drawn at noon / 1200.
--- NOTE | 2020-01-29 07:21 | NUR ---
HAND-OFF: Report given to SCOTT Bautista day shift RN. Pt remains stable.
--- NOTE | 2020-01-29 07:23 | NUR ---
NURSE NOTES: Received report from EMETERIO Salazar. Patient is resting in bed, in stable condition. No s/sx of SOB, breathing is even and unlabored, vent settings are as ordered. Denies any presence of pain or discomfort at this time. Refused breakfast. Refuses CBC and BMP lab draws at this time. RT at bedside, informed RT to notify my when deflating cuff so patient can eat, RT acknowledged. Bed is in lowest position, brakes engaged. Call light is kept within easy reach. Will continue to monitor patient.
[2020-01-29 08:00] VITALS: BP 114/71
[2020-01-29] MEDS: Heparin 5000 units/ml inj SUBQ SCH ×2 (09:00→21:59)
--- NOTE | 2020-01-29 09:27 | Infectious Diseases Prog Note ---
Assessment/Plan Assessment/Plan ASSESSMENT: The patient is a 49-year-old male with: Low-grade fever, sp Leukocytosis., sp Aspiration pneumonia - SC: nl krzysztof History of seizure disorder. COPD. Bipolar disorder. Depression. Atrial fibrillation PLAN: cont pt on Levaquin and Flagyl day # 6/7 Monitor CBC Monitor BMP. Monitor cultures (blood ) Monitor chest x-ray. Subjective Allergies: Coded Allergies: FISH DERIVED (Verified Allergy, Unknown, 01/23/20) PENICILLINS (Verified Allergy, Unknown, 01/23/20) SULFAMETHOXAZOLE (Verified Allergy, Unknown, 01/23/20) TRIMETHOPRIM (Verified Allergy, Unknown, 01/23/20) Subjective comfortable afebrile Objective Vital Signs Last 24 Hour Vital Signs Date Time Temp Pulse Resp B/P (MAP) Pulse Ox O2 Delivery O2 Flow Rate FiO2 01/29/20 09:23 64 15 30 01/29/20 08:59 30 01/29/20 08:00 81 01/29/20 08:00 98.2 66 21 114/71 (85) 99 01/29/20 08:00 Mechanical Ventilator 01/29/20 07:15 63 17 30 01/29/20 04:34 58 1 30 01/29/20 04:00 Mechanical Ventilator 01/29/20 04:00 30 01/29/20 04:00 78 01/29/20 04:00 98.2 63 21 152/66 (94) 98 01/29/20 03:08 62 18 30 01/29/20 00:37 86 17 30 01/29/20 00:00 98.9 63 21 124/68 (86) 99 01/29/20 00:00 30 01/29/20 00:00 Mechanical Ventilator 01/29/20 00:00 64 01/28/20 23:27 86 17 30 01/28/20 21:10 83 17 30 01/28/20 20:32 126/76 01/28/20 20:00 30 01/28/20 20:00 Mechanical Ventilator 01/28/20 20:00 98.2 66 20 118/63 (81) 99 01/28/20 20:00 74 01/28/20 19:06 84 17 30 01/28/20 16:58 81 19 30 01/28/20 16:00 30 01/28/20 16:00 98.8 68 20 117/69 (85) 98 01/28/20 16:00 Mechanical Ventilator 01/28/20 15:15 75 01/28/20 14:30 75 17 30 01/28/20 13:05 83 18 30 01/28/20 12:00 99.1 66 17 126/66 (86) 99 01/28/20 12:00 30 01/28/20 12:00 Mechanical Ventilator 01/28/20 11:35 62 01/28/20 11:07 78 14 30 Height (Feet): 5 Height (Inches): 9.00 Weight (Pounds): 490 HEENT: anicteric Respiratory/Chest: no respiratory distress Cardiovascular: regular rhythm Abdomen: no organomegaly Current Medications Medications (Trade) Dose Ordered Sig/Phuong Route PRN Reason Start Time Stop Time Status Last Admin Dose Admin Acetaminophen/ Hydrocodone Bitart ([place] 10/325) 1 tab Q8H PRN ORAL For Pain 01/25/20 16:30 01/31/20 16:29 Albuterol/ Ipratropium (Albuterol/ Ipratropium) 3 ml Q4H PRN HHN Shortness of Breath 01/25/20 16:30 01/29/20 16:29 Aspirin (ASA) 81 mg DAILY ORAL 01/26/20 09:00 02/23/20 08:59 01/28/20 09:15 Atorvastatin Calcium (Lipitor) 10 mg BEDTIME ORAL 01/25/20 21:00 02/23/20 20:59 01/28/20 20:32 Barium Sulfate (Varibar Honey) 250 ml NOW PRN MC RAD 01/26/20 21:45 01/29/20 21:39 Barium Sulfate (Varibar [place]) 240 ml NOW PRN MC RAD 01/26/20 21:45 01/29/20 21:39 Barium Sulfate (Varibar Pudding) 230 ml NOW PRN MC RAD 01/26/20 21:45 01/29/20 21:39 Enalapril Maleate (Vasotec) 5 mg EVERY 12 HOURS ORAL 01/25/20 21:00 02/23/20 08:59 01/28/20 20:32 Guaifenesin/ Dextromethorphan (Robitussin DM Syrup) 10 ml Q4H PRN ORAL For Cough 01/25/20 16:30 02/23/20 16:29 Heparin Sodium (Porcine) (Heparin 5000 units/ml) 5,000 units EVERY 12 HOURS SUBQ 01/25/20 21:00 02/23/20 20:59 01/28/20 20:26 Levetiracetam 750 mg/Dextrose 102.5 ml @ 440 mls/hr Q12H IV 01/26/20 00:00 02/23/20 11:59 01/29/20 00:10 Levofloxacin 150 ml @ 100 mls/hr Q24H IVPB 01/25/20 21:00 02/01/20 20:59 01/28/20 20:31 Lorazepam (Ativan 2mg/ml 1ml) 1 mg Q4H PRN IV For Anxiety 01/25/20 17:26 01/31/20 17:25 01/29/20 08:08 Metronidazole 100 ml @ 100 mls/hr Q8H IVPB 01/25/20 22:30 02/01/20 14:29 01/29/20 05:39 Morphine Sulfate (Morphine Sulfate) 4 mg Q4H PRN IVP For Pain 01/26/20 19:45 02/02/20 19:44 01/29/20 05:15 Ondansetron HCl (Zofran) 4 mg Q6H PRN IVP Nausea & Vomiting 01/25/20 17:26 02/23/20 17:25 Pantoprazole (Protonix) 40 mg DAILY IVP 01/26/20 09:00 02/23/20 15:59 01/28/20 09:14 Theophylline ([place]-Dur) 100 mg BID ORAL 01/25/20 18:00 02/23/20 17:59 01/28/20 18:33 Trazodone HCl (Desyrel) 50 mg BEDTIME ORAL 01/25/20 21:00 02/23/20 20:59 01/28/20 20:31 Charles Snyder MD Jan 29, 2020 09:27
[2020-01-29] MEDS: Pantoprazole Inj IVP SCH (09:36)
[2020-01-29] MEDS: Aspirin Baby 81mg ORAL SCH (09:36)
[2020-01-29] MEDS: Theophylline ER 100mg ORAL SCH ×2 (09:36→17:44)
[2020-01-29] MEDS: Enalapril 5mg tab ORAL SCH ×2 (09:37→21:54)
--- NOTE | 2020-01-29 10:05 | NUR ---
NURSE NOTES: Offered to turn patient with LTA, Agustine, patient refused. Noted. Will continue to monitor.
--- NOTE | 2020-01-29 10:33 | Pulmonolgy Critical Care Note ---
Critical Care - Asmt/Plan Problems: (1) Acute on chronic respiratory failure (2) Nosocomial pneumonia (3) COPD (chronic obstructive pulmonary disease) (4) Pulmonary edema (5) Morbid obesity (6) Hx of seizure disorder Respiratory: monitor respiratory rate, adjust FIO2, CXR Cardiac: continue to monitor HR/BP Renal: F/U I&O, check electrolytes Infectious Disease: check cultures Gastrointestinal: continue feedings/current rate Endocrine: monitor blood sugar Hematologic: monitor H/H, transfuse if hgb<8.5 Neurologic: PRN Ativan, keep patient comfortable Affect: PRN ativan Disposition: keep in ICU Notes Reviewed: protection agent, renal Discussed with: nurses, consultants, case technicianproduct manager medical device - Objective Last 24 Hour Vital Signs Date Time Temp Pulse Resp B/P (MAP) Pulse Ox O2 Delivery O2 Flow Rate FiO2 01/29/20 09:37 114/71 01/29/20 09:26 95 01/29/20 09:23 64 15 30 01/29/20 08:59 30 01/29/20 08:00 81 01/29/20 08:00 98.2 66 21 114/71 (85) 99 01/29/20 08:00 Mechanical Ventilator 01/29/20 07:15 63 17 30 01/29/20 04:34 58 1 30 01/29/20 04:00 Mechanical Ventilator 01/29/20 04:00 30 01/29/20 04:00 78 01/29/20 04:00 98.2 63 21 152/66 (94) 98 01/29/20 03:08 62 18 30 01/29/20 00:37 86 17 30 01/29/20 00:00 98.9 63 21 124/68 (86) 99 01/29/20 00:00 30 01/29/20 00:00 Mechanical Ventilator 01/29/20 00:00 64 01/28/20 23:27 86 17 30 01/28/20 21:10 83 17 30 01/28/20 20:32 126/76 01/28/20 20:00 30 01/28/20 20:00 Mechanical Ventilator 01/28/20 20:00 98.2 66 20 118/63 (81) 99 01/28/20 20:00 74 01/28/20 19:06 84 17 30 01/28/20 16:58 81 19 30 01/28/20 16:00 30 01/28/20 16:00 98.8 68 20 117/69 (85) 98 01/28/20 16:00 Mechanical Ventilator 01/28/20 15:15 75 01/28/20 14:30 75 17 30 01/28/20 13:05 83 18 30 01/28/20 12:00 99.1 66 17 126/66 (86) 99 01/28/20 12:00 30 01/28/20 12:00 Mechanical Ventilator 01/28/20 11:35 62 01/28/20 11:07 78 14 30 Status: awake Condition: critical HEENT: atraumatic, normocephalic Lungs: rales, rhonchi Heart: HR/BP stable, regular Abdomen: non-tender, active bowel sounds Extremities: no C/C/E Critical Care - Subjective ROS Limited/Unobtainable: No Condition: critical EKG Rhythm: Sinus Rhythm FI02: 30 Vent Support Breath Rate: 14 Vent Support Mode: AC Vent Tidal Volume: 600 Sputum Amount: Small PEEP: 0.0 PIP: 25 I&O: Intake and Output 01/28/20 01/29/20 19:00 07:00 Intake Total 722.5 ml 352.5 ml Output Total 300 ml 600 ml Balance 422.5 ml -247.5 ml Intake Oral 520 ml IV Total 202.5 ml 352.5 ml Output Urine Total 300 ml 600 ml # Voids 1 # Bowel Movements 1 CXR: no change Labs: Laboratory Tests Test 01/29/20 10:00 White Blood Count Pending Red Blood Count Pending Hemoglobin Pending Hematocrit Pending Mean Corpuscular Volume Pending Mean Corpuscular Hemoglobin Pending Mean Corpuscular Hemoglobin Concent Pending Red Cell Distribution Width Pending Platelet Count Pending Mean Platelet Volume Pending Neutrophils (%) (Auto) Pending Lymphocytes (%) (Auto) Pending Monocytes (%) (Auto) Pending Eosinophils (%) (Auto) Pending Basophils (%) (Auto) Pending Sodium Level Pending Potassium Level Pending Chloride Level Pending Carbon Dioxide Level Pending Blood Urea Nitrogen Pending Creatinine Pending Estimat Glomerular Filtration Rate Pending Glucose Level Pending Calcium Level Pending Michael Lombardo MD Jan 29, 2020 10:33
--- NOTE | 2020-01-29 10:43 | General Progress Note ---
Assessment/Plan Assessment/Plan: 1. History of morbid obesity. 2. Hypertension. 3. Chronic respiratory failure with a trach. 4. Psychiatric disorder. 5. Intermittent atrial fibrillation. 6. Anemia 7. ? GIB ppi stable H&H no obvious GIB eating well replace K Subjective ROS Limited/Unobtainable: Yes Allergies: Coded Allergies: FISH DERIVED (Verified Allergy, Unknown, 01/23/20) PENICILLINS (Verified Allergy, Unknown, 01/23/20) SULFAMETHOXAZOLE (Verified Allergy, Unknown, 01/23/20) TRIMETHOPRIM (Verified Allergy, Unknown, 01/23/20) Objective Last 24 Hour Vital Signs Date Time Temp Pulse Resp B/P (MAP) Pulse Ox O2 Delivery O2 Flow Rate FiO2 01/29/20 09:37 114/71 01/29/20 09:26 95 01/29/20 09:23 64 15 30 01/29/20 08:59 30 01/29/20 08:00 81 01/29/20 08:00 98.2 66 21 114/71 (85) 99 01/29/20 08:00 Mechanical Ventilator 01/29/20 07:15 63 17 30 01/29/20 04:34 58 1 30 01/29/20 04:00 Mechanical Ventilator 01/29/20 04:00 30 01/29/20 04:00 78 01/29/20 04:00 98.2 63 21 152/66 (94) 98 01/29/20 03:08 62 18 30 01/29/20 00:37 86 17 30 01/29/20 00:00 98.9 63 21 124/68 (86) 99 01/29/20 00:00 30 01/29/20 00:00 Mechanical Ventilator 01/29/20 00:00 64 01/28/20 23:27 86 17 30 01/28/20 21:10 83 17 30 01/28/20 20:32 126/76 01/28/20 20:00 30 01/28/20 20:00 Mechanical Ventilator 01/28/20 20:00 98.2 66 20 118/63 (81) 99 01/28/20 20:00 74 01/28/20 19:06 84 17 30 01/28/20 16:58 81 19 30 01/28/20 16:00 30 01/28/20 16:00 98.8 68 20 117/69 (85) 98 01/28/20 16:00 Mechanical Ventilator 01/28/20 15:15 75 01/28/20 14:30 75 17 30 01/28/20 13:05 83 18 30 01/28/20 12:00 99.1 66 17 126/66 (86) 99 01/28/20 12:00 30 01/28/20 12:00 Mechanical Ventilator 01/28/20 11:35 62 01/28/20 11:07 78 14 30 Intake and Output 01/28/20 01/29/20 19:00 07:00 Intake Total 722.5 ml 352.5 ml Output Total 300 ml 600 ml Balance 422.5 ml -247.5 ml Intake Oral 520 ml IV Total 202.5 ml 352.5 ml Output Urine Total 300 ml 600 ml # Voids 1 # Bowel Movements 1 Laboratory Tests 01/29/20 10:00: White Blood Count [Pending], Red Blood Count [Pending], Hemoglobin [Pending], Hematocrit [Pending], Mean Corpuscular Volume [Pending], Mean Corpuscular Hemoglobin [Pending], Mean Corpuscular Hemoglobin Concent [Pending], Red Cell Distribution Width [Pending], Platelet Count [Pending], Mean Platelet Volume [ Pending], Neutrophils (%) (Auto) [Pending], Lymphocytes (%) (Auto) [Pending], Monocytes (%) (Auto) [Pending], Eosinophils (%) (Auto) [Pending], Basophils (%) (Auto) [Pending], Sodium Level [Pending], Potassium Level [Pending], Chloride Level [Pending], Carbon Dioxide Level [Pending], Blood Urea Nitrogen [Pending], Creatinine [Pending], Estimat Glomerular Filtration Rate [Pending], Glucose Level [Pending], Calcium Level [Pending] Height (Feet): 5 Height (Inches): 9.00 Weight (Pounds): 490 General Appearance: alert EENT: normal ENT inspection Neck: normal alignment Cardiovascular: normal rate Respiratory/Chest: decreased breath sounds Abdomen: normal bowel sounds, non tender, soft Extremities: non-tender Mathew Singletno MD Jan 29, 2020 10:42
[2020-01-29 11:00] LABS: BASOPHILS % (AUTO) 0.8 % (0.0-2.0); EOSINOPHILS % (AUTO) 5.7 % (0.0-3.0); HEMATOCRIT 39.2 % (42.0-52.0); HEMOGLOBIN 12.8 G/DL (14.2-18.0); LYMPHOCYTES % (AUTO) 25.1 % (20.0-45.0); MEAN CORPUSCULAR VOLUME 89 FL (80-99); MONOCYTES % (AUTO) 8.4 % (1.0-10.0); NEUTROPHILS % (AUTO) 59.9 % (45.0-75.0); PLATELET COUNT 159 K/UL (150-450); RED BLOOD COUNT 4.43 M/UL (4.70-6.10); RED CELL DISTRIBUTION WIDTH 13.6 % (11.6-14.8); WHITE BLOOD COUNT 6.4 K/UL (4.8-10.8)
[2020-01-29] MEDS ORDERED: Sodium Chloride for KCL Premix X 4hrs IV SCH (11:00)
[2020-01-29 11:07] LABS: ANION GAP 8 mmol/L (5-15); BLOOD UREA NITROGEN 15 mg/dL (7-18); CALCIUM 8.8 MG/DL (8.5-10.1); CARBON DIOXIDE 32 MMOL/L (21-32); CHLORIDE 103 MMOL/L (98-107); CREATININE 0.8 MG/DL (0.55-1.30); POTASSIUM 3.3 MMOL/L (3.5-5.1); SODIUM 142 MMOL/L (136-145)
--- NOTE | 2020-01-29 11:40 | NUR ---
NURSE NOTES: Dr. Lombardo at nurse station. Made MD aware that patient refused K-dur 40 mEq PO Q4HR, pt states does not like the taste. Dr. Lombardo acknowledged. Ordered Potassium chloride 10 mEq IV x 12, for a total of 120 mEq today, Dr. Lombardo acknowledged. Spoke with [facility] pharmacist and is aware of Potassium chloride 10 mEq IV x 12. Inquired from Dr. Lombardo if okay to change Levetiracetam 750 mg IV Q12HR to PO since patient can take PO medications now. Dr. Lombardo acknowledged and ordered Levetiracetam 750 mg PO Q12HR. Orders entered, noted, and carried out.
[2020-01-29] MEDS: Potassium Chloride 40 MEQ in D5W 500ml 550 ML IVPB SCH ×3 (11:54→19:45)
[2020-01-29 12:00] VITALS: BP 140/77
--- NOTE | 2020-01-29 13:09 | NUR ---
CIRCULATION WORKERCRYSTAL EVALUATOR SI: RESP FAILURE TRACH/VENT DEPENDENT,HYPOKALEMIA T. 97.9 HR 76 RR 21 B/P 140/71 AC 14 TV 600 FIO2 305 K 3.3 IS: FLAGYL IV LEVAQUIN IV HEPARIN SUBC KCL IV STEP DOWN STATUS
--- NOTE | 2020-01-29 14:20 | NUR ---
NURSE NOTES: Contacted and informed Dr. Lombardo of new ABG results while patient was on 6L cool aerosol 30%: pH7.389, pCO2 56.2, pO2 80, HCO3 33.2. Currently patient is on 6L cool aerosol 30% with SpO2 99% no c/o SOB. Dr. Lombardo acknowledged and ordered place patient on ventilator PRN for SOB. Order entered, noted, and carried out. Will continue to monitor patient.
--- NOTE | 2020-01-29 14:27 | NUR ---
01/29/20 CHART REVIWED, INTERVIEW WITH RN SCOTT AND RT ANTHONY PRIOR TO PMSV TRIALS. PATIENT ON FIO2 35% COOL AEROSOL WITH #8 SHILEY CUFFED TRACH. PER RT, PATIENTS SECRETIONS ARE MINIMAL AND SUCTIONING IS INFREQUENT. PER PATIENT REPORT HE USES A SPEAKING VALVE IN THE SN[facility]. (PATIENT IS ABLE TO ACHIEVE FLEETING VOICING WITHOUT BENEFIT OF PMSV.) PATIENT POSITIONED AT MIDLINE, WITH HEAD FLEXED FORWARD SLIGHTLY WITH USE OF ADDITIONAL PILLOWS. BASELINE/PRE-PMSV TRIAL: 02SAT: 100% RR 18 BPM BP 112/78 HR 82 AFTER 15 MIN CONTINUOUS PMSV USE: 02 SAT 100% HR 80 BP 114/82 RR 20 PATIENT ACHIEVED IMMEDIATE VOICING WITH USE OF PMSV. VOICING SUSTAINED 2-3 SECONDS LIMITING LENGH OF UTTERANCE TO 3/WORD PHRASES. PATIENT PRESENTS WITH STRONG COMMUNICATIVE INTENT AND IMMEDIATELY VERBALIZED NEEDS TO RT AND RN. AFTER 30 MINUTES OF CONTINUOUS PMSV USE; 02 SAT 100% RR 20 HR 80 BP 114/80 PATIENT TOUCHED TRACH COLLAR HE STATED "THIS IS WHAT I AM USED TO USING AT THE NURSING FACILITY" PATIENT ALSO TOLERATED HIS NOON MEAL WHILE WEARING THE PMSV. NO OVERT S/S OF ASPIRATION DURING P.OL. PMSV REMOVED POST P.O. NOON MEAL. ST TO FOLLOW FOR VOICE TREATMENT (PROLONGING PHONATION), DYSPHAGIA MANAGEMENT, DIET TOLERANCE, PATIENT/STAFF EDUCATION
[2020-01-29] MEDS ORDERED: HYDROcodone/Acetamin 10/325 tab ORAL PRN (14:30)
[2020-01-29] MEDS: HYDROmorphone 1mg/ml Carpuject IVP PRN ×2 (15:25→21:57)
[2020-01-29 16:00] VITALS: BP_SYST 116; BP_SYST 139; BP_DIAS 66; BP_DIAS 73
--- NOTE | 2020-01-29 19:20 | NUR ---
NURSE NOTES: Received pt from Anupam Aragon RN. pt is observed resting in bed, able to make needs known, denies pain at this time. pt is on T-piece: Shiley: 8; 6 L/min; FiO2: 30% with cool aerosol. tolerating well, saturation: 99%, no s/sx of respiratory distress noted. teletypesetter monitor shows SR at this time, no acute cardiac distress noted. RH 22g IV site is patent and intact, asymptomatic. PRINCE 22 g IV site is patent and intact, running D5W w/ 40 meq KCl at prescribed rate. bed in lowest position and locked, padded siderails up X3, call light within reach. will continue to monitor.
[2020-01-29 20:00] VITALS: BP 132/69
--- NOTE | 2020-01-29 20:00 | Progress Note ---
DATE: 01/29/2020 SUBJECTIVE: The patient is awake, alert, afebrile, and hemodynamically stable. He is quite able to perform all activities of ADLs with his upper extremities. PHYSICAL EXAMINATION: VITAL SIGNS: Blood pressure 116/66, pulse is 67, temperature 98.4. HEENT: Eyes were normal. ENT, mucous membranes were moist and intact. NECK: Supple with no JVD without lymph nodes. Tracheostomy site is clean. LUNGS: Clear without rhonchi, rales, or wheezing. HEART: Normal sounds with regular beats. There is no S3, S4, or pericardial rub. ABDOMEN: Soft and nontender with normal bowel sounds. Abdomen is extremely obese. EXTREMITIES: Warm without cyanosis, clubbing, or edema. LABORATORY AND DIAGNOSTIC DATA: His hemoglobin is 12.8, hematocrit 39.2 with MCV of 89, WBC of 6.4, and platelets is 159. His BUN and creatinine are 16 and 0.8 respectively. His sodium is 142, potassium 3.3, chloride 103, CO2 is 32. His calcium is 8.8. No new laboratory studies available at the time of dictation. IMPRESSION: The patient appeared to be in stable condition. He is being followed by Infectious Disease and portfolio specialist. The patient is currently on metronidazole 500 mg IV piggyback q.8, levofloxacin 750 mg IV piggyback every 24 hours. Repeat laboratory tests will be done in the a.m. Efren Herrera M.D. DR: RAMSES JOB#: [id number] CC:
[2020-01-29] MEDS: levETIRAcetam 500mg/5ml Liquid ORAL SCH (21:52)
[2020-01-29] MEDS: TraZODone 50mg tab ORAL SCH (21:54)
[2020-01-30] VITALS (7 sets, daily range): BP systolic 120–136; BP diastolic 66–89
--- NOTE | 2020-01-30 01:26 | NUR ---
NURSE NOTES: pt refused scheduled furosemide and potassium as ordered per MD. pt states he will take them later. left message for Dr. Stern notifying him of pt's request. awaiting call back.
--- NOTE | 2020-01-30 01:30 | Progress Note ---
DATE: 01/29/2020 CARDIOLOGY PROGRESS NOTE SUBJECTIVE: The patient remains on ventilator support. Weaning efforts ongoing. Monitored rhythm, sinus. PHYSICAL EXAMINATION: LUNGS: Bilateral breath sounds. CARDIAC: Regular rhythm and rate. Normal S1 and S2. ABDOMEN: Soft. EXTREMITIES: No edema. LABORATORY DATA: White count 6.4 and hemoglobin 12.8. Potassium 3.3, BUN 15, and creatinine 0.8. IMPRESSION: 1. Respiratory failure. 2. Hypokalemia. 3. Recovered shock due to sepsis. 4. Resolved myocardial ischemia. 5. Chronic ischemic heart disease. 6. Chronic diastolic congestive heart failure. 7. Paroxysmal atrial fibrillation. PLAN: 1. Replace potassium. 2. Recheck lab studies including magnesium. 3. Nutritions by feeding tube. 4. Weaning efforts. 5. Periodic diuresis based on clinical parameters. 6. Cardioembolic prophylaxis ongoing. Franky Stern M.D. DR: DAVID JOB#: [id number] CC:
[2020-01-30] MEDS: HYDROmorphone 1mg/ml Carpuject IVP PRN ×3 (03:56→18:26)
--- NOTE | 2020-01-30 07:28 | NUR ---
HAND-OFF: Report given to EMETERIO Phan. pt is in stable condition.
--- NOTE | 2020-01-30 07:35 | NUR ---
NURSE NOTES: Received report from Anupam Rosales RN. Patient asleep in bed, opens eyes spontaneously, able to make needs known and follow commands. Receiving O2 via T-piece @ 6L/min, FiO2 30%, no s/s of respiratory distress noted. Patient is incontinent, refuses condom catheter. Absorbent underpad clean and dry at this time. Right hand 22g and right upper arm 22g IV sites patent and asymptomatic. Bed locked in lowest position with padded side rails up x 3. All needs attended to. Call light within reach. Will continue to monitor. Addendum: 01/30/20 at 0910 by Emilie Juarez RN patient is receiving O2 via trach collar
--- NOTE | 2020-01-30 08:47 | General Progress Note ---
Assessment/Plan Assessment/Plan: 1. History of morbid obesity. 2. Hypertension. 3. Chronic respiratory failure with a trach. 4. Psychiatric disorder. 5. Intermittent atrial fibrillation. 6. Anemia 7. ? GIB ppi stable H&H no obvious GIB eating well replace K Subjective ROS Limited/Unobtainable: Yes Allergies: Coded Allergies: MILK (Verified Allergy, Mild, 01/29/20) FISH DERIVED (Verified Allergy, Unknown, 01/23/20) PENICILLINS (Verified Allergy, Unknown, 01/23/20) SULFAMETHOXAZOLE (Verified Allergy, Unknown, 01/23/20) TRIMETHOPRIM (Verified Allergy, Unknown, 01/23/20) Objective Last 24 Hour Vital Signs Date Time Temp Pulse Resp B/P (MAP) Pulse Ox O2 Delivery O2 Flow Rate FiO2 01/30/20 08:00 6.0 30 01/30/20 08:00 T-piece 6.0 01/30/20 06:55 97 Cool Aerosol 6.0 30 01/30/20 04:00 T-piece 01/30/20 04:00 97.7 70 22 123/66 (85) 98 01/30/20 04:00 6.0 30 01/30/20 04:00 76 01/30/20 00:00 98.1 73 20 133/73 (93) 99 01/30/20 00:00 T-piece 01/30/20 00:00 6.0 30 01/30/20 00:00 79 01/29/20 21:54 132/69 01/29/20 20:00 T-piece 01/29/20 20:00 97.7 74 22 132/69 (90) 99 01/29/20 20:00 6.0 30 01/29/20 20:00 71 01/29/20 18:42 98 Cool Aerosol 6.0 30 01/29/20 16:00 30 01/29/20 16:00 98.4 77 21 116/66 (83) 98 01/29/20 16:00 67 01/29/20 16:00 Mechanical Ventilator 01/29/20 12:57 99 Cool Aerosol 6.0 30 01/29/20 12:00 97.9 76 21 140/77 (98) 99 01/29/20 12:00 Mechanical Ventilator 01/29/20 12:00 30 01/29/20 12:00 72 01/29/20 10:40 69 19 30 30 01/29/20 09:37 114/71 01/29/20 09:26 95 01/29/20 09:23 64 15 30 01/29/20 08:59 30 Intake and Output 01/29/20 01/30/20 19:00 07:00 Intake Total 927.5 ml 820.000 ml Balance 927.5 ml 820.000 ml Intake Oral 400 ml IV Total 527.5 ml 820.000 ml # Voids 2 2 Laboratory Tests 01/29/20 10:00: White Blood Count 6.4, Red Blood Count 4.43L, Hemoglobin 12.8L, Hematocrit 39.2L , Mean Corpuscular Volume 89, Mean Corpuscular Hemoglobin 28.9, Mean Corpuscular Hemoglobin Concent 32.6, Red Cell Distribution Width 13.6, Platelet Count 159, Mean Platelet Volume 8.8, Neutrophils (%) (Auto) 59.9, Lymphocytes (% ) (Auto) 25.1, Monocytes (%) (Auto) 8.4, Eosinophils (%) (Auto) 5.7H, Basophils (%) (Auto) 0.8, Sodium Level 142, Potassium Level 3.3L, Chloride Level 103, Carbon Dioxide Level 32, Anion Gap 8, Blood Urea Nitrogen 15, Creatinine 0.8, Estimat Glomerular Filtration Rate > 60, Glucose Level 110H, Calcium Level 8.8 01/29/20 11:08: Arterial Blood pH 7.389, Arterial Blood Partial Pressure CO2 56.2*H, Arterial Blood Partial Pressure O2 80.0, Arterial Blood HCO3 33.2H, Arterial Blood Oxygen Saturation 95.4, Arterial Blood Base Excess 6.5H, Alex Test Positive Height (Feet): 5 Height (Inches): 9.00 Weight (Pounds): 490 General Appearance: no apparent distress EENT: normal ENT inspection Neck: supple Cardiovascular: normal rate Respiratory/Chest: decreased breath sounds Abdomen: normal bowel sounds, non tender, soft Extremities: non-tender Mathew Singleton MD Jan 30, 2020 08:47
[2020-01-30] MEDS: Pantoprazole Inj IVP SCH ×2 (08:56→09:00)
[2020-01-30] MEDS: Aspirin Baby 81mg ORAL SCH ×2 (08:56→09:00)
[2020-01-30] MEDS: Theophylline ER 100mg ORAL SCH ×3 (08:56→18:15)
[2020-01-30] MEDS: Enalapril 5mg tab ORAL SCH ×3 (08:57→21:57)
[2020-01-30] MEDS: levETIRAcetam 500mg/5ml Liquid ORAL SCH ×3 (08:57→21:56)
[2020-01-30] MEDS: Heparin 5000 units/ml inj SUBQ SCH ×2 (09:00→21:59)
--- NOTE | 2020-01-30 09:06 | NUR ---
NURSE NOTES: Patient refused labs and meds. Maile Segovia, MICHELLE, made aware. Patient has history of bipolar disorder and depression. Per Maile Segovia, she will order a psych consult.
--- NOTE | 2020-01-30 09:18 | Infectious Diseases Prog Note ---
Assessment/Plan Assessment/Plan ASSESSMENT: The patient is a 49-year-old male with: Low-grade fever, sp Leukocytosis., sp Aspiration pneumonia - SC: nl [id number] History of seizure disorder. COPD. Bipolar disorder. Depression. Atrial fibrillation PLAN: on Levaquin and Flagyl day # 7 Monitor CBC Monitor BMP. Monitor cultures (blood ) Monitor chest x-ray Subjective Allergies: Coded Allergies: MILK (Verified Allergy, Mild, 01/29/20) FISH DERIVED (Verified Allergy, Unknown, 01/23/20) PENICILLINS (Verified Allergy, Unknown, 01/23/20) SULFAMETHOXAZOLE (Verified Allergy, Unknown, 01/23/20) TRIMETHOPRIM (Verified Allergy, Unknown, 01/23/20) Subjective comfortable afebrile Objective Vital Signs Last 24 Hour Vital Signs Date Time Temp Pulse Resp B/P (MAP) Pulse Ox O2 Delivery O2 Flow Rate FiO2 01/30/20 08:57 134/89 01/30/20 08:00 6.0 30 01/30/20 08:00 Trach Collar 6.0 01/30/20 08:00 97.3 93 20 134/89 (104) 100 01/30/20 07:57 71 01/30/20 06:55 97 Cool Aerosol 6.0 30 01/30/20 04:00 T-piece 01/30/20 04:00 97.7 70 22 123/66 (85) 98 01/30/20 04:00 6.0 30 01/30/20 04:00 76 01/30/20 00:00 98.1 73 20 133/73 (93) 99 01/30/20 00:00 T-piece 01/30/20 00:00 6.0 30 01/30/20 00:00 79 01/29/20 21:54 132/69 01/29/20 20:00 T-piece 01/29/20 20:00 97.7 74 22 132/69 (90) 99 01/29/20 20:00 6.0 30 01/29/20 20:00 71 01/29/20 18:42 98 Cool Aerosol 6.0 30 01/29/20 16:00 30 01/29/20 16:00 98.4 77 21 116/66 (83) 98 01/29/20 16:00 67 01/29/20 16:00 Mechanical Ventilator 01/29/20 12:57 99 Cool Aerosol 6.0 30 01/29/20 12:00 97.9 76 21 140/77 (98) 99 01/29/20 12:00 Mechanical Ventilator 01/29/20 12:00 30 01/29/20 12:00 72 01/29/20 10:40 69 19 30 30 01/29/20 09:37 114/71 01/29/20 09:26 95 01/29/20 09:23 64 15 30 Height (Feet): 5 Height (Inches): 9.00 Weight (Pounds): 490 HEENT: anicteric Respiratory/Chest: no accessory muscle use Cardiovascular: regular rhythm Abdomen: soft, non tender Laboratory Tests Test 01/29/20 10:00 01/29/20 11:08 White Blood Count 6.4 K/UL (4.8-10.8) Red Blood Count 4.43 M/UL (4.70-6.10) L Hemoglobin 12.8 G/DL (14.2-18.0) L Hematocrit 39.2 % (42.0-52.0) L Mean Corpuscular Volume 89 FL (80-99) Mean Corpuscular Hemoglobin 28.9 PG (27.0-31.0) Mean Corpuscular Hemoglobin Concent 32.6 G/DL (32.0-36.0) Red Cell Distribution Width 13.6 % (11.6-14.8) Platelet Count 159 K/UL (150-450) Mean Platelet Volume 8.8 FL (6.5-10.1) Neutrophils (%) (Auto) 59.9 % (45.0-75.0) Lymphocytes (%) (Auto) 25.1 % (20.0-45.0) Monocytes (%) (Auto) 8.4 % (1.0-10.0) Eosinophils (%) (Auto) 5.7 % (0.0-3.0) H Basophils (%) (Auto) 0.8 % (0.0-2.0) Sodium Level 142 MMOL/L (136-145) Potassium Level 3.3 MMOL/L (3.5-5.1) L Chloride Level 103 MMOL/L (98-107) Carbon Dioxide Level 32 MMOL/L (21-32) Anion Gap 8 mmol/L (5-15) Blood Urea Nitrogen 15 mg/dL (7-18) Creatinine 0.8 MG/DL (0.55-1.30) Estimat Glomerular Filtration Rate > 60 mL/min (>60) Glucose Level 110 MG/DL (74-106) H Calcium Level 8.8 MG/DL (8.5-10.1) Arterial Blood pH 7.389 (7.350-7.450) Arterial Blood Partial Pressure CO2 56.2 mmHg (35.0-45.0) *H Arterial Blood Partial Pressure O2 80.0 mmHg (75.0-100.0) Arterial Blood HCO3 33.2 mmol/L (22.0-26.0) H Arterial Blood Oxygen Saturation 95.4 % (95-100) Arterial Blood Base Excess 6.5 (-2-2) H Alex Test Positive Current Medications Medications (Trade) Dose Ordered Sig/Phuong Route PRN Reason Start Time Stop Time Status Last Admin Dose Admin Acetaminophen/ Hydrocodone Bitart (Flushing 10/325) 1 tab Q8H PRN ORAL Mild Pain (Pain Scale 1-3) 01/29/20 14:30 01/31/20 16:29 Aspirin (ASA) 81 mg DAILY ORAL 01/26/20 09:00 02/23/20 08:59 01/29/20 09:36 Atorvastatin Calcium (Lipitor) 10 mg BEDTIME ORAL 01/25/20 21:00 02/23/20 20:59 01/29/20 21:54 Enalapril Maleate (Vasotec) 5 mg EVERY 12 HOURS ORAL 01/25/20 21:00 02/23/20 08:59 01/30/20 08:57 Furosemide (Lasix) 40 mg ONCE IV 01/30/20 09:00 01/30/20 10:00 Guaifenesin/ Dextromethorphan (Robitussin DM Syrup) 10 ml Q4H PRN ORAL For Cough 01/25/20 16:30 02/23/20 16:29 Heparin Sodium (Porcine) (Heparin 5000 units/ml) 5,000 units EVERY 12 HOURS SUBQ 01/25/20 21:00 02/23/20 20:59 01/29/20 21:59 Hydromorphone HCl (Dilaudid) 1 mg Q6H PRN IVP Severe Pain (Pain Scale 7-10) 01/29/20 14:30 02/05/20 14:29 01/30/20 03:56 Levetiracetam (Keppra) 750 mg Q12HR ORAL 01/29/20 21:00 02/28/20 20:59 01/30/20 08:57 Levofloxacin 150 ml @ 100 mls/hr Q24H IVPB 01/25/20 21:00 02/01/20 20:59 01/29/20 21:54 Lorazepam (Ativan 2mg/ml 1ml) 1 mg Q4H PRN IV For Anxiety 01/25/20 17:26 01/31/20 17:25 01/29/20 18:51 Metronidazole 100 ml @ 100 mls/hr Q8H IVPB 01/25/20 22:30 02/01/20 14:29 01/30/20 06:08 Morphine Sulfate (Morphine Sulfate) 4 mg Q4H PRN IVP Moderate Pain (Pain Scale 4-6) 01/29/20 14:30 02/02/20 19:44 Ondansetron HCl (Zofran) 4 mg Q6H PRN IVP Nausea & Vomiting 01/25/20 17:26 02/23/20 17:25 Pantoprazole (Protonix) 40 mg DAILY IVP 01/26/20 09:00 02/23/20 15:59 01/29/20 09:36 Potassium Chloride (K-Dur) 40 meq ONCE ORAL 01/30/20 09:00 01/30/20 10:00 Theophylline (Austen-Dur) 100 mg BID ORAL 01/25/20 18:00 02/23/20 17:59 01/30/20 08:56 Trazodone HCl (Desyrel) 50 mg BEDTIME ORAL 01/25/20 21:00 02/23/20 20:59 01/29/20 21:54 Charles Snyder MD Jan 30, 2020 09:18
--- NOTE | 2020-01-30 09:20 | Pulmonology Progress Note ---
Assessment/Plan Assessment/Plan ASSESSMENT Acute hypercapnic respiratory failure on chronic respiratory failure with tracheostomy status Acute COPD with exacerbation Probably aspiration PNA Elevated troponin /acute myocardial ischemia Pulmonary edema Chronic CHF Hypernatremia , likely due to dehydration -resolved Anemia Transaminitis Obesity Likely KENAN Hypertension Seizure disorder Hepatitic C Paroxysmal A fib Noncompliance PLAN OF CARE CORNELIUS now off vent, on 30% cool aerosol via trach tolerates pulmonary toilet with bronchodilator prn, suction prn off steroids trial of theophylline antitussive prn last CXR with pulm vascular congestion BNP 730-> 71 s/p spot Lasix venous Duplex BLE negative DVT prophylaxis fup with CXR ECHO with pEF to the extent visualized, RVSP 24 cardio on board continue ASA and statin spot diuresis, monitor volumes BP management with SHIRA and optimize as needed, stable second troponin negative, no CP, empiric abx for prob asp- PNA -per ID leuk and efvers resolved BCX , SCX negatuve ST eval for PMV trials done, using now aspiration precautions GI prophylaxis bowel regimen seizure precautions, continue Keppra monitor renal paramerts, lytes, correct lytes as needed trend LFT -trending down abdominal US -fatty liver hep panel + hep C monitor HH with goal to jeep Hgb above 7 , remains stable refusing meds and labs psych eval case discussed and evaluated by supervising physician Subjective Allergies: Coded Allergies: MILK (Verified Allergy, Mild, 01/29/20) FISH DERIVED (Verified Allergy, Unknown, 01/23/20) PENICILLINS (Verified Allergy, Unknown, 01/23/20) SULFAMETHOXAZOLE (Verified Allergy, Unknown, 01/23/20) TRIMETHOPRIM (Verified Allergy, Unknown, 01/23/20) Subjective on cool aerosol 30%, tolerates, no signs of resp distress refused labs and meds today Objective Last 24 Hour Vital Signs Date Time Temp Pulse Resp B/P (MAP) Pulse Ox O2 Delivery O2 Flow Rate FiO2 01/30/20 08:57 134/89 01/30/20 08:00 6.0 30 01/30/20 08:00 T-piece 6.0 01/30/20 08:00 97.3 93 20 134/89 (104) 100 01/30/20 06:55 97 Cool Aerosol 6.0 30 01/30/20 04:00 T-piece 01/30/20 04:00 97.7 70 22 123/66 (85) 98 01/30/20 04:00 6.0 30 01/30/20 04:00 76 01/30/20 00:00 98.1 73 20 133/73 (93) 99 01/30/20 00:00 T-piece 01/30/20 00:00 6.0 30 01/30/20 00:00 79 01/29/20 21:54 132/69 01/29/20 20:00 T-piece 01/29/20 20:00 97.7 74 22 132/69 (90) 99 01/29/20 20:00 6.0 30 01/29/20 20:00 71 01/29/20 18:42 98 Cool Aerosol 6.0 30 01/29/20 16:00 30 01/29/20 16:00 98.4 77 21 116/66 (83) 98 01/29/20 16:00 67 01/29/20 16:00 Mechanical Ventilator 01/29/20 12:57 99 Cool Aerosol 6.0 30 01/29/20 12:00 97.9 76 21 140/77 (98) 99 01/29/20 12:00 Mechanical Ventilator 01/29/20 12:00 30 01/29/20 12:00 72 01/29/20 10:40 69 19 30 30 01/29/20 09:37 114/71 01/29/20 09:26 95 01/29/20 09:23 64 15 30 Intake and Output 01/29/20 01/30/20 19:00 07:00 Intake Total 927.5 ml 820.000 ml Balance 927.5 ml 820.000 ml Intake Oral 400 ml IV Total 527.5 ml 820.000 ml # Voids 2 2 Objective General Appearance: morbidly obese male with trach Lines, tubes and drains: peripheral HEENT: normocephalic, atraumatic, anicteric, Neck: trach Shiley # 8, on FiO2 30%, secretions small amount, thick consistency , white color Respiratory/Chest: chest wall non-tender, overall decreased BS Cardiovascular/Chest: normal rate Abdomen: normal bowel sounds, soft , obese Skin Exam: warm/dry Neurologic: abnormal gait, responsive Musculoskeletal: normal muscle bulk Extremities: edema + 1 BUE amd BLE Laboratory Tests 01/29/20 10:00: White Blood Count 6.4, Red Blood Count 4.43L, Hemoglobin 12.8L, Hematocrit 39.2L , Mean Corpuscular Volume 89, Mean Corpuscular Hemoglobin 28.9, Mean Corpuscular Hemoglobin Concent 32.6, Red Cell Distribution Width 13.6, Platelet Count 159, Mean Platelet Volume 8.8, Neutrophils (%) (Auto) 59.9, Lymphocytes (% ) (Auto) 25.1, Monocytes (%) (Auto) 8.4, Eosinophils (%) (Auto) 5.7H, Basophils (%) (Auto) 0.8, Sodium Level 142, Potassium Level 3.3L, Chloride Level 103, Carbon Dioxide Level 32, Anion Gap 8, Blood Urea Nitrogen 15, Creatinine 0.8, Estimat Glomerular Filtration Rate > 60, Glucose Level 110H, Calcium Level 8.8 01/29/20 11:08: Arterial Blood pH 7.389, Arterial Blood Partial Pressure CO2 56.2*H, Arterial Blood Partial Pressure O2 80.0, Arterial Blood HCO3 33.2H, Arterial Blood Oxygen Saturation 95.4, Arterial Blood Base Excess 6.5H, Alex Test Positive Current Medications Medications (Trade) Dose Ordered Sig/Phuong Route PRN Reason Start Time Stop Time Status Last Admin Dose Admin Acetaminophen/ Hydrocodone Bitart ([place] 10/325) 1 tab Q8H PRN ORAL Mild Pain (Pain Scale 1-3) 01/29/20 14:30 01/31/20 16:29 Aspirin (ASA) 81 mg DAILY ORAL 01/26/20 09:00 02/23/20 08:59 01/29/20 09:36 Atorvastatin Calcium (Lipitor) 10 mg BEDTIME ORAL 01/25/20 21:00 02/23/20 20:59 01/29/20 21:54 Enalapril Maleate (Vasotec) 5 mg EVERY 12 HOURS ORAL 01/25/20 21:00 02/23/20 08:59 01/30/20 08:57 Furosemide (Lasix) 40 mg ONCE IV 01/30/20 09:00 01/30/20 10:00 Guaifenesin/ Dextromethorphan (Robitussin DM Syrup) 10 ml Q4H PRN ORAL For Cough 01/25/20 16:30 02/23/20 16:29 Heparin Sodium (Porcine) (Heparin 5000 units/ml) 5,000 units EVERY 12 HOURS SUBQ 01/25/20 21:00 02/23/20 20:59 01/29/20 21:59 Hydromorphone HCl (Dilaudid) 1 mg Q6H PRN IVP Severe Pain (Pain Scale 7-10) 01/29/20 14:30 02/05/20 14:29 01/30/20 03:56 Levetiracetam (Keppra) 750 mg Q12HR ORAL 01/29/20 21:00 02/28/20 20:59 01/30/20 08:57 Levofloxacin 150 ml @ 100 mls/hr Q24H IVPB 01/25/20 21:00 02/01/20 20:59 01/29/20 21:54 Lorazepam (Ativan 2mg/ml 1ml) 1 mg Q4H PRN IV For Anxiety 01/25/20 17:26 01/31/20 17:25 01/29/20 18:51 Metronidazole 100 ml @ 100 mls/hr Q8H IVPB 01/25/20 22:30 02/01/20 14:29 01/30/20 06:08 Morphine Sulfate (Morphine Sulfate) 4 mg Q4H PRN IVP Moderate Pain (Pain Scale 4-6) 01/29/20 14:30 02/02/20 19:44 Ondansetron HCl (Zofran) 4 mg Q6H PRN IVP Nausea & Vomiting 01/25/20 17:26 02/23/20 17:25 Pantoprazole (Protonix) 40 mg DAILY IVP 01/26/20 09:00 02/23/20 15:59 01/29/20 09:36 Potassium Chloride (K-Dur) 40 meq ONCE ORAL 01/30/20 09:00 01/30/20 10:00 Theophylline (Austen-Dur) 100 mg BID ORAL 01/25/20 18:00 02/23/20 17:59 01/30/20 08:56 Trazodone HCl (Desyrel) 50 mg BEDTIME ORAL 01/25/20 21:00 02/23/20 20:59 01/29/20 21:54 Maile Segovia [employer] Jan 30, 2020 09:20
[2020-01-30] MEDS ORDERED: Albuterol/Ipratropium 3ml neb HHN PRN (09:30)
[2020-01-30] MEDS ORDERED: NS 500ML ONE (12:04)
[2020-01-30] MEDS ORDERED: Tubing IV Secondary IV ONE (12:04)
[2020-01-30] MEDS ORDERED: NS 275ml ONE (12:04)
[2020-01-30] MEDS: LORazepam Inj 2mg/ml 1ml IV PRN ×2 (14:25→22:29)
--- NOTE | 2020-01-30 19:15 | NUR ---
NURSE NOTES: Received pt from EMETERIO Phan. pt is observed resting in bed, eyes open, able to make needs known; denies pain at this time. pt is on T-piece, S: 8; 6 L/min; FiO2: 30% with cool aerosol. tolerating well, saturation: 98%, no s/sx of respiratory distress noted. ball racker shows SR, no acute cardiac distress noted. skin alterations noted. RH 22 g and PRINCE 22 g IV sites are patent and intact, asymptomatic. bed in lowest position and locked, padded siderails up X3, call light within reach. will continue to monitor.
--- NOTE | 2020-01-30 19:23 | NUR ---
HAND-OFF: Report given to Anupam Rosales RN.
[2020-01-30] MEDS: TraZODone 50mg tab ORAL SCH (21:56)
--- NOTE | 2020-01-30 23:30 | Progress Note ---
DATE: 01/30/2020 CARDIOLOGY PROGRESS NOTE SUBJECTIVE: Off vent and trach collar. 30% FiO2. No distress. Thin secretions. Monitored rhythm sinus and sinus bradycardia. Echocardiogram revealed normal ejection fraction, although echo window was 4. PHYSICAL EXAMINATION: VITAL SIGNS: Blood pressure 134/89, pulse 93, respiratory rate 20. Afebrile. LUNGS: Bilateral breath sounds. Few rhonchi. No wheezes. HEART: Regular rhythm and rate. Distant S1, S2. ABDOMEN: Morbidly obese and there is trace dependent edema. LABORATORY DATA: No new laboratories today. IMPRESSION: 1. Respiratory failure. 2. Morbid obesity. 3. Acute myocardial ischemia, resolved. 4. Acute on chronic diastolic congestive heart failure. 5. Hypokalemia. 6. Acute on chronic respiratory acidosis. 7. Moderate protein-calorie malnutrition. 8. Paroxysmal atrial fibrillation. PLAN: 1. Respiratory hygiene. 2. Titrate antihypertensives. 3. Continue anti-platelet therapy. 4. Theophylline was added. Need to watch closely for secondary atrial arrhythmias, especially in conjunction with beta agonist therapy. 5. Recheck potassium and magnesium and replace accordingly. 6. The patient remains high risk. Franky Stern M.D. DR: ILIANA JOB#: [id number] CC:
[2020-01-31] VITALS: BP 117/57
[2020-01-31] MEDS: HYDROmorphone 1mg/ml Carpuject IVP PRN ×4 (00:34→20:55)
--- NOTE | 2020-01-31 01:00 | Progress Note ---
DATE: 01/30/2020 SUBJECTIVE: The patient is awake, alert, afebrile, and hemodynamically stable. PHYSICAL EXAMINATION: VITAL SIGNS: Blood pressure is 136/69, his pulse is 77, respirations 20, and temperature 97.7. HEENT: Eyes were normal. ENT, mucous membranes were moist and intact. NECK: Supple with no JVD without lymph nodes. Tracheostomy site is clean. LUNGS: Clear without rhonchi, rales, or wheezing. HEART: Normal sounds with regular beats. There is no tachycardia at rest. ABDOMEN: Soft, nontender, with normal bowel sounds. Gastrostomy site is clean. EXTREMITIES: Warm without cyanosis, clubbing, or edema. LABORATORY AND DIAGNOSTIC DATA: Hemoglobin 12.6, hematocrit 32.2 with MCV of 89, WBC of 6.4, and platelets is 159,000. His BUN and creatinine is 15 and 0.5 respectively. His sodium is 142, potassium 3.3, chloride 103, CO2 is 32. IMPRESSION AND PLAN: The patient is in stable condition. The patient is now weaned primarily from ventilator of 70%. He is now on respiratory therapy, pulmonary toilet, DVT prophylaxis, and blood pressure management with SHIRA inhibitor. The patient is intermittently refused any medication or laboratory tests. The patient requested to return to subacute unit and he will be stable within 24 hours and be transferred to such unit. Repeat laboratory tests will be done in the a.m. Efren Herrera M.D. DR: CARLI JOB#: [id number] CC:
--- NOTE | 2020-01-31 03:25 | NUR ---
NURSE NOTES: left message for Dr. Herrera regarding pt's complaint of "unbearable itching" as stated by patient. awaiting call back. will continue to monitor pt.
--- NOTE | 2020-01-31 03:30 | NUR ---
NURSE NOTES: received call back from Dr. Herrera with new orders. will carry out.
[2020-01-31] MEDS: DiphenhydrAMINE 50mg/ml Inj IVP PRN ×3 (03:37→23:01)
[2020-01-31 04:00] VITALS: BP 114/68
[2020-01-31 07:18] LABS: BASOPHILS % (AUTO) 0.6 % (0.0-2.0); EOSINOPHILS % (AUTO) 6.5 % (0.0-3.0); HEMOGLOBIN 12.9 G/DL (14.2-18.0); LYMPHOCYTES % (AUTO) 29.1 % (20.0-45.0); MEAN CORPUSCULAR VOLUME 90 FL (80-99); MONOCYTES % (AUTO) 10.5 % (1.0-10.0); NEUTROPHILS % (AUTO) 53.3 % (45.0-75.0); PLATELET COUNT 193 K/UL (150-450); RED BLOOD COUNT 4.46 M/UL (4.70-6.10); WHITE BLOOD COUNT 7.7 K/UL (4.8-10.8)
[2020-01-31 08:00] VITALS: BP 121/72
--- NOTE | 2020-01-31 08:00 | NUR ---
NURSE NOTES: received pt in the bed, awake, alert, vital signs stable, no SOB, trach color FIO2 30%, obese, skin warm and dry to touch, heplock on RT wrist patten, incontinent, bed in low position, call light within reach.
--- NOTE | 2020-01-31 08:20 | NUR ---
HAND-OFF: Report given to Dino June RN. pt is in stable condition.
[2020-01-31 08:30] LABS: ANION GAP 4 mmol/L (5-15); BLOOD UREA NITROGEN 10 mg/dL (7-18); CALCIUM 9.1 MG/DL (8.5-10.1); CARBON DIOXIDE 37 MMOL/L (21-32); CHLORIDE 103 MMOL/L (98-107); CREATININE 0.8 MG/DL (0.55-1.30); POTASSIUM 3.5 MMOL/L (3.5-5.1); SODIUM 144 MMOL/L (136-145)
--- NOTE | 2020-01-31 08:45 | General Progress Note ---
Assessment/Plan Assessment/Plan: 1. History of morbid obesity. 2. Hypertension. 3. Chronic respiratory failure with a trach. 4. Psychiatric disorder. 5. Intermittent atrial fibrillation. 6. Anemia 7. ? GIB ppi stable H&H no obvious GIB eating well fu labs Subjective ROS Limited/Unobtainable: Yes Allergies: Coded Allergies: MILK (Verified Allergy, Mild, 01/29/20) FISH DERIVED (Verified Allergy, Unknown, 01/23/20) PENICILLINS (Verified Allergy, Unknown, 01/23/20) SULFAMETHOXAZOLE (Verified Allergy, Unknown, 01/23/20) TRIMETHOPRIM (Verified Allergy, Unknown, 01/23/20) Objective Last 24 Hour Vital Signs Date Time Temp Pulse Resp B/P (MAP) Pulse Ox O2 Delivery O2 Flow Rate FiO2 01/31/20 08:00 6.0 30 01/31/20 07:07 94 Cool Aerosol 6.0 30 01/31/20 04:00 69 01/31/20 04:00 Trach Collar 6.0 01/31/20 04:00 98.8 77 22 114/68 (83) 99 01/31/20 04:00 6.0 30 01/31/20 01:05 100 Cool Aerosol 6.0 30 01/31/20 00:00 6.0 30 01/31/20 00:00 Trach Collar 6.0 01/31/20 00:00 98.7 77 20 117/57 (77) 97 01/31/20 00:00 67 01/30/20 21:57 120/69 01/30/20 20:00 Trach Collar 6.0 01/30/20 20:00 6.0 30 01/30/20 20:00 68 01/30/20 20:00 97.7 71 20 120/69 (86) 98 01/30/20 19:37 100 Cool Aerosol 6.0 30 01/30/20 18:56 97.7 01/30/20 16:00 Trach Collar 6.0 01/30/20 16:00 97.7 83 18 130/79 (96) 98 01/30/20 16:00 6.0 30 01/30/20 15:31 65 01/30/20 12:40 98 Cool Aerosol 6.0 30 01/30/20 12:00 Trach Collar 6.0 01/30/20 12:00 97.7 77 20 136/89 (105) 98 01/30/20 12:00 6.0 30 01/30/20 11:31 73 01/30/20 08:57 134/89 Intake and Output 01/30/20 01/31/20 19:00 07:00 Intake Total 700 ml 250 ml Balance 700 ml 250 ml Intake Oral 500 ml IV Total 200 ml 250 ml # Voids 2 3 Laboratory Tests 01/31/20 07:00: White Blood Count 7.7, Red Blood Count 4.46L, Hemoglobin 12.9L, Hematocrit 40.0L , Mean Corpuscular Volume 90, Mean Corpuscular Hemoglobin 29.0, Mean Corpuscular Hemoglobin Concent 32.3, Red Cell Distribution Width 14.0, Platelet Count 193, Mean Platelet Volume 8.8, Neutrophils (%) (Auto) 53.3, Lymphocytes (% ) (Auto) 29.1, Monocytes (%) (Auto) 10.5H, Eosinophils (%) (Auto) 6.5H, Basophils (%) (Auto) 0.6, Sodium Level 144, Potassium Level 3.5, Chloride Level 103, Carbon Dioxide Level 37H, Anion Gap 4L, Blood Urea Nitrogen 10, Creatinine 0.8, Estimat Glomerular Filtration Rate > 60, Glucose Level 100, Calcium Level 9.1 Height (Feet): 5 Height (Inches): 9.00 Weight (Pounds): 490 General Appearance: alert EENT: normal ENT inspection Neck: supple Cardiovascular: normal rate Respiratory/Chest: decreased breath sounds Abdomen: normal bowel sounds, non tender, soft Extremities: non-tender Mathew Singleton MD Jan 31, 2020 08:45
[2020-01-31] MEDS: Aspirin Baby 81mg ORAL SCH (09:00)
[2020-01-31] MEDS: Enalapril 5mg tab ORAL SCH ×2 (09:00→20:53)
[2020-01-31] MEDS: Theophylline ER 100mg ORAL SCH ×2 (09:00→17:33)
[2020-01-31] MEDS: Heparin 5000 units/ml inj SUBQ SCH ×2 (09:00→20:57)
[2020-01-31] MEDS: levETIRAcetam 500mg/5ml Liquid ORAL SCH ×2 (09:00→20:54)
[2020-01-31] MEDS: Pantoprazole Inj IVP SCH (09:00)
--- NOTE | 2020-01-31 10:00 | NUR ---
NURSE NOTES: rt refuse morning medication.
--- NOTE | 2020-01-31 10:42 | Pulmonology Progress Note ---
Assessment/Plan Assessment/Plan ASSESSMENT Acute hypercapnic respiratory failure on chronic respiratory failure with tracheostomy status Acute COPD with exacerbation Probably aspiration PNA Elevated troponin /acute myocardial ischemia Pulmonary edema Chronic CHF Hypernatremia , likely due to dehydration -resolved Anemia Transaminitis Obesity Likely KENAN Hypertension Seizure disorder Hepatitic C Paroxysmal A fib Noncompliance PLAN OF CARE CORNELIUS now off vent, on 30% cool aerosol via trach tolerates current FiO2 w/out signs of resp distress pulmonary toilet with bronchodilator prn, suction prn off steroids trial of theophylline antitussive prn last CXR with pulm vascular congestion BNP 730-> 71 s/p spot Lasix venous Duplex BLE negative DVT prophylaxis fup with CXR ECHO with pEF to the extent visualized, RVSP 24 cardio on board continue ASA and statin spot diuresis, monitor volumes BP management with SHIRA and optimize as needed, stable second troponin negative, no CP, empiric abx for prob asp- PNA -per ID leuk and fevers resolved BCX , SCX negative ST eval for PMV trials done, using now aspiration precautions GI prophylaxis bowel regimen seizure precautions, continue Keppra monitor renal paramerts, lytes, correct lytes as needed trend LFT -trending down abdominal US -fatty liver hep panel + hep C monitor HH with goal to jeep Hgb above 7 , remains stable refusing meds and labs psych eval -called Dr Bustos case discussed and evaluated by supervising physician Subjective Allergies: Coded Allergies: MILK (Verified Allergy, Mild, 01/29/20) FISH DERIVED (Verified Allergy, Unknown, 01/23/20) PENICILLINS (Verified Allergy, Unknown, 01/23/20) SULFAMETHOXAZOLE (Verified Allergy, Unknown, 01/23/20) TRIMETHOPRIM (Verified Allergy, Unknown, 01/23/20) Subjective on cool aerosol 30%, tolerates, no signs of resp distress refused labs and meds 01/29, labs stable this am remains afebrile, no leukocytosis Objective Last 24 Hour Vital Signs Date Time Temp Pulse Resp B/P (MAP) Pulse Ox O2 Delivery O2 Flow Rate FiO2 01/31/20 08:00 98.6 74 22 121/72 (88) 100 01/31/20 08:00 6.0 30 01/31/20 08:00 78 01/31/20 07:07 94 Cool Aerosol 6.0 30 01/31/20 04:00 69 01/31/20 04:00 Trach Collar 6.0 01/31/20 04:00 98.8 77 22 114/68 (83) 99 01/31/20 04:00 6.0 30 01/31/20 01:05 100 Cool Aerosol 6.0 30 01/31/20 00:00 6.0 30 01/31/20 00:00 Trach Collar 6.0 01/31/20 00:00 98.7 77 20 117/57 (77) 97 01/31/20 00:00 67 01/30/20 21:57 120/69 01/30/20 20:00 Trach Collar 6.0 01/30/20 20:00 6.0 30 01/30/20 20:00 68 01/30/20 20:00 97.7 71 20 120/69 (86) 98 01/30/20 19:37 100 Cool Aerosol 6.0 30 01/30/20 18:56 97.7 01/30/20 16:00 Trach Collar 6.0 01/30/20 16:00 97.7 83 18 130/79 (96) 98 01/30/20 16:00 6.0 30 01/30/20 15:31 65 01/30/20 12:40 98 Cool Aerosol 6.0 30 01/30/20 12:00 Trach Collar 6.0 01/30/20 12:00 97.7 77 20 136/89 (105) 98 01/30/20 12:00 6.0 30 01/30/20 11:31 73 Intake and Output 01/30/20 01/31/20 19:00 07:00 Intake Total 700 ml 250 ml Balance 700 ml 250 ml Intake Oral 500 ml IV Total 200 ml 250 ml # Voids 2 3 Objective General Appearance: morbidly obese male with trach Lines, tubes and drains: peripheral HEENT: normocephalic, atraumatic, anicteric, Neck: trach Shiley # 8, on FiO2 30%, secretions small amount, thick consistency , white color Respiratory/Chest: chest wall non-tender, overall decreased BS Cardiovascular/Chest: normal rate Abdomen: normal bowel sounds, soft , obese Skin Exam: warm/dry Neurologic: abnormal gait, responsive Musculoskeletal: normal muscle bulk Extremities: edema + 1 BUE amd BLE Laboratory Tests 01/31/20 07:00: White Blood Count 7.7, Red Blood Count 4.46L, Hemoglobin 12.9L, Hematocrit 40.0L , Mean Corpuscular Volume 90, Mean Corpuscular Hemoglobin 29.0, Mean Corpuscular Hemoglobin Concent 32.3, Red Cell Distribution Width 14.0, Platelet Count 193, Mean Platelet Volume 8.8, Neutrophils (%) (Auto) 53.3, Lymphocytes (% ) (Auto) 29.1, Monocytes (%) (Auto) 10.5H, Eosinophils (%) (Auto) 6.5H, Basophils (%) (Auto) 0.6, Sodium Level 144, Potassium Level 3.5, Chloride Level 103, Carbon Dioxide Level 37H, Anion Gap 4L, Blood Urea Nitrogen 10, Creatinine 0.8, Estimat Glomerular Filtration Rate > 60, Glucose Level 100, Calcium Level 9.1 Current Medications Medications (Trade) Dose Ordered Sig/Phuong Route PRN Reason Start Time Stop Time Status Last Admin Dose Admin Acetaminophen/ Hydrocodone Bitart ([place] 10/325) 1 tab Q8H PRN ORAL Mild Pain (Pain Scale 1-3) 01/29/20 14:30 01/31/20 16:29 Albuterol/ Ipratropium (Albuterol/ Ipratropium) 3 ml Q4H PRN HHN sob 01/30/20 09:30 02/04/20 09:29 Aspirin (ASA) 81 mg DAILY ORAL 01/26/20 09:00 02/23/20 08:59 01/29/20 09:36 Atorvastatin Calcium (Lipitor) 10 mg BEDTIME ORAL 01/25/20 21:00 02/23/20 20:59 01/30/20 21:57 Diphenhydramine HCl (Benadryl) 50 mg Q4H PRN IVP Itching 01/31/20 03:30 03/01/20 03:29 01/31/20 03:37 Enalapril Maleate (Vasotec) 5 mg EVERY 12 HOURS ORAL 01/25/20 21:00 02/23/20 08:59 01/30/20 21:57 Guaifenesin/ Dextromethorphan (Robitussin DM Syrup) 10 ml Q4H PRN ORAL For Cough 01/25/20 16:30 02/23/20 16:29 Heparin Sodium (Porcine) (Heparin 5000 units/ml) 5,000 units EVERY 12 HOURS SUBQ 01/25/20 21:00 02/23/20 20:59 01/30/20 21:59 Hydromorphone HCl (Dilaudid) 1 mg Q6H PRN IVP Severe Pain (Pain Scale 7-10) 01/29/20 14:30 02/05/20 14:29 01/31/20 06:48 Levetiracetam (Keppra) 750 mg Q12HR ORAL 01/29/20 21:00 02/28/20 20:59 01/30/20 21:56 Lorazepam (Ativan 2mg/ml 1ml) 1 mg Q4H PRN IV For Anxiety 01/25/20 17:26 01/31/20 17:25 01/30/20 22:29 Morphine Sulfate (Morphine Sulfate) 4 mg Q4H PRN IVP Moderate Pain (Pain Scale 4-6) 01/29/20 14:30 02/02/20 19:44 Ondansetron HCl (Zofran) 4 mg Q6H PRN IVP Nausea & Vomiting 01/25/20 17:26 02/23/20 17:25 Pantoprazole (Protonix) 40 mg DAILY IVP 01/26/20 09:00 02/23/20 15:59 01/29/20 09:36 Theophylline ([place]-Dur) 100 mg BID ORAL 01/25/20 18:00 02/23/20 17:59 01/30/20 18:15 Trazodone HCl (Desyrel) 50 mg BEDTIME ORAL 01/25/20 21:00 02/23/20 20:59 01/30/20 21:56 Maile Segovia NP Jan 31, 2020 10:42
[2020-01-31 12:00] VITALS: BP 136/85
[2020-01-31 16:00] VITALS: BP 113/69
--- NOTE | 2020-01-31 19:10 | NUR ---
NURSE NOTES: Pt report received from SAL Moss RN. pt remains stable. pt is alert and oriented times 4. pt is on T piece satting at 99%, no resp distress noted. pt is on bus monitor showing Addendum: 02/01/20 at 0715 by KELLY HUERTA RN NURSE NOTES: Pt report received from SAL Moss RN. pt remains stable. pt is alert and oriented times 4. pt is on T piece satting at 99%, no resp distress noted. pt is on bus monitor showing NSR, no cardiac distress noted. pt bed is low, locked, armed, bed rails up times 4, call light within reach. will follow plan of care.
--- NOTE | 2020-01-31 19:22 | NUR ---
RESPIRATORY NOTE: Received pt on 30% Cool Aerosol via Trach collar. Pt is trach-dependent w/ a cuffed, Shiley 8 XLT tube, cuff is currently deflated. Pt is alert/awake, follows commands. B/S ani. rhonchi/diminished, sxn minimal amounts of thick, [place]-yellow secretions. Vent on standby at bedside, plugged into red outlet. [place] at bedside. Pt noted to have skin redness on the upper chest area just below the trach due to the trach & aerosol tube touching the chest. No wound or skin breakdown noted. RN aware. Pt denies SOB/chest pain at this time. Will continue plan of care.
--- NOTE | 2020-01-31 19:45 | NUR ---
HAND-OFF: Report given to BRADLEY STORM, NO DISTRESS AT THIS TIME.
[2020-01-31 20:00] VITALS: BP 110/71
[2020-01-31] MEDS: TraZODone 50mg tab ORAL SCH (20:53)
--- NOTE | 2020-01-31 23:59 | NUR ---
NURSE NOTES: spoke to doctor Javier Bo he stated pt does not need ATIVAN due to pt not having any seizers so far in hospital stay. additionally, doctor understands pt does take Ativan for anxiety, not just for seizers. doctor Javier stated to follow up with him if pt does have any seizer episode.
[2020-02-01] VITALS: BP 114/68
[2020-02-01] MEDS: HYDROmorphone 1mg/ml Carpuject IVP PRN ×2 (03:02→21:54)
[2020-02-01 04:00] VITALS: BP 109/70
--- NOTE | 2020-02-01 04:15 | Progress Note ---
DATE: 01/31/2020 CARDIOLOGY PROGRESS NOTE SUBJECTIVE: The patient is on T-tube collar. Monitored rhythm, sinus. Occasional PVCs noted. Chest x-ray is somewhat unreliable due to his body habitus, but suggests pulmonary venous congestion. OBJECTIVE: VITAL SIGNS: Blood pressure 121/72, heart rate 74, and respiratory rate 22. LUNGS: Diminished breath sounds. CARDIAC: Regular rhythm and rate. Normal S1 and S2. Distant heart sounds. ABDOMEN: Obese. EXTREMITIES: Trace edema. LABORATORY DATA: White count 7.7 and hemoglobin 12.9. Sodium 144, potassium 3.5, bicarbonate 37, BUN 10, and creatinine 0.8. IMPRESSION: 1. Acute on chronic respiratory acidosis. 2. Status post respiratory failure, now with tracheostomy. 3. COPD exacerbation. 4. Acute myocardial ischemia. 5. Acute on chronic diastolic congestive heart failure, now clinically compensated. 6. Resolved hypernatremia and dehydration. 7. Hypertensive heart disease. 8. Paroxysmal atrial fibrillation. 9. Nonsustained ventricular ectopy. 10. Contraction alkalosis. PLAN: 1. Maintain current cardiovascular regimen. 2. No additional diuresis at this time. 3. Respiratory hygiene. 4. DVT prophylaxis. Franky Stern M.D. DR: DAVID JOB#: [id number] CC:
[2020-02-01] MEDS: DiphenhydrAMINE 50mg/ml Inj IVP PRN ×3 (05:22→20:30)
--- NOTE | 2020-02-01 07:10 | NUR ---
HAND-OFF: Report given to MADAY STORM. pt remains stable.
--- NOTE | 2020-02-01 07:10 | NUR ---
NURSE NOTES: Received report from EMETERIO Singleton. The patient is resting on the bed without acute distress or shortness of breath. The patient's bed in the lowest position, call light in reach, and fall, aspiration, and seizure precaution reinforced. IV site intact and patent. The patient wears oxygen via trach collar per order and oxygen saturation within normal range. The patient is refusing care and resistant in care even with explanation. Will continue plano f care.
[2020-02-01 08:00] VITALS: BP 133/68
--- NOTE | 2020-02-01 08:00 | General Progress Note ---
Assessment/Plan Assessment/Plan: 1. History of morbid obesity. 2. Hypertension. 3. Chronic respiratory failure with a trach. 4. Psychiatric disorder. 5. Intermittent atrial fibrillation. 6. Anemia 7. ? GIB ppi stable H&H no obvious GIB eating well fu labs Subjective ROS Limited/Unobtainable: Yes Allergies: Coded Allergies: MILK (Verified Allergy, Mild, 01/29/20) FISH DERIVED (Verified Allergy, Unknown, 01/23/20) PENICILLINS (Verified Allergy, Unknown, 01/23/20) SULFAMETHOXAZOLE (Verified Allergy, Unknown, 01/23/20) TRIMETHOPRIM (Verified Allergy, Unknown, 01/23/20) Objective Last 24 Hour Vital Signs Date Time Temp Pulse Resp B/P (MAP) Pulse Ox O2 Delivery O2 Flow Rate FiO2 02/01/20 04:00 6.0 30 02/01/20 04:00 59 02/01/20 04:00 98.9 65 21 109/70 (83) 98 02/01/20 01:10 97 Trach Collar 8.0 30 02/01/20 00:00 98.5 73 19 114/68 (83) 98 02/01/20 00:00 68 02/01/20 00:00 6.0 30 01/31/20 21:00 Trach Collar 6.0 01/31/20 20:53 125/57 01/31/20 20:00 98.9 77 19 110/71 (84) 98 01/31/20 20:00 6.0 30 01/31/20 20:00 68 01/31/20 19:20 99 Trach Collar 8.0 30 01/31/20 16:00 81 01/31/20 16:00 6.0 30 01/31/20 16:00 98.8 74 18 113/69 (84) 98 01/31/20 13:34 98.7 01/31/20 13:13 96 Cool Aerosol 6.0 30 01/31/20 12:00 6.0 30 01/31/20 12:00 74 01/31/20 12:00 98.7 74 20 136/85 (102) 100 01/31/20 09:00 Trach Collar 6.0 01/31/20 09:00 121/72 Intake and Output 01/31/20 02/01/20 19:00 07:00 Intake Total 450 ml Balance 450 ml Intake Oral 450 ml # Voids 2 Height (Feet): 5 Height (Inches): 9.00 Weight (Pounds): 490 General Appearance: alert EENT: normal ENT inspection Neck: supple Cardiovascular: normal rate Respiratory/Chest: decreased breath sounds Abdomen: normal bowel sounds, non tender, soft Extremities: non-tender Mathew Singleton MD Feb 01, 2020 08:00
--- NOTE | 2020-02-01 08:30 | Progress Note ---
DATE: 01/31/2020 SUBJECTIVE: The patient is awake, alert, afebrile, and comfortable and more energetic than yesterday. PHYSICAL EXAMINATION: VITAL SIGNS: Blood pressure is 125/57, his pulse is 68, respirations are 18, and temperature is 98.8. HEENT: Eyes were normal. ENT, mucous membranes were moist and intact. NECK: Supple with no JVD without lymph nodes. Tracheostomy site is clean. LUNGS: Clear without rhonchi, rales, or wheezing. HEART: Normal sounds with regular beats. There is no tachycardia at rest. ABDOMEN: Soft and nontender with normal bowel sounds. Abdomen is extremely obese. EXTREMITIES: Warm without cyanosis, clubbing, or edema. LABORATORY AND DIAGNOSTIC DATA: Hemoglobin is 12.9, hematocrit is 40.0 with MCV of 90, WBC of 7.7, and platelets are 193,000. His BUN and creatinine are 10 and 0.8 respectively. Sodium is 144, potassium 3.5, chloride 103, CO2 is 37, and calcium is 9.1. IMPRESSION: The patient is now off the respirator and is doing well on tracheostomy with 30% O2. He did develop neurodermatitis last night and received Benadryl 50 mg IV push q.4 h. p.r.n. He does have a long list of chronic medical syndrome that includes in addition to the respiratory failure, morbid obesity, high blood pressure, seizure disorder, hepatitis C, intermittent atrial fibrillation, congestive heart failure with elevated troponin, considered to be more myocarditis rather than acute myocardial infarction, resolving hypernatremia and noncompliance. The patient cannot return back to [facility] as they do not have bariatric bed and subacute unit the patient prior to his discharge. Repeat laboratory tests will be done in the a.m. Efren Herrera M.D. DR: LUCIO JOB#: [id number] CC:
[2020-02-01] MEDS: Aspirin Baby 81mg ORAL SCH (09:21)
[2020-02-01] MEDS: levETIRAcetam 500mg/5ml Liquid ORAL SCH ×2 (09:21→20:30)
[2020-02-01] MEDS: Theophylline ER 100mg ORAL SCH ×2 (09:21→17:35)
[2020-02-01] MEDS: Enalapril 5mg tab ORAL SCH ×2 (09:22→20:32)
[2020-02-01] MEDS: Heparin 5000 units/ml inj SUBQ SCH ×2 (09:23→20:34)
[2020-02-01] MEDS: Morphine Sulfate 4mg/ml Inj (IV USE ONLY) IVP PRN ×2 (09:25→17:36)
--- NOTE | 2020-02-01 10:40 | Pulmonolgy Critical Care Note ---
Critical Care - Asmt/Plan Problems: (1) Acute on chronic respiratory failure (2) Nosocomial pneumonia (3) COPD (chronic obstructive pulmonary disease) (4) Pulmonary edema (5) Morbid obesity (6) Hx of seizure disorder Respiratory: monitor respiratory rate, adjust FIO2, other - off vent Cardiac: continue pressors Renal: F/U I&O, check electrolytes Infectious Disease: check cultures, continue antibiotics Gastrointestinal: continue feedings/current rate Endocrine: monitor blood sugar, check HgA1C Neurologic: PRN Ativan, PRN Morphine Prophylaxis: Heparin Discussed with: nurses, consultants, casework managerbindery manager - Objective Last 24 Hour Vital Signs Date Time Temp Pulse Resp B/P (MAP) Pulse Ox O2 Delivery O2 Flow Rate FiO2 02/01/20 09:22 133/68 02/01/20 04:00 6.0 30 02/01/20 04:00 59 02/01/20 04:00 98.9 65 21 109/70 (83) 98 02/01/20 01:10 97 Trach Collar 8.0 30 02/01/20 00:00 98.5 73 19 114/68 (83) 98 02/01/20 00:00 68 02/01/20 00:00 6.0 30 01/31/20 21:00 Trach Collar 6.0 01/31/20 20:53 125/57 01/31/20 20:00 98.9 77 19 110/71 (84) 98 01/31/20 20:00 6.0 30 01/31/20 20:00 68 01/31/20 19:20 99 Trach Collar 8.0 30 01/31/20 16:00 81 01/31/20 16:00 6.0 30 01/31/20 16:00 98.8 74 18 113/69 (84) 98 01/31/20 13:34 98.7 01/31/20 13:13 96 Cool Aerosol 6.0 30 01/31/20 12:00 6.0 30 01/31/20 12:00 74 01/31/20 12:00 98.7 74 20 136/85 (102) 100 Status: awake Neck: trach Lungs: clear Heart: HR/BP stable Abdomen: active bowel sounds, feeding tube Extremities: edema Critical Care - Subjective ROS Limited/Unobtainable: Yes Condition: critical EKG Rhythm: Sinus Rhythm FI02: 30 Vent Support Breath Rate: 14 Vent Support Mode: AC Vent Tidal Volume: 600 Sputum Amount: Small PEEP: 0.0 PIP: 18 I&O: Intake and Output 01/31/20 02/01/20 19:00 07:00 Intake Total 450 ml Balance 450 ml Intake Oral 450 ml # Voids 2 Michael Lombardo MD Feb 01, 2020 10:40
--- NOTE | 2020-02-01 10:46 | NUR ---
*-* DISCHARGE PLANNING *-* PATIENT HAS BEEN REFERRED BACK TO: [facility] P: [phone] F: [phone] EFAX: [phone]
--- NOTE | 2020-02-01 10:47 | NUR ---
RD ASSESSMENT & RECOMMENDATIONS SEE CARE ACTIVITY FOR COMPLETE ASSESSMENT DAILY ESTIMATED NEEDS: Needs based on obesity, Pulmonary 22-25 kcal/kg IBW 72.7kg kcals/kg 9713-9288 total kcals 1.5-2.5g/kg IBW g protein/kg 109-180 g total protein per MD mL/kg NUTRITION DIAGNOSIS: * Swallowing difficulty R/T respiratory failure as evidenced by pt now off the vent, back on T-collar, on [facility] soft ground texture diet per GAS REGULATOR REPAIRER HELPER rec. * Morbid obesity R/T life style factors? excessive energy intake? as evidenced by BMI >70. CURRENT DIET: Cardiac ms ground w/ thin liquids PO DIET RECOMMENDATIONS: Cardiac/ texture per GAS REGULATOR REPAIRER HELPER ADDITIONAL RECOMMENDATIONS: * Obtain calibrated bedscale wt as able, recalibrate on bid boy bed as able * Monitor for texture upgrade- pt requesting texture upgrade, GAS REGULATOR REPAIRER HELPER informed * Monitor BGs: BG 199 upon adm, now wnl, no h/o DM, A1C wnl * Wound care: add Vit C 250mg BID+MVI w/ min qd+ERWIN BID * Rec WC eval for wound photos @ sacrum and BL elbows * Monitor lytes, replete as needed
[2020-02-01 12:00] VITALS: BP 118/71
--- NOTE | 2020-02-01 12:00 | NUR ---
NURSE NOTES: The patient is stable without acute distress or shortness of breath. Dr. Lombardo ordered case management consult for SNF placement. Will continue plan of care.
--- NOTE | 2020-02-01 13:08 | Diagnostic Imaging Report ---
Indication: Dyspnea Comparison: 01/28/2020 A single view chest radiograph was obtained. Findings: Accounting for differences in technique there is probably no change. Mild pulmonary vascular congestion may be present. Heart is enlarged. Tracheostomy again noted. IMPRESSION: Suspected mild pulmonary vascular congestion. Correlate clinically
--- NOTE | 2020-02-01 13:30 | Infectious Diseases Prog Note ---
Assessment/Plan Assessment/Plan ASSESSMENT: The patient is a 49-year-old male with: Low-grade fever, sp Leukocytosis., sp Aspiration pneumonia - SC: nl krzysztof -01/31 CXR: Suspected mild pulmonary vascular congestion. Correlate clinically History of seizure disorder. COPD. Bipolar disorder. Depression. Atrial fibrillation PLAN: monitor pt off of AB Rx 01/29 Sp Levaquin and Flagyl day # 05/31 Monitor CBC Monitor BMP. Monitor chest x-ray Subjective Allergies: Coded Allergies: MILK (Verified Allergy, Mild, 01/29/20) FISH DERIVED (Verified Allergy, Unknown, 01/23/20) PENICILLINS (Verified Allergy, Unknown, 01/23/20) SULFAMETHOXAZOLE (Verified Allergy, Unknown, 01/23/20) TRIMETHOPRIM (Verified Allergy, Unknown, 01/23/20) Subjective comfortable afebrile Objective Vital Signs Last 24 Hour Vital Signs Date Time Temp Pulse Resp B/P (MAP) Pulse Ox O2 Delivery O2 Flow Rate FiO2 02/01/20 09:22 133/68 02/01/20 09:00 Trach Collar 6.0 02/01/20 08:00 6.0 30 02/01/20 08:00 99.4 64 20 133/68 (89) 95 02/01/20 07:05 98 Trach Collar 8.0 30 02/01/20 04:00 6.0 30 02/01/20 04:00 59 02/01/20 04:00 98.9 65 21 109/70 (83) 98 02/01/20 01:10 97 Trach Collar 8.0 30 02/01/20 00:00 98.5 73 19 114/68 (83) 98 02/01/20 00:00 68 02/01/20 00:00 6.0 30 01/31/20 21:00 Trach Collar 6.0 01/31/20 20:53 125/57 01/31/20 20:00 98.9 77 19 110/71 (84) 98 01/31/20 20:00 6.0 30 01/31/20 20:00 68 01/31/20 19:20 99 Trach Collar 8.0 30 01/31/20 16:00 81 01/31/20 16:00 6.0 30 01/31/20 16:00 98.8 74 18 113/69 (84) 98 01/31/20 13:34 98.7 Height (Feet): 5 Height (Inches): 9.00 Weight (Pounds): 490 HEENT: anicteric Respiratory/Chest: no respiratory distress Cardiovascular: regular rhythm Abdomen: soft, non tender Current Medications Medications (Trade) Dose Ordered Sig/Phuong Route PRN Reason Start Time Stop Time Status Last Admin Dose Admin Albuterol/ Ipratropium (Albuterol/ Ipratropium) 3 ml Q4H PRN HHN sob 01/30/20 09:30 02/04/20 09:29 Aspirin (ASA) 81 mg DAILY ORAL 01/26/20 09:00 02/23/20 08:59 02/01/20 09:21 Atorvastatin Calcium (Lipitor) 10 mg BEDTIME ORAL 01/25/20 21:00 02/23/20 20:59 01/31/20 20:53 Diphenhydramine HCl (Benadryl) 50 mg Q4H PRN IVP Itching 01/31/20 03:30 03/01/20 03:29 02/01/20 12:45 Enalapril Maleate (Vasotec) 5 mg EVERY 12 HOURS ORAL 01/25/20 21:00 02/23/20 08:59 02/01/20 09:22 Guaifenesin/ Dextromethorphan (Robitussin DM Syrup) 10 ml Q4H PRN ORAL For Cough 01/25/20 16:30 02/23/20 16:29 Heparin Sodium (Porcine) (Heparin 5000 units/ml) 5,000 units EVERY 12 HOURS SUBQ 01/25/20 21:00 02/23/20 20:59 02/01/20 09:23 Hydromorphone HCl (Dilaudid) 1 mg Q6H PRN IVP Severe Pain (Pain Scale 7-10) 01/29/20 14:30 02/05/20 14:29 02/01/20 03:02 Levetiracetam (Keppra) 750 mg Q12HR ORAL 01/29/20 21:00 02/28/20 20:59 02/01/20 09:21 Morphine Sulfate (Morphine Sulfate) 4 mg Q4H PRN IVP Moderate Pain (Pain Scale 4-6) 01/29/20 14:30 02/02/20 19:44 02/01/20 09:25 Ondansetron HCl (Zofran) 4 mg Q6H PRN IVP Nausea & Vomiting 01/25/20 17:26 02/23/20 17:25 Pantoprazole (Protonix) 40 mg DAILY ORAL 02/01/20 09:00 03/02/20 08:59 02/01/20 09:21 Theophylline (Austen-Dur) 100 mg BID ORAL 01/25/20 18:00 02/23/20 17:59 02/01/20 09:21 Trazodone HCl (Desyrel) 50 mg BEDTIME ORAL 01/25/20 21:00 02/23/20 20:59 01/31/20 20:53 Charles Snyder MD Feb 01, 2020 13:30
--- NOTE | 2020-02-01 13:38 | NUR ---
ST NOTES: SWALLOW STATUS: PATIENT DISLIKES AND IS REFUSING THE [facility] SOFT GROUND DIET HE IS GETTING. PER Jim BENITES ON 01/29/20Saturday VIA PHONE WITH PRIMARY MD PHYSICIAN DERMATOLOGIST (Katherine HOUGH), PATIENT WANTED A DIET UPGRADE AND WAS ASKING FOR REGULAR FOOD (THOUGH HE HAS A LOT OF MISSING TEETH). I TOLD HER TO ORDER A TRIAL TRAY OF SOFT CHEW AND OBSERVE WITH WITH EATING AND PM SPEAKING VALVE IN PLACE. PER Jim BENITES, SHE OBSERVED HIM WITH MEAL (BUT SHE DID NOT SPECIFY [facility] SOFT GROUND VERSUS SOFT CHEW DIET AND PATIENT DOES NOT RECALL. SHE IS NOT AVAILABLE TO COMMENT AT THIS TIME). WHEN SHE OBSERVED HIM, SHE SAID HE AND SAID HIS VITALS WERE UNCHANGED AND HE ONLY COUGHED ONCE POST SWALLOW OF A SOLID. CXR FROM 01/27 HAD INTERSTITIAL OPACITY. WILL ORDER TRIAL TRAY OF SOFT CHEW FOOD (AND RN/ALUMNAE SECRETARY CAN CUT FOOD IN CASE HE TOLERATES IT). SPEECH STATUS ABLE TO COMMUNICATE WITH FINGER OCCLUSION OF TRACH. WILL TRY SPEAKING VALVE PLACEMENT AND SPEAKING LATER TODAY OR TOMORROW SINCE HE WANTS TO HAVE A SANDWICH NOW. VALVE TO BE PLACED FOR MEAL. PLAN: TRIAL TRAY OF SOFT CHEW DIET FOR NOW SEE Jim BENITES MD PHYSICIAN DERMATOLOGIST NOTE FOR 01/28 IN CARE ACTIVITY SECTION (SPEECH SECTION) Addendum: 02/01/20 at 1430 by ALANNAH HOUGH MD PHYSICIAN DERMATOLOGIST UPDATED ST NOTE: SWALLOW STATUS: PATIENT DISLIKES AND IS REFUSING THE [facility] SOFT GROUND DIET HE IS GETTING. PER Jim BENITES ON 01/29/20Saturday VIA PHONE WITH PRIMARY MD PHYSICIAN DERMATOLOGIST (Katherine HOUGH), PATIENT WANTED A DIET UPGRADE AND WAS ASKING FOR REGULAR FOOD (THOUGH HE HAS A LOT OF MISSING TEETH). I TOLD HER TO ORDER A TRIAL TRAY OF SOFT CHEW AND OBSERVE WITH WITH EATING AND PM SPEAKING VALVE IN PLACE. PER Jim BENITES, SHE OBSERVED HIM WITH MEAL (SHE OBSERVED HIM WITH BOTH [facility] SOFT GROUND AND SOFT CHEW DIET) AND TOLD ME THAT HE TOLERATED THEM BOTH. SHE SAID HIS VITALS WERE UNCHANGED AND HE ONLY COUGHED ONCE POST SWALLOW OF A SOLID. CXR FROM 01/27 HAD INTERSTITIAL OPACITY. I ORDERED A TRIAL TRAY OF SOFT CHEW FOOD (AND RN/ALUMNAE SECRETARY CAN CUT FOOD IN CASE HE TOLERATES IT). PATIENT OBSERVED WITH SOFT SANDWICH. BED AT 30 DEGREES AND CANNOT GET IT TO 90 DEGREES BUT PATIENT'S CHIN IS DOWN NOT UP AND ABLE APPEARED TO HAVE A FUNCTIONAL AND TIMELY CHEW/SWALLOW MASTICATED SOLID (LARGE BITES OF SANDWICH AND THIN LIQUIDS VIA CUP WHERE HE LIFTS UP BODY MORE W/O CUES) W/O OVERT ASPIRATION AND W/O SIGNIFICANT CHANGE IN RESP RATE 16-18 BPM AND GOOD SP02 AT 95% ON 8 LITERS TRACH COLLAR (OFF VENT) WITH SPEAKING VALVE IN PLACE. EDUCATED/TRAINED STAFF AND PT IN USING AND CLEANING SPEAKING VALVE. SPEECH STATUS ABLE TO COMMUNICATE WITH FINGER OCCLUSION OF TRACH. WILL TRY SPEAKING VALVE PLACEMENT AND SPEAKING LATER TODAY OR TOMORROW SINCE HE WANTS TO HAVE A SANDWICH NOW. VALVE TO BE PLACED FOR MEAL. PATIENT ABLE TO SAY SOME FUNCTIONAL PHRASES IN AN ANGRY VOICE BUT NEEDS TO REPEAT AT TIMES SINCE HE SPEAKS WITH A RAPID RATE. IT ANGERS HIM WHEN HE HAS TO REPEAT. PLAN: UPGRADE TO CARDIAC SOFT CHEW DIET AND CONTINUE WITH THIN LIQUIDS WITH POSTED ASP PRECAUTIONS. CONTINUE WITH PLAN OF CARE WITH SPEAKING VALVE AND DYSPHAGIA MANAGEMENT (SEE EVAL REPORTS). SEE Jim BENITES MD PHYSICIAN DERMATOLOGIST NOTE FOR 01/28 IN CARE ACTIVITY SECTION (SPEECH SECTION) POSTED SIGNS FOR USE/CLEANING OF VALVE AND ASP PRECAUTIONS WITH PO INTAKE.
--- NOTE | 2020-02-01 13:40 | NUR ---
RADIOLOGY DEPT., CHEST X-RAY DONE.-P.DYE
[2020-02-01 13:49] LABS: BASOPHILS % (AUTO) 0.8 % (0.0-2.0); EOSINOPHILS % (AUTO) 5.1 % (0.0-3.0); HEMATOCRIT 42.5 % (42.0-52.0); HEMOGLOBIN 13.9 G/DL (14.2-18.0); LYMPHOCYTES % (AUTO) 25.9 % (20.0-45.0); MEAN CORPUSCULAR VOLUME 89 FL (80-99); MONOCYTES % (AUTO) 11.1 % (1.0-10.0); PLATELET COUNT 201 K/UL (150-450); RED BLOOD COUNT 4.79 M/UL (4.70-6.10); RED CELL DISTRIBUTION WIDTH 13.9 % (11.6-14.8); WHITE BLOOD COUNT 7.9 K/UL (4.8-10.8)
[2020-02-01 13:50] LABS: ANION GAP 4 mmol/L (5-15); BLOOD UREA NITROGEN 9 mg/dL (7-18); CALCIUM 9.2 MG/DL (8.5-10.1); CARBON DIOXIDE 33 MMOL/L (21-32); CHLORIDE 103 MMOL/L (98-107); CREATININE 0.7 MG/DL (0.55-1.30); POTASSIUM 3.8 MMOL/L (3.5-5.1); SODIUM 140 MMOL/L (136-145)
--- NOTE | 2020-02-01 14:00 | NUR ---
NURSE NOTES: The patient is stable without acute distress or shortness of breath. Will continue plan of care.
--- NOTE | 2020-02-01 14:22 | NUR ---
TECHNOLOGY DEVELOPMENT INTERNAIRCRAFT DE ICER INSTALLER SI: RESP FAILURE TRACH/COOL AEROSOL T. 98.2 HR 67 RR 18 B/P 118/71 TRACH/COOL AEROSOL FIO2 30% BUN 33 CXR=Suspected mild pulmonary vascular congestion. Correlate clinically. IS: ALB INLINE TX KEPPRA GT PROTONIX GT SHARATH-DUR GT DC PLANNING TELE STATUS
--- NOTE | 2020-02-01 14:23 | NUR ---
*-* DISCHARGE PLANNING *-* PATIENT HAS BEEN REFERRED TO: [facility] P: [phone] F; [phone] EFAX: [phone] & [facility] P; [phone] F: [phone]
[2020-02-01 16:00] VITALS: BP 116/61
--- NOTE | 2020-02-01 19:20 | NUR ---
HAND-OFF: Report given to EMETERIO Shields. The patient is resting on the bed without acute distress or shortness of breath. The patient's bed in the lowest position, call light in reach, and fall, aspiration, and seizure precaution reinforced. IV site intact and patent. Oxygen therapy via trach collar per order, and oxygen saturation within normal range. Endorsed plan of care.
--- NOTE | 2020-02-01 19:30 | NUR ---
NURSE NOTES: Received patient from EMETERIO Reyes. Patient is aaox 3, verbal. Patient is on patient monitor, cooperative and clean. Rashes in body skin folds noted, IV sites patent and intact. IV on left hand 22g and right upper arm 22g. Bed at its lowest position, call light in reach and x3 bed rails are up.
[2020-02-01 20:00] VITALS: BP 107/63
[2020-02-01] MEDS: TraZODone 50mg tab ORAL SCH (20:32)
--- NOTE | 2020-02-01 22:31 | NUR ---
NURSE NOTES: Dr. Herrera checked on patients progress and stressed that the facility taking patient need a bariatric bed in order to admit the patient. Will forward to dayshift if unable to contact associate financial planner.
[2020-02-02] VITALS: BP 110/68
[2020-02-02] MEDS: DiphenhydrAMINE 50mg/ml Inj IVP PRN ×2 (01:10→20:53)
--- NOTE | 2020-02-02 01:13 | NUR ---
NURSE NOTES: Patient c/o generalized itching. Medication given. Will monitor.
--- NOTE | 2020-02-02 03:26 | NUR ---
NURSE NOTES: Patient is resting well with no complaints.
[2020-02-02 04:00] VITALS: BP 114/62
--- NOTE | 2020-02-02 04:06 | NUR ---
NURSE NOTES: Patient states pain is 8/10 back pain. Patient refuses bed bath.
[2020-02-02] MEDS: HYDROmorphone 1mg/ml Carpuject IVP PRN ×3 (04:08→17:18)
--- NOTE | 2020-02-02 05:30 | Progress Note ---
DATE: 02/01/2020 CARDIOLOGY PROGRESS NOTE SUBJECTIVE: Condition improving. Remains with sinus rhythm. On ventilator support via trach. PHYSICAL EXAMINATION: VITAL SIGNS: Blood pressure 109/70, pulse 65, respiratory rate 21, and afebrile. LUNGS: Bilateral breath sounds. HEART: Regular rhythm and rate. Normal S1 and S2. Monitored rhythm, sinus with atrial ectopy. ABDOMEN: Soft. EXTREMITIES: No edema. IMPRESSION: 1. Respiratory failure. 2. Tracheostomy. 3. Paroxysmal atrial fibrillation. 4. Hypertensive heart disease. 5. Chronic diastolic congestive heart failure. 6. Chronic respiratory acidosis, status post acute exacerbation. 7. Resolved myocardial ischemia. 8. COPD exacerbation, improved. 9. Nonsustained ventricular ectopy of no clinical consequence. PLAN: 1. Respiratory hygiene. 2. Bronchodilators. 3. Full anticoagulation. 4. Maintain antianginal regimen. 5. No additional cardiovascular interventions presently planned. 6. Monitoring volume status and cardiorenal parameters and making adjustments to volume support with presently periodic plans for diuresis to follow based on clinical findings. Franky Stern M.D. DR: EARNEST JOB#: [id number] CC:
--- NOTE | 2020-02-02 07:30 | NUR ---
HAND-OFF: Report given to EMETERIO Phan.
--- NOTE | 2020-02-02 07:30 | Progress Note ---
DATE: 02/01/2020 SUBJECTIVE: The patient has been now off respirator now for the last two days. The patient tolerated well. The patient is awake, alert, afebrile, hemodynamically stable. PHYSICAL EXAMINATION: VITAL SIGNS: Blood pressure 107/63, pulse is 86, respirations 20, temperature 98. HEENT: Eyes were normal. ENT, mucous membranes were moist and intact. NECK: Supple with no JVD without lymph nodes. Tracheostomy site is clean. LUNGS: Clear without rhonchi, rales, or wheezing. HEART: Normal sounds with regular beats. ABDOMEN: Soft and nontender with normal bowel sounds. Gastrostomy site is clean. EXTREMITIES: Warm without cyanosis, clubbing, or edema. LABORATORY AND DIAGNOSTIC DATA: Hemoglobin 7.9, hematocrit 22.5 with MCV of 89, WBC of 7.9, and platelet count 209,000. BUN and creatinine is 10 and 0.7 respectively. Sodium is 140, potassium 3.8, chloride 103, CO2 33. Chest x-ray done today, mild pulmonary congestion 02:59 there is no change. IMPRESSION: The patient is awake alert, afebrile, and hemodynamically stable 03:36 benzodiazepine. Repeat laboratory tests will be done in the a.m. The patient has been in stable condition 04:23 for him. He cannot return to [facility] as they do not have appropriate bariatric bed for his age. Efren Herrera M.D. DR: ELIEZER JOB#: [id number] CC:
--- NOTE | 2020-02-02 07:35 | NUR ---
NURSE NOTES: Received report from Kirk Tijerina RN. Patient asleep in bed, opens eyes spontaneously, able to make needs known and follow commands. Receiving O2 via trach collar @ 10L/min, FiO2 30%, respirations even and unlabored. Patient is incontinent, refuses condom catheter. Absorbent underpad clean and dry at this time. Right hand 22g and right upper arm 22g IV sites patent and asymptomatic. Bed locked in lowest position with padded side rails up x 3. All needs attended to. Call light within reach. Will continue to monitor.
[2020-02-02 08:00] VITALS: BP 117/62
[2020-02-02] MEDS: Morphine Sulfate 4mg/ml Inj (IV USE ONLY) IVP PRN ×2 (08:29→14:59)
[2020-02-02] MEDS: levETIRAcetam 500mg/5ml Liquid ORAL SCH ×2 (08:34→20:53)
[2020-02-02] MEDS: Heparin 5000 units/ml inj SUBQ SCH ×2 (08:35→20:55)
[2020-02-02] MEDS: Enalapril 5mg tab ORAL SCH ×2 (08:35→20:54)
[2020-02-02] MEDS: Theophylline ER 100mg ORAL SCH ×2 (08:37→17:18)
[2020-02-02] MEDS: Aspirin Baby 81mg ORAL SCH (08:37)
--- NOTE | 2020-02-02 10:31 | NUR ---
*-*DISCHARGE PLANNING*-* PATIENT HAS BEEN REFERRED BACK TO: [facility] P: [phone] F: [phone] ------WAITING FOR ACCEPTANCE AND ASSIGNED ROOM #
--- NOTE | 2020-02-02 10:34 | General Progress Note ---
Assessment/Plan Assessment/Plan: 1. History of morbid obesity. 2. Hypertension. 3. Chronic respiratory failure with a trach. 4. Psychiatric disorder. 5. Intermittent atrial fibrillation. 6. Anemia 7. ? GIB ppi stable H&H no obvious GIB eating well fu labs Subjective ROS Limited/Unobtainable: No Allergies: Coded Allergies: MILK (Verified Allergy, Mild, 01/29/20) FISH DERIVED (Verified Allergy, Unknown, 01/23/20) PENICILLINS (Verified Allergy, Unknown, 01/23/20) SULFAMETHOXAZOLE (Verified Allergy, Unknown, 01/23/20) TRIMETHOPRIM (Verified Allergy, Unknown, 01/23/20) Objective Last 24 Hour Vital Signs Date Time Temp Pulse Resp B/P (MAP) Pulse Ox O2 Delivery O2 Flow Rate FiO2 02/02/20 08:35 117/62 02/02/20 08:10 76 02/02/20 08:00 Trach Collar 10.0 02/02/20 08:00 10.0 30 02/02/20 08:00 97.7 70 23 117/62 (80) 94 02/02/20 07:20 98 Trach Collar 8.0 30 02/02/20 04:38 98.2 02/02/20 04:00 97.8 74 18 114/62 (79) 100 02/02/20 04:00 6.0 30 02/02/20 03:31 65 02/02/20 00:45 98 Trach Collar 8.0 30 02/02/20 00:00 98.2 67 20 110/68 (82) 100 02/01/20 21:00 Trach Collar 10.0 02/01/20 20:32 107/63 02/01/20 20:00 89 02/01/20 20:00 98.7 82 20 107/63 (78) 100 02/01/20 20:00 6.0 30 02/01/20 19:01 98 Trach Collar 8.0 30 02/01/20 16:00 98.0 85 18 116/61 (79) 100 02/01/20 16:00 6.0 30 02/01/20 16:00 70 02/01/20 16:00 Trach Collar 6.0 02/01/20 13:09 98 Trach Collar 8.0 30 02/01/20 12:00 66 02/01/20 12:00 6.0 30 02/01/20 12:00 Trach Collar 6.0 02/01/20 12:00 98.2 67 18 118/71 (87) 97 Intake and Output 02/01/20 02/02/20 19:00 07:00 Intake Total 1200 ml Balance 1200 ml Intake Oral 1200 ml # Voids 6 1 Laboratory Tests 02/01/20 13:25: White Blood Count 7.9, Red Blood Count 4.79, Hemoglobin 13.9L, Hematocrit 42.5, Mean Corpuscular Volume 89, Mean Corpuscular Hemoglobin 28.9, Mean Corpuscular Hemoglobin Concent 32.6, Red Cell Distribution Width 13.9, Platelet Count 201, Mean Platelet Volume 9.4, Neutrophils (%) (Auto) 57.0, Lymphocytes (%) (Auto) 25.9, Monocytes (%) (Auto) 11.1H, Eosinophils (%) (Auto) 5.1H, Basophils (%) ( Auto) 0.8, Sodium Level 140, Potassium Level 3.8, Chloride Level 103, Carbon Dioxide Level 33H, Anion Gap 4L, Blood Urea Nitrogen 9, Creatinine 0.7, Estimat Glomerular Filtration Rate > 60, Glucose Level 110H, Calcium Level 9.2 Height (Feet): 5 Height (Inches): 9.00 Weight (Pounds): 490 General Appearance: alert EENT: normal ENT inspection Neck: supple Cardiovascular: normal rate Respiratory/Chest: decreased breath sounds Abdomen: normal bowel sounds, non tender, soft Extremities: non-tender Mathew Singleton MD Feb 02, 2020 10:34
--- NOTE | 2020-02-02 11:23 | Pulmonolgy Critical Care Note ---
Critical Care - Asmt/Plan Problems: (1) Acute on chronic respiratory failure (2) Nosocomial pneumonia (3) COPD (chronic obstructive pulmonary disease) (4) Pulmonary edema (5) Morbid obesity (6) Hx of seizure disorder Respiratory: monitor respiratory rate, adjust FIO2, CXR Cardiac: continue to monitor HR/BP Renal: F/U I&O Infectious Disease: check cultures, continue antibiotics Gastrointestinal: continue feedings/current rate Endocrine: monitor blood sugar, continue sliding scale insulin Hematologic: monitor H/H, transfuse if hgb<8.5 Neurologic: PRN Ativan, keep patient comfortable Prophylaxis: Protonix, Heparin Disposition: keep in ICU Notes Reviewed: glazier supervisor, renal Discussed with: nurses, consultants, case management assistantit risk and assurance manager - Objective Last 24 Hour Vital Signs Date Time Temp Pulse Resp B/P (MAP) Pulse Ox O2 Delivery O2 Flow Rate FiO2 02/02/20 08:35 117/62 02/02/20 08:10 76 02/02/20 08:00 Trach Collar 10.0 02/02/20 08:00 10.0 30 02/02/20 08:00 97.7 70 23 117/62 (80) 94 02/02/20 07:20 98 Trach Collar 8.0 30 02/02/20 04:38 98.2 02/02/20 04:00 97.8 74 18 114/62 (79) 100 02/02/20 04:00 6.0 30 02/02/20 03:31 65 02/02/20 00:45 98 Trach Collar 8.0 30 02/02/20 00:00 98.2 67 20 110/68 (82) 100 02/01/20 21:00 Trach Collar 10.0 02/01/20 20:32 107/63 02/01/20 20:00 89 02/01/20 20:00 98.7 82 20 107/63 (78) 100 02/01/20 20:00 6.0 30 02/01/20 19:01 98 Trach Collar 8.0 30 02/01/20 16:00 98.0 85 18 116/61 (79) 100 02/01/20 16:00 6.0 30 02/01/20 16:00 70 02/01/20 16:00 Trach Collar 6.0 02/01/20 13:09 98 Trach Collar 8.0 30 02/01/20 12:00 66 02/01/20 12:00 6.0 30 02/01/20 12:00 Trach Collar 6.0 02/01/20 12:00 98.2 67 18 118/71 (87) 97 Status: awake Condition: critical Neck: full ROM Lungs: chest wall tender Heart: HR/BP stable Abdomen: soft Extremities: no C/C/E Critical Care - Subjective ROS Limited/Unobtainable: No Condition: critical EKG Rhythm: Sinus Rhythm FI02: 30 Vent Support Breath Rate: 14 Vent Support Mode: AC Vent Tidal Volume: 600 Sputum Amount: Small PEEP: 0.0 PIP: 18 I&O: Intake and Output 02/01/20 02/02/20 19:00 07:00 Intake Total 1200 ml Balance 1200 ml Intake Oral 1200 ml # Voids 6 1 Labs: Laboratory Tests Test 02/01/20 13:25 White Blood Count 7.9 K/UL (4.8-10.8) Red Blood Count 4.79 M/UL (4.70-6.10) Hemoglobin 13.9 G/DL (14.2-18.0) L Hematocrit 42.5 % (42.0-52.0) Mean Corpuscular Volume 89 FL (80-99) Mean Corpuscular Hemoglobin 28.9 PG (27.0-31.0) Mean Corpuscular Hemoglobin Concent 32.6 G/DL (32.0-36.0) Red Cell Distribution Width 13.9 % (11.6-14.8) Platelet Count 201 K/UL (150-450) Mean Platelet Volume 9.4 FL (6.5-10.1) Neutrophils (%) (Auto) 57.0 % (45.0-75.0) Lymphocytes (%) (Auto) 25.9 % (20.0-45.0) Monocytes (%) (Auto) 11.1 % (1.0-10.0) H Eosinophils (%) (Auto) 5.1 % (0.0-3.0) H Basophils (%) (Auto) 0.8 % (0.0-2.0) Sodium Level 140 MMOL/L (136-145) Potassium Level 3.8 MMOL/L (3.5-5.1) Chloride Level 103 MMOL/L (98-107) Carbon Dioxide Level 33 MMOL/L (21-32) H Anion Gap 4 mmol/L (5-15) L Blood Urea Nitrogen 9 mg/dL (7-18) Creatinine 0.7 MG/DL (0.55-1.30) Estimat Glomerular Filtration Rate > 60 mL/min (>60) Glucose Level 110 MG/DL (74-106) H Calcium Level 9.2 MG/DL (8.5-10.1) Michael Lombardo MD Feb 02, 2020 11:23
--- NOTE | 2020-02-02 11:25 | Infectious Diseases Prog Note ---
Assessment/Plan Assessment/Plan ASSESSMENT: The patient is a 49-year-old male with: Low-grade fever, sp Leukocytosis., sp Aspiration pneumonia, Sp Rx - SC: nl krzysztof -01/31 CXR: Suspected mild pulmonary vascular congestion. Correlate clinically History of seizure disorder. COPD. Bipolar disorder. Depression. Atrial fibrillation PLAN: monitor pt off of AB Rx 01/29 Sp Levaquin and Flagyl day # 05/31 Monitor CBC Monitor BMP. Monitor chest x-ray Subjective Allergies: Coded Allergies: MILK (Verified Allergy, Mild, 01/29/20) FISH DERIVED (Verified Allergy, Unknown, 01/23/20) PENICILLINS (Verified Allergy, Unknown, 01/23/20) SULFAMETHOXAZOLE (Verified Allergy, Unknown, 01/23/20) TRIMETHOPRIM (Verified Allergy, Unknown, 01/23/20) Subjective no acute event occasional cough Objective Vital Signs Last 24 Hour Vital Signs Date Time Temp Pulse Resp B/P (MAP) Pulse Ox O2 Delivery O2 Flow Rate FiO2 02/02/20 08:35 117/62 02/02/20 08:10 76 02/02/20 08:00 Trach Collar 10.0 02/02/20 08:00 10.0 30 02/02/20 08:00 97.7 70 23 117/62 (80) 94 02/02/20 07:20 98 Trach Collar 8.0 30 02/02/20 04:38 98.2 02/02/20 04:00 97.8 74 18 114/62 (79) 100 02/02/20 04:00 6.0 30 02/02/20 03:31 65 02/02/20 00:45 98 Trach Collar 8.0 30 02/02/20 00:00 98.2 67 20 110/68 (82) 100 02/01/20 21:00 Trach Collar 10.0 02/01/20 20:32 107/63 02/01/20 20:00 89 02/01/20 20:00 98.7 82 20 107/63 (78) 100 02/01/20 20:00 6.0 30 02/01/20 19:01 98 Trach Collar 8.0 30 02/01/20 16:00 98.0 85 18 116/61 (79) 100 02/01/20 16:00 6.0 30 02/01/20 16:00 70 02/01/20 16:00 Trach Collar 6.0 02/01/20 13:09 98 Trach Collar 8.0 30 02/01/20 12:00 66 02/01/20 12:00 6.0 30 02/01/20 12:00 Trach Collar 6.0 02/01/20 12:00 98.2 67 18 118/71 (87) 97 Height (Feet): 5 Height (Inches): 9.00 Weight (Pounds): 490 HEENT: mucous membranes moist Respiratory/Chest: normal breath sounds Cardiovascular: regular rhythm Abdomen: no organomegaly Laboratory Tests Test 02/01/20 13:25 White Blood Count 7.9 K/UL (4.8-10.8) Red Blood Count 4.79 M/UL (4.70-6.10) Hemoglobin 13.9 G/DL (14.2-18.0) L Hematocrit 42.5 % (42.0-52.0) Mean Corpuscular Volume 89 FL (80-99) Mean Corpuscular Hemoglobin 28.9 PG (27.0-31.0) Mean Corpuscular Hemoglobin Concent 32.6 G/DL (32.0-36.0) Red Cell Distribution Width 13.9 % (11.6-14.8) Platelet Count 201 K/UL (150-450) Mean Platelet Volume 9.4 FL (6.5-10.1) Neutrophils (%) (Auto) 57.0 % (45.0-75.0) Lymphocytes (%) (Auto) 25.9 % (20.0-45.0) Monocytes (%) (Auto) 11.1 % (1.0-10.0) H Eosinophils (%) (Auto) 5.1 % (0.0-3.0) H Basophils (%) (Auto) 0.8 % (0.0-2.0) Sodium Level 140 MMOL/L (136-145) Potassium Level 3.8 MMOL/L (3.5-5.1) Chloride Level 103 MMOL/L (98-107) Carbon Dioxide Level 33 MMOL/L (21-32) H Anion Gap 4 mmol/L (5-15) L Blood Urea Nitrogen 9 mg/dL (7-18) Creatinine 0.7 MG/DL (0.55-1.30) Estimat Glomerular Filtration Rate > 60 mL/min (>60) Glucose Level 110 MG/DL (74-106) H Calcium Level 9.2 MG/DL (8.5-10.1) Current Medications Medications (Trade) Dose Ordered Sig/Phuong Route PRN Reason Start Time Stop Time Status Last Admin Dose Admin Albuterol/ Ipratropium (Albuterol/ Ipratropium) 3 ml Q4H PRN HHN sob 01/30/20 09:30 02/04/20 09:29 Aspirin (ASA) 81 mg DAILY ORAL 01/26/20 09:00 02/23/20 08:59 02/02/20 08:37 Atorvastatin Calcium (Lipitor) 10 mg BEDTIME ORAL 01/25/20 21:00 02/23/20 20:59 02/01/20 20:31 Diphenhydramine HCl (Benadryl) 50 mg Q4H PRN IVP Itching 01/31/20 03:30 03/01/20 03:29 02/02/20 01:10 Enalapril Maleate (Vasotec) 5 mg EVERY 12 HOURS ORAL 01/25/20 21:00 02/23/20 08:59 02/02/20 08:35 Guaifenesin/ Dextromethorphan (Robitussin DM Syrup) 10 ml Q4H PRN ORAL For Cough 01/25/20 16:30 02/23/20 16:29 Heparin Sodium (Porcine) (Heparin 5000 units/ml) 5,000 units EVERY 12 HOURS SUBQ 01/25/20 21:00 02/23/20 20:59 02/02/20 08:35 Hydromorphone HCl (Dilaudid) 1 mg Q6H PRN IVP Severe Pain (Pain Scale 7-10) 01/29/20 14:30 02/05/20 14:29 02/02/20 10:55 Levetiracetam (Keppra) 750 mg Q12HR ORAL 01/29/20 21:00 02/28/20 20:59 02/02/20 08:34 Morphine Sulfate (Morphine Sulfate) 4 mg Q4H PRN IVP Moderate Pain (Pain Scale 4-6) 01/29/20 14:30 02/02/20 19:44 02/02/20 08:29 Ondansetron HCl (Zofran) 4 mg Q6H PRN IVP Nausea & Vomiting 01/25/20 17:26 02/23/20 17:25 Pantoprazole (Protonix) 40 mg DAILY ORAL 02/01/20 09:00 03/02/20 08:59 02/02/20 08:37 Theophylline (Austen-Dur) 100 mg BID ORAL 01/25/20 18:00 02/23/20 17:59 02/02/20 08:37 Trazodone HCl (Desyrel) 50 mg BEDTIME ORAL 01/25/20 21:00 02/23/20 20:59 02/01/20 20:32 Charles Snyder MD Feb 02, 2020 11:25
[2020-02-02 12:00] VITALS: BP 107/55
[2020-02-02] MEDS ORDERED: Sennosides 8.6mg tab ORAL PRN (15:15)
[2020-02-02] MEDS ORDERED: Miralax 17gm pkt ORAL PRN (15:15)
--- NOTE | 2020-02-02 15:18 | NUR ---
NURSE NOTES: Reported constipation to Dr. Lombardo, no PRN meds available. Received order for PRN miralax and senokot, noted and carried out.
[2020-02-02 16:00] VITALS: BP 106/65
--- NOTE | 2020-02-02 16:25 | NUR ---
NURSE NOTES: Report given to EMETERIO Garza piping supervisor at [facility]. Pickup scheduled for 17:00. Nurse Cecilio to receive patient upon arrival to [facility].
--- NOTE | 2020-02-02 18:02 | NUR ---
NURSE NOTES: Received phone call from Cecilio at [facility]. Per Cecilio, his DON stated that patient discharge needs to be withheld d/t lack of bariatric bed which was supposed to be ordered but was not ordered.
--- NOTE | 2020-02-02 19:03 | NUR ---
HAND-OFF: Report given to Kirk Tijerina RN.
--- NOTE | 2020-02-02 19:04 | NUR ---
NURSE NOTES: Received patient from EMETERIO Phan. Patient is aaox3, talkative, vss, and no acute distress observed. Patient is cooperative, clean and on neurosurgical nurse practitioner. Trach collar Fio2 of 30% O2 at 10 to 11L. Skin issues noted, IV site on his right hand 22g. Bed at its lowest position, call light in reach and x3 bed rails are up. Will continue to monitor. Plan to be discharged to [facility] as soon as bariatric bed is available.
[2020-02-02 20:00] VITALS: BP 110/55
[2020-02-02] MEDS: TraZODone 50mg tab ORAL SCH (21:38)
[2020-02-02] MEDS ORDERED: Tubing IV Secondary IV ONE (22:17)
[2020-02-02] MEDS ORDERED: NS 275ml ONE (22:17)
[2020-02-02] MEDS ORDERED: 1/2 NS 1000ml IV ONE (22:17)
[2020-02-03] VITALS: BP 101/55
[2020-02-03] MEDS: HYDROmorphone 1mg/ml Carpuject IVP PRN ×4 (00:02→18:34)
[2020-02-03] MEDS: DiphenhydrAMINE 50mg/ml Inj IVP PRN ×2 (01:08→20:45)
--- NOTE | 2020-02-03 02:17 | NUR ---
NURSE NOTES: Patient resting well, but not sleeping. No complaints at this time.
[2020-02-03 04:00] VITALS: BP 100/58
--- NOTE | 2020-02-03 04:54 | NUR ---
NURSE NOTES: Educated patient on importance of bowel movement with opioid use. Patient stated that he understood.
--- NOTE | 2020-02-03 07:10 | NUR ---
HAND-OFF: Report given to EMETERIO Singleton.
[2020-02-03] MEDS ORDERED: Miralax 17gm pkt ORAL PRN (07:18)
[2020-02-03] MEDS ORDERED: Sennosides 8.6mg tab ORAL PRN (07:18)
--- NOTE | 2020-02-03 07:25 | NUR ---
NURSE NOTES: Received report from EMETERIO Shields. Patient is resting in bed, in stable condition. On T-piece at ordered settings, no s/sx of SOB, breathing is even and unlabored. Patient refused breakfast at this time, offered PMV. Will ask again later. RT made aware. Denies any presence of pain or discomfort at this time. Bed is in lowest position, brakes engaged. Call light is kept within easy reach. Will continue to monitor patient.
[2020-02-03 08:00] VITALS: BP 106/55
--- NOTE | 2020-02-03 08:50 | General Progress Note ---
Assessment/Plan Assessment/Plan: 1. History of morbid obesity. 2. Hypertension. 3. Chronic respiratory failure with a trach. 4. Psychiatric disorder. 5. Intermittent atrial fibrillation. 6. Anemia 7. ? GIB ppi stable H&H no obvious GIB eating well fu labs Subjective ROS Limited/Unobtainable: Yes Allergies: Coded Allergies: MILK (Verified Allergy, Mild, 01/29/20) FISH DERIVED (Verified Allergy, Unknown, 01/23/20) PENICILLINS (Verified Allergy, Unknown, 01/23/20) SULFAMETHOXAZOLE (Verified Allergy, Unknown, 01/23/20) TRIMETHOPRIM (Verified Allergy, Unknown, 01/23/20) Objective Last 24 Hour Vital Signs Date Time Temp Pulse Resp B/P (MAP) Pulse Ox O2 Delivery O2 Flow Rate FiO2 02/03/20 07:44 70 02/03/20 07:34 97 Trach Collar 8.0 30 02/03/20 06:56 98.3 02/03/20 04:00 Trach Collar 6.0 02/03/20 04:00 98.3 67 20 100/58 (72) 98 02/03/20 04:00 6.0 30 02/03/20 03:31 71 02/03/20 01:32 98 Trach Collar 8.0 30 02/03/20 00:00 Trach Collar 6.0 02/03/20 00:00 98.8 85 20 101/55 (70) 94 02/02/20 23:28 74 02/02/20 21:29 74 02/02/20 20:54 110/55 02/02/20 20:00 Trach Collar 6.0 02/02/20 20:00 98.0 76 20 110/55 (73) 94 02/02/20 20:00 6.0 30 02/02/20 18:50 99 Trach Collar 8.0 30 02/02/20 16:00 6.0 30 02/02/20 16:00 98.0 85 24 106/65 (79) 99 02/02/20 16:00 Trach Collar 6.0 02/02/20 15:31 65 02/02/20 15:29 97.7 02/02/20 13:00 97 Trach Collar 8.0 30 02/02/20 12:00 Trach Collar 6.0 02/02/20 12:00 97.7 71 22 107/55 (72) 97 02/02/20 12:00 6.0 30 02/02/20 11:52 71 Intake and Output 02/02/20 02/03/20 19:00 07:00 Intake Total 720 ml 1000 ml Balance 720 ml 1000 ml Intake Oral 720 ml 1000 ml # Voids 3 1 Height (Feet): 5 Height (Inches): 9.00 Weight (Pounds): 490 General Appearance: alert EENT: normal ENT inspection Neck: supple Cardiovascular: normal rate Respiratory/Chest: decreased breath sounds Abdomen: normal bowel sounds, non tender, soft Extremities: non-tender Mathew Singleton MD Feb 03, 2020 08:50
[2020-02-03] MEDS: Enalapril 5mg tab ORAL SCH ×2 (08:58→20:45)
[2020-02-03] MEDS: Heparin 5000 units/ml inj SUBQ SCH ×2 (08:59→20:46)
[2020-02-03] MEDS: levETIRAcetam 500mg/5ml Liquid ORAL SCH ×2 (09:34→20:44)
[2020-02-03] MEDS: Theophylline ER 100mg ORAL SCH ×2 (09:35→17:23)
[2020-02-03] MEDS: Aspirin Baby 81mg ORAL SCH (09:35)
--- NOTE | 2020-02-03 09:57 | Pulmonolgy Critical Care Note ---
Critical Care - Asmt/Plan Problems: (1) Acute on chronic respiratory failure (2) Nosocomial pneumonia (3) COPD (chronic obstructive pulmonary disease) (4) Pulmonary edema (5) Morbid obesity (6) Hx of seizure disorder Respiratory: monitor respiratory rate, adjust FIO2 Cardiac: continue to monitor HR/BP Renal: F/U I&O, check electrolytes Infectious Disease: check cultures Gastrointestinal: continue feedings/current rate Endocrine: monitor blood sugar, continue sliding scale insulin Hematologic: monitor H/H, transfuse if hgb<8.5 Neurologic: PRN Ativan, keep patient comfortable Prophylaxis: Protonix Time Spent (Minutes): 40 Notes Reviewed: cardio, renal Discussed with: nurses, consultants, transplant case manageresthetician and manager medical spa - Objective Last 24 Hour Vital Signs Date Time Temp Pulse Resp B/P (MAP) Pulse Ox O2 Delivery O2 Flow Rate FiO2 02/03/20 08:58 106/55 02/03/20 08:00 97.7 68 20 106/55 (72) 96 02/03/20 08:00 Trach Collar 6.0 02/03/20 08:00 6.0 30 02/03/20 07:44 70 02/03/20 07:34 97 Trach Collar 8.0 30 02/03/20 06:56 98.3 02/03/20 04:00 Trach Collar 6.0 02/03/20 04:00 98.3 67 20 100/58 (72) 98 02/03/20 04:00 6.0 30 02/03/20 03:31 71 02/03/20 01:32 98 Trach Collar 8.0 30 02/03/20 00:00 Trach Collar 6.0 02/03/20 00:00 98.8 85 20 101/55 (70) 94 02/02/20 23:28 74 02/02/20 21:29 74 02/02/20 20:54 110/55 02/02/20 20:00 Trach Collar 6.0 02/02/20 20:00 98.0 76 20 110/55 (73) 94 02/02/20 20:00 6.0 30 02/02/20 18:50 99 Trach Collar 8.0 30 02/02/20 16:00 6.0 30 02/02/20 16:00 98.0 85 24 106/65 (79) 99 02/02/20 16:00 Trach Collar 6.0 02/02/20 15:31 65 02/02/20 15:29 97.7 02/02/20 13:00 97 Trach Collar 8.0 30 02/02/20 12:00 Trach Collar 6.0 02/02/20 12:00 97.7 71 22 107/55 (72) 97 02/02/20 12:00 6.0 30 02/02/20 11:52 71 Status: awake Condition: grave HEENT: atraumatic Lungs: chest wall tender Heart: HR/BP stable Extremities: no C/C/E Critical Care - Subjective ROS Limited/Unobtainable: Yes Condition: critical EKG Rhythm: Sinus Rhythm FI02: 30 Vent Support Breath Rate: 14 Vent Support Mode: AC Vent Tidal Volume: 600 Sputum Amount: Small PEEP: 0.0 PIP: 18 I&O: Intake and Output 02/02/20 02/03/20 19:00 07:00 Intake Total 720 ml 1000 ml Balance 720 ml 1000 ml Intake Oral 720 ml 1000 ml # Voids 3 1 Michael Lombardo MD Feb 03, 2020 09:57
--- NOTE | 2020-02-03 09:59 | NUR ---
NURSE NOTES: Dr. Lombardo seen and examined patient at bedside. Patient informed Dr. Lombardo that they have not had a bowel movement. This nurse informed Dr. Lombardo that patient has already received Miralax PRN and Senokot PRN x 2 and patient has not yet had a BM. Dr. Lombardo acknowledged and ordered Lactulose 30 gm PO x 1 and Colace 100 mg PO x 1. Orders entered, noted, and carried out. Will continue to monitor patient.
[2020-02-03] MEDS ORDERED: Docusate 100mg cap ORAL SCH (10:00)
[2020-02-03] MEDS ORDERED: Lactulose 20gm/30ml UDC ORAL SCH (10:00)
--- NOTE | 2020-02-03 10:28 | Infectious Diseases Prog Note ---
Assessment/Plan Assessment/Plan ASSESSMENT: The patient is a 49-year-old male with: Low-grade fever, sp Leukocytosis., sp Aspiration pneumonia, Sp Rx - SC: nl krzysztof -01/31 CXR: Suspected mild pulmonary vascular congestion. Correlate clinically History of seizure disorder. COPD. Bipolar disorder. Depression. Atrial fibrillation PLAN: monitor pt off of AB Rx 01/29 Sp Levaquin and Flagyl day # 05/31 Monitor CBC Monitor BMP. Monitor chest x-ray Subjective Allergies: Coded Allergies: MILK (Verified Allergy, Mild, 01/29/20) FISH DERIVED (Verified Allergy, Unknown, 01/23/20) PENICILLINS (Verified Allergy, Unknown, 01/23/20) SULFAMETHOXAZOLE (Verified Allergy, Unknown, 01/23/20) TRIMETHOPRIM (Verified Allergy, Unknown, 01/23/20) Subjective constipation x 1 wk Objective Vital Signs Last 24 Hour Vital Signs Date Time Temp Pulse Resp B/P (MAP) Pulse Ox O2 Delivery O2 Flow Rate FiO2 02/03/20 08:58 106/55 02/03/20 08:00 97.7 68 20 106/55 (72) 96 02/03/20 08:00 Trach Collar 6.0 02/03/20 08:00 6.0 30 02/03/20 07:44 70 02/03/20 07:34 97 Trach Collar 8.0 30 02/03/20 06:56 98.3 02/03/20 04:00 Trach Collar 6.0 02/03/20 04:00 98.3 67 20 100/58 (72) 98 02/03/20 04:00 6.0 30 02/03/20 03:31 71 02/03/20 01:32 98 Trach Collar 8.0 30 02/03/20 00:00 Trach Collar 6.0 02/03/20 00:00 98.8 85 20 101/55 (70) 94 02/02/20 23:28 74 02/02/20 21:29 74 02/02/20 20:54 110/55 02/02/20 20:00 Trach Collar 6.0 02/02/20 20:00 98.0 76 20 110/55 (73) 94 02/02/20 20:00 6.0 30 02/02/20 18:50 99 Trach Collar 8.0 30 02/02/20 16:00 6.0 30 02/02/20 16:00 98.0 85 24 106/65 (79) 99 02/02/20 16:00 Trach Collar 6.0 02/02/20 15:31 65 02/02/20 15:29 97.7 02/02/20 13:00 97 Trach Collar 8.0 30 02/02/20 12:00 Trach Collar 6.0 02/02/20 12:00 97.7 71 22 107/55 (72) 97 02/02/20 12:00 6.0 30 02/02/20 11:52 71 Height (Feet): 5 Height (Inches): 9.00 Weight (Pounds): 490 HEENT: mucous membranes moist Respiratory/Chest: no respiratory distress Cardiovascular: regularly irregular Abdomen: non distended Current Medications Medications (Trade) Dose Ordered Sig/Phuong Route PRN Reason Start Time Stop Time Status Last Admin Dose Admin Albuterol/ Ipratropium (Albuterol/ Ipratropium) 3 ml Q4H PRN HHN sob 01/30/20 09:30 02/04/20 09:29 Aspirin (ASA) 81 mg DAILY ORAL 01/26/20 09:00 02/23/20 08:59 02/03/20 09:35 Atorvastatin Calcium (Lipitor) 10 mg BEDTIME ORAL 01/25/20 21:00 02/23/20 20:59 02/02/20 20:53 Diphenhydramine HCl (Benadryl) 50 mg Q4H PRN IVP Itching 01/31/20 03:30 03/01/20 03:29 02/03/20 01:08 Docusate Sodium (Colace) 100 mg ONCE ORAL 02/03/20 10:00 02/03/20 11:00 02/03/20 10:16 Enalapril Maleate (Vasotec) 5 mg EVERY 12 HOURS ORAL 01/25/20 21:00 02/23/20 08:59 02/02/20 20:54 Guaifenesin/ Dextromethorphan (Robitussin DM Syrup) 10 ml Q4H PRN ORAL For Cough 01/25/20 16:30 02/23/20 16:29 Heparin Sodium (Porcine) (Heparin 5000 units/ml) 5,000 units EVERY 12 HOURS SUBQ 01/25/20 21:00 02/23/20 20:59 02/02/20 20:55 Hydromorphone HCl (Dilaudid) 1 mg Q6H PRN IVP Severe Pain (Pain Scale 7-10) 01/29/20 14:30 02/05/20 14:29 02/03/20 06:26 Lactulose (Cephulac) 30 gm ONCE ORAL 02/03/20 10:00 02/03/20 11:00 02/03/20 10:17 Levetiracetam (Keppra) 750 mg Q12HR ORAL 01/29/20 21:00 02/28/20 20:59 02/03/20 09:34 Ondansetron HCl (Zofran) 4 mg Q6H PRN IVP Nausea & Vomiting 01/25/20 17:26 02/23/20 17:25 Pantoprazole (Protonix) 40 mg DAILY ORAL 02/01/20 09:00 03/02/20 08:59 02/03/20 09:34 Polyethylene Glycol (Miralax) 17 gm DAILYPRN PRN ORAL Constipation 02/03/20 07:18 03/04/20 07:17 Sennosides (Senokot) 8.6 mg DAILYPRN PRN ORAL Constipation 02/03/20 07:18 03/04/20 07:17 02/03/20 09:35 Theophylline (Austen-Dur) 100 mg BID ORAL 01/25/20 18:00 02/23/20 17:59 02/03/20 09:35 Trazodone HCl (Desyrel) 50 mg BEDTIME ORAL 01/25/20 21:00 02/23/20 20:59 02/02/20 21:38 Charles Snyder MD Feb 03, 2020 10:28
--- NOTE | 2020-02-03 11:25 | NUR ---
PT NOTE Received MD order for PT evaluation. Attempted to see patient for PT, patient declining to participate, c/o being "too tired". Mani STORM notified, will follow up tomorrow.
[2020-02-03 12:00] VITALS: BP 128/72
--- NOTE | 2020-02-03 12:49 | NUR ---
Placed pt on PMV, pt tolerating well. RN aware. Addendum: 02/03/20 at 1251 by DORIAN CASTANEDA RT Amended: Links added.
[2020-02-03] MEDS ORDERED: NS 275ml ONE (14:55)
--- NOTE | 2020-02-03 15:30 | NUR ---
NURSE NOTES: Spoke with [facility] home health care case manager regarding still pending discharge for patient. Per CM informed this nurse, SNF still has not received bariatric bed in facility. Possible discharge unlikely today. Noted. Charge nurse made aware. Will continue to monitor patient.
[2020-02-03 16:00] VITALS: BP 129/68
--- NOTE | 2020-02-03 19:15 | NUR ---
NURSE NOTES: Received report from EMETERIO Fernando. The patient is observed resting in the bed and remains alert and oriented x3-4. Pt receiving oxygen via trach collar with an O2 saturation of 95% noted without s/sx of respiratory distress. Pt noted to be SR on tele monitor with a current HR of 82 noted. No s/sx of acute distress noted. Pt assessed for pain, in which he currently denies. R wrist 24g IV catheter noted which is noted to be occluded; subsequently removed. Will place new IV catheter. Pt provided education on safety, seizure, fall and aspiration precautions. Pt agrees to use call light for needs. VS taken and remain stable. Allergies confirmed with patient at beside and diagnostics reviewed. Pt remains resting in bed; bed remains in lowest position with safety wheels engaged, call light within reach, side rails up x3 and bed alarm activated. Will continue plan of care. Will continue to monitor.
--- NOTE | 2020-02-03 19:26 | NUR ---
HAND-OFF: Report given to EMETERIO Gonzalez.
[2020-02-03 20:00] VITALS: BP 93/59
--- NOTE | 2020-02-03 20:30 | NUR ---
NURSE NOTES: R wrist 22g IV catheter placed on first attempt without incident. IV catheter remains asymptomatic, intact and patent. Currently running TKO. Pt remains resting in bed; bed remains in lowest position with safety wheels engaged, call light within reach, side rails up x3 and bed alarm activated. Will continue plan of care. Will continue to monitor.
[2020-02-03] MEDS: TraZODone 50mg tab ORAL SCH (20:44)
[2020-02-03] MEDS ORDERED: Albuterol/Ipratropium 3ml neb HHN PRN (21:30)
--- NOTE | 2020-02-03 21:48 | NUR ---
NURSE NOTES: Pt provided with a partial bed bath (per pt request not to give a full bed bath) and linen change. Pt refused oral care. Pt remains resting in bed; bed remains in lowest position with safety wheels engaged, call light within reach, side rails up x3 and bed alarm activated. Will continue plan of care. Will continue to monitor.
--- NOTE | 2020-02-03 23:50 | NUR ---
NURSE NOTES: Dr Herrera present at bedside to assess pt. Dr Herrera made aware that placement is pending talha bed.
[2020-02-04] VITALS: BP 109/60
[2020-02-04] MEDS: HYDROmorphone 1mg/ml Carpuject IVP PRN ×4 (00:37→20:15)
--- NOTE | 2020-02-04 00:45 | NUR ---
NURSE NOTES: Pt c/o right knee pain rated 9/10 and notes pain characteristics of throbbing, sharp and pressure. Position change and pillow support provided. Pt requests pain medication. VS taken and remain stable. Dilaudid administered as ordered. Will reassess. Will continue to monitor.
--- NOTE | 2020-02-04 03:15 | Progress Note ---
DATE: 02/03/2020 CARDIOLOGY PROGRESS NOTE SUBJECTIVE: The patient remains on trach collar. Blood pressure is stable. Monitored rhythm, sinus. No distress. Thin secretions. OBJECTIVE: VITAL SIGNS: Blood pressure 106/55, heart rate 68, and respiratory rate 20. LUNGS: With better breath sounds. Few rhonchi. CARDIAC: Regular rhythm and rate. Normal S1 and S2. ABDOMEN: Soft and obese. EXTREMITIES: There is 1+ dependent edema. IMPRESSION: 1. Healthcare-acquired pneumonia. 2. Acute on chronic respiratory failure, on trach collar. 3. COPD. 4. Morbid obesity. 5. Hypertensive heart disease. 6. Acute on chronic diastolic congestive heart failure, clinically compensated. PLAN: 1. Plan of care in place. 2. Discharge planning in progress. Franky Stern M.D. DR: DVAID JOB#: [id number] CC:
[2020-02-04 04:00] VITALS: BP 107/58
--- NOTE | 2020-02-04 06:30 | Progress Note ---
DATE: 02/03/2020 SUBJECTIVE: The patient could not be discharged yesterday because the bariatric bed 00:28 in [facility] subacute unit did not arrive. PHYSICAL EXAMINATION: GENERAL: The patient is awake alert, afebrile, and hemodynamically stable. VITAL SIGNS: Blood pressure 93/59, pulse 82, respirations of 20, and temperature 98.4. HEENT: Eyes were normal. ENT, mucous membranes were moist and intact. NECK: Supple with no JVD without lymph nodes. Tracheostomy site is clean. LUNGS: Clear without rhonchi, rales, or wheezing. HEART: Normal sounds with regular beat. ABDOMEN: Soft and nontender with normal bowel sounds. EXTREMITIES: Warm without cyanosis, clubbing, or edema. LABORATORY AND DIAGNOSTIC DATA: Hemoglobin is 13.9, hematocrit 32.5, with MCV of 89, WBC of 7.9, and platelets 201,000. His BUN and creatinine are 9 and 0.7 respectively. Sodium is 140, potassium 3.8, chloride 103, CO2 33, his calcium is 9.2. IMPRESSION: The patient is in stable condition. Repeat laboratory tests will be done in a.m. The bed apparently will be at [facility] tomorrow. Efren Herrera M.D. DR: Jaylin JOB#: [id number] CC:
--- NOTE | 2020-02-04 07:10 | NUR ---
HAND-OFF: Report given to EMETERIO Mason. Pt remains stable at this time.
--- NOTE | 2020-02-04 07:15 | NUR ---
NURSE NOTES: RECEIVED BED SIDE REPORT FROM GABO SPEECH PROFESSOR OF HOTEL SUPPLIES SALESPERSON .PT AWAKE AND ALERT ORIENTED X4 DENIES PAIN OR SOB AT THIS TIME.PT WITH NILO ,DEVYN# 8 WELL SECURED AT MID LINE CONNECTED TO COLLAR FIO2 @ 30%,RENDERED TRACH CARE AND SX,D MOD AMOUNT OF THICK YELLOWISH SECRETIONS. PT ASSISTED WITH REPOSITIONING REFUSING TO HAVE AM CARE AT THIS TIME.H.L G# 24 ON [address] WRIST PATENT AND INTACT. FULL BODY ASSESSMENT DONE. WILL CONT TO MONITOR.
[2020-02-04 08:00] VITALS: BP 120/60
--- NOTE | 2020-02-04 08:45 | Discharge Summary ---
DATE OF ADMISSION: 01/23/2020 This is a third admission to [facility] of this 50-year-old patient because of acute respiratory distress. HISTORY OF PRESENT ILLNESS: Details of the event and circumstances that led the patient to be admitted to this medical unit can be found in the H and P. In brief, the patient is a resident of an extended care facility subacute unit where he has been in relatively stable condition. He is known to be respiratory dependent with tracheostomy, severe morbid obesity of near 400 pounds. He developed exacerbation of his COPD, was unable to be managed in the subacute unit. He was transferred to [facility] ER and was admitted. HOSPITAL COURSE: Upon admission, the patient underwent clinical, biological, and imaging studies. The clinical assessment revealed the patient has exacerbation of chronic obstructive pulmonary disease, congestive heart failure with troponin leak and sepsis. He was placed on ceftriaxone 1 g IV piggyback 24 hours, SHIRA inhibitor and given for his congestive heart failure. Pulmonary qm consultant, oracle security consultant, infectious disease qm consultant were called to assist in management of this case. Upon admission, the patient received intensive therapy, antibiotic and steroid therapy, progressively improved. The patient had a long list of food and medication and allergies which include allergy which is derived from penicillin, sulfonamide, and trimethoprim. In the last several days, the patient has been in the intensive care unit and was placed again on mechanical ventilation. His condition improved and he was transferred out to the cardiac observation unit. He continued to receive antibiotic therapy, respiratory therapy with steroid treatment for . Cardiology consulted as well. Over the last several days he was successfully weaned from the respirator and tolerated being on . The patient has a long list of diagnosis which required the patient to have this admission. The initial was acute hypercapnic respiratory failure superimposed on chronic obstructive pulmonary disease exacerbation and aspiration pneumonia. From cardiology point of view, the patient had troponin leak and it may be a silent acute myocardial infarction, pulmonary edema, and chronic congestive heart failure. He has normocytic anemia, morbid obesity, obstructive sleep apnea, hypertension, seizure disorder, hepatitis C, to be addressed during this admission. Finally, the patient is intermittently noncompliant which prolonged his clinical visit and prolonged his admission. He is now back to the extended care facility where a special bed was purchased to accommodate the patient. He will be seen in the facility 24 hours after discharge. Efren Herrera M.D. DR: Jaylin JOB#: [id number] CC:
[2020-02-04] MEDS: Theophylline ER 100mg ORAL SCH ×2 (09:03→18:05)
[2020-02-04] MEDS: Heparin 5000 units/ml inj SUBQ SCH ×2 (09:04→21:00)
[2020-02-04] MEDS: Enalapril 5mg tab ORAL SCH ×2 (09:05→21:00)
[2020-02-04] MEDS: Aspirin Baby 81mg ORAL SCH (09:05)
[2020-02-04] MEDS: levETIRAcetam 500mg/5ml Liquid ORAL SCH ×2 (09:06→21:00)
[2020-02-04] MEDS: DiphenhydrAMINE 50mg/ml Inj IVP PRN ×2 (09:15→15:46)
--- NOTE | 2020-02-04 10:18 | NUR ---
CASE MANAGEMENT: REVIEW 08/06/2020 SI:Healthcare-acquired pneumonia. VS: T 97.6 HR 78 RR 20 B/P 120/60 SATS 97% ON 8L/TPIECE FIO2 30 LABS: NO LABS TODAY IS:VASOTEC PO Q12H LIPITOR PO QHS SHARATH DUR PO BID ASA PO QD PROTONIX PO QD KEPPRA PO Q12H SDU
--- NOTE | 2020-02-04 10:22 | NUR ---
DISCHARGE PLANNING: NOTE F/U CALL PLACED TO [facility] REGARDING ACCEPTANCE AND DELIVERY OF DME
--- NOTE | 2020-02-04 11:27 | Pulmonolgy Critical Care Note ---
Critical Care - Asmt/Plan Problems: (1) Acute on chronic respiratory failure (2) Nosocomial pneumonia (3) COPD (chronic obstructive pulmonary disease) (4) Pulmonary edema (5) Morbid obesity (6) Hx of seizure disorder Respiratory: monitor respiratory rate, adjust FIO2, CXR Cardiac: continue to monitor HR/BP Renal: F/U I&O, keep IV fluid, check electrolytes Infectious Disease: check cultures, continue antibiotics Gastrointestinal: continue feedings/current rate Endocrine: monitor blood sugar, continue sliding scale insulin Hematologic: monitor H/H, transfuse if hgb<8.5 Neurologic: PRN Ativan, keep patient comfortable Affect: PRN ativan Prophylaxis: Heparin Time Spent (Minutes): 40 Notes Reviewed: production control coordinating clerk, renal Discussed with: nurses, consultants, trimming casercommunity arts centre manager - Objective Last 24 Hour Vital Signs Date Time Temp Pulse Resp B/P (MAP) Pulse Ox O2 Delivery O2 Flow Rate FiO2 02/04/20 09:05 120/60 02/04/20 08:30 98.2 02/04/20 08:00 73 02/04/20 08:00 6.0 30 02/04/20 08:00 97.6 78 20 120/60 (80) 97 02/04/20 08:00 Trach Collar 6.0 02/04/20 06:43 95 Trach Collar 8.0 30 02/04/20 04:00 6.0 30 02/04/20 04:00 Trach Collar 6.0 02/04/20 04:00 98.2 76 20 107/58 (74) 97 02/04/20 03:37 70 02/04/20 01:08 97 Trach Collar 8.0 30 02/04/20 00:00 98.9 80 20 109/60 (76) 98 02/04/20 00:00 Trach Collar 6.0 02/03/20 23:28 79 02/03/20 20:00 Trach Collar 6.0 02/03/20 20:00 6.0 30 02/03/20 20:00 98.4 82 20 93/59 (70) 95 02/03/20 19:06 89 02/03/20 18:55 97 Trach Collar 8.0 30 02/03/20 16:00 98.6 79 20 129/68 (88) 99 02/03/20 16:00 Trach Collar 6.0 02/03/20 16:00 6.0 30 02/03/20 16:00 84 02/03/20 12:25 95 Trach Collar 8.0 30 02/03/20 12:00 Trach Collar 6.0 02/03/20 12:00 6.0 30 02/03/20 12:00 97.7 79 20 128/72 (90) 99 02/03/20 11:43 75 Status: awake Condition: improving HEENT: atraumatic Neck: full ROM Lungs: rales, rhonchi Heart: HR/BP stable Abdomen: soft, non-tender Extremities: no C/C/E Decubiti: location Critical Care - Subjective Condition: critical EKG Rhythm: Sinus Rhythm FI02: 30 Vent Support Breath Rate: 14 Vent Support Mode: AC Vent Tidal Volume: 600 Sputum Amount: Small PEEP: 0.0 PIP: 18 I&O: Intake and Output 02/03/20 02/04/20 19:00 07:00 Intake Total 500 ml 320 ml Balance 500 ml 320 ml Intake Oral 500 ml 320 ml # Voids 2 3 # Bowel Movements 1 Michael Lombardo MD Feb 04, 2020 11:27
--- NOTE | 2020-02-04 11:34 | General Progress Note ---
Assessment/Plan Assessment/Plan: 1. History of morbid obesity. 2. Hypertension. 3. Chronic respiratory failure with a trach. 4. Psychiatric disorder. 5. Intermittent atrial fibrillation. 6. Anemia 7. ? GIB ppi stable H&H no obvious GIB eating well fu labs Subjective ROS Limited/Unobtainable: No Allergies: Coded Allergies: MILK (Verified Allergy, Mild, 01/29/20) FISH DERIVED (Verified Allergy, Unknown, 01/23/20) PENICILLINS (Verified Allergy, Unknown, 01/23/20) SULFAMETHOXAZOLE (Verified Allergy, Unknown, 01/23/20) TRIMETHOPRIM (Verified Allergy, Unknown, 01/23/20) Objective Last 24 Hour Vital Signs Date Time Temp Pulse Resp B/P (MAP) Pulse Ox O2 Delivery O2 Flow Rate FiO2 02/04/20 09:05 120/60 02/04/20 08:30 98.2 02/04/20 08:00 73 02/04/20 08:00 6.0 30 02/04/20 08:00 97.6 78 20 120/60 (80) 97 02/04/20 08:00 Trach Collar 6.0 02/04/20 06:43 95 Trach Collar 8.0 30 02/04/20 04:00 6.0 30 02/04/20 04:00 Trach Collar 6.0 02/04/20 04:00 98.2 76 20 107/58 (74) 97 02/04/20 03:37 70 02/04/20 01:08 97 Trach Collar 8.0 30 02/04/20 00:00 98.9 80 20 109/60 (76) 98 02/04/20 00:00 Trach Collar 6.0 02/03/20 23:28 79 02/03/20 20:00 Trach Collar 6.0 02/03/20 20:00 6.0 30 02/03/20 20:00 98.4 82 20 93/59 (70) 95 02/03/20 19:06 89 02/03/20 18:55 97 Trach Collar 8.0 30 02/03/20 16:00 98.6 79 20 129/68 (88) 99 02/03/20 16:00 Trach Collar 6.0 02/03/20 16:00 6.0 30 02/03/20 16:00 84 02/03/20 12:25 95 Trach Collar 8.0 30 02/03/20 12:00 Trach Collar 6.0 02/03/20 12:00 6.0 30 02/03/20 12:00 97.7 79 20 128/72 (90) 99 02/03/20 11:43 75 Intake and Output 02/03/20 02/04/20 19:00 07:00 Intake Total 500 ml 320 ml Balance 500 ml 320 ml Intake Oral 500 ml 320 ml # Voids 2 3 # Bowel Movements 1 Height (Feet): 5 Height (Inches): 9.00 Weight (Pounds): 490 General Appearance: alert EENT: normal ENT inspection Neck: supple Cardiovascular: normal rate Respiratory/Chest: decreased breath sounds Abdomen: normal bowel sounds, non tender, soft Extremities: non-tender Mathew Singleton MD Feb 04, 2020 11:34
[2020-02-04 12:00] VITALS: BP 112/75
--- NOTE | 2020-02-04 12:16 | NUR ---
DISCHARGE DISPOSITION: PLEASE READ PATIENT TO BE DISCHARGED TO [facility] [address] [facility] [address] T: [phone]>> CALL FOR REPORT [facility] 1800>>> KAYODE MADE AWARE OF PATIENTS HT, WT, AND RESPIRATORY STATUS PTS MOTHER KRISTOPHER WAS NOTIFIED VIA TELEPHONE OF DC PLAN. TRANSFER PACKET DELIVERED. DC ORDER ACTIVE IN CHART. UPDATED CLINICALS FAXED TO [facility]. [facility] CONFIRMED THAT BARIATRIC BED WOULD BE DELIVERED TODAY @ 1700
--- NOTE | 2020-02-04 12:49 | Infectious Diseases Prog Note ---
Assessment/Plan Assessment/Plan ASSESSMENT: The patient is a 49-year-old male with: Low-grade fever, sp Leukocytosis., sp Aspiration pneumonia, Sp Rx - SC: nl [id number] -01/31 CXR: Suspected mild pulmonary vascular congestion. Correlate clinically History of seizure disorder. COPD. Bipolar disorder. Depression. Atrial fibrillation PLAN: monitor pt off of AB Rx 01/29 Sp Levaquin and Flagyl day # 05/31 Monitor CBC Monitor BMP. Monitor chest x-ray Subjective Allergies: Coded Allergies: MILK (Verified Allergy, Mild, 01/29/20) FISH DERIVED (Verified Allergy, Unknown, 01/23/20) PENICILLINS (Verified Allergy, Unknown, 01/23/20) SULFAMETHOXAZOLE (Verified Allergy, Unknown, 01/23/20) TRIMETHOPRIM (Verified Allergy, Unknown, 01/23/20) Subjective afebrile Objective Vital Signs Last 24 Hour Vital Signs Date Time Temp Pulse Resp B/P (MAP) Pulse Ox O2 Delivery O2 Flow Rate FiO2 02/04/20 12:00 6.0 30 02/04/20 12:00 97.0 88 21 112/75 (87) 98 02/04/20 09:05 120/60 02/04/20 08:30 98.2 02/04/20 08:00 73 02/04/20 08:00 6.0 30 02/04/20 08:00 97.6 78 20 120/60 (80) 97 02/04/20 08:00 Trach Collar 6.0 02/04/20 06:43 95 Trach Collar 8.0 30 02/04/20 04:00 6.0 30 02/04/20 04:00 Trach Collar 6.0 02/04/20 04:00 98.2 76 20 107/58 (74) 97 02/04/20 03:37 70 02/04/20 01:08 97 Trach Collar 8.0 30 02/04/20 00:00 98.9 80 20 109/60 (76) 98 02/04/20 00:00 Trach Collar 6.0 02/03/20 23:28 79 02/03/20 20:00 Trach Collar 6.0 02/03/20 20:00 6.0 30 02/03/20 20:00 98.4 82 20 93/59 (70) 95 02/03/20 19:06 89 02/03/20 18:55 97 Trach Collar 8.0 30 02/03/20 16:00 98.6 79 20 129/68 (88) 99 02/03/20 16:00 Trach Collar 6.0 02/03/20 16:00 6.0 30 02/03/20 16:00 84 Height (Feet): 5 Height (Inches): 9.00 Weight (Pounds): 490 HEENT: anicteric Respiratory/Chest: no respiratory distress Cardiovascular: regular rhythm Abdomen: no organomegaly Current Medications Medications (Trade) Dose Ordered Sig/Phuong Route PRN Reason Start Time Stop Time Status Last Admin Dose Admin Albuterol/ Ipratropium (Albuterol/ Ipratropium) 3 ml Q4H PRN HHN Shortness of Breath 02/03/20 21:30 02/11/20 09:29 Aspirin (ASA) 81 mg DAILY ORAL 01/26/20 09:00 02/23/20 08:59 02/04/20 09:05 Atorvastatin Calcium (Lipitor) 10 mg BEDTIME ORAL 01/25/20 21:00 02/23/20 20:59 02/03/20 20:44 Diphenhydramine HCl (Benadryl) 50 mg Q4H PRN IVP Itching 01/31/20 03:30 03/01/20 03:29 02/04/20 09:15 Enalapril Maleate (Vasotec) 5 mg EVERY 12 HOURS ORAL 01/25/20 21:00 02/23/20 08:59 02/04/20 09:05 Guaifenesin/ Dextromethorphan (Robitussin DM Syrup) 10 ml Q4H PRN ORAL For Cough 01/25/20 16:30 02/23/20 16:29 Heparin Sodium (Porcine) (Heparin 5000 units/ml) 5,000 units EVERY 12 HOURS SUBQ 01/25/20 21:00 02/23/20 20:59 02/04/20 09:04 Hydromorphone HCl (Dilaudid) 1 mg Q6H PRN IVP Severe Pain (Pain Scale 7-10) 01/29/20 14:30 02/05/20 14:29 02/04/20 08:00 Levetiracetam (Keppra) 750 mg Q12HR ORAL 01/29/20 21:00 02/28/20 20:59 02/04/20 09:06 Ondansetron HCl (Zofran) 4 mg Q6H PRN IVP Nausea & Vomiting 01/25/20 17:26 02/23/20 17:25 Pantoprazole (Protonix) 40 mg DAILY ORAL 02/01/20 09:00 03/02/20 08:59 02/04/20 09:03 Polyethylene Glycol (Miralax) 17 gm DAILYPRN PRN ORAL Constipation 02/03/20 07:18 03/04/20 07:17 Sennosides (Senokot) 8.6 mg DAILYPRN PRN ORAL Constipation 02/03/20 07:18 03/04/20 07:17 02/03/20 09:35 Theophylline (Austen-Dur) 100 mg BID ORAL 01/25/20 18:00 02/23/20 17:59 02/04/20 09:03 Trazodone HCl (Desyrel) 50 mg BEDTIME ORAL 01/25/20 21:00 02/23/20 20:59 02/03/20 20:44 Charles Snyder MD Feb 04, 2020 12:49
--- NOTE | 2020-02-04 13:00 | NUR ---
NURSE NOTES: PT REFUSED PICTURE TAKEN. PT VERY UP-SET NON -COMPLIANT WITH INSTRUCTIONS AT THIS TIME .PT STATING " I WANT TO GO BACK TO THE SKILLED NURSING " . JULIAN RN IN CHARGE MADE AWARE AND NOTIFIED REGARDING PT IS VERY UP-SET AND REFUSING TO HAVE TAKE PICTURES, ALSO REFUSE PHYSICAL THERAPY. WILL CONT TO MONITOR.
[2020-02-04 15:55] VITALS: BP 105/59
--- NOTE | 2020-02-04 18:00 | NUR ---
NURSE NOTES: PLACED A TELEPHONE CALL TO KELLEY LUCAS AND REPORT GIVEN TO BLAIRE STORM IN CHARGE A WAITING FOR AMBULANCE [facility] TO MONITOR WORKER THE PT. WILL CONT TO MONITOR.
--- NOTE | 2020-02-04 19:05 | NUR ---
NURSE NOTES: Received report from EMETERIO Mason. The patient is observed resting in the bed and remains alert and oriented x3-4. Pt receiving oxygen via trach collar with an O2 saturation of 96% noted without s/sx of respiratory distress. Pt noted to be SR on tele monitor with a current HR of 94 noted. No s/sx of acute distress noted. Pt is screaming and trying to roll out of bed. Pt is unable to walk and then demanding that nursing staff administer Dilaudid early regardless of orders. Pt attempted to throw object across the room. R wrist 24g IV catheter noted which remains intact. Pt refusing to allow IV to be flushed. Pt provided education on safety, seizure, fall and aspiration precautions. Pt refuses to comply. Pt continues to refuse to allow wound pictures to be taken. Pt refuses VS. Diagnostics reviewed. Pt remains resting in bed; bed remains in lowest position with safety wheels engaged, call light within reach, side rails up x3 and bed alarm activated. Will continue plan of care. Will continue to monitor.
--- NOTE | 2020-02-04 19:15 | NUR ---
HAND-OFF: Report given to .GABO STORM.
[2020-02-04 20:00] VITALS: BP 118/74
[2020-02-04] MEDS: TraZODone 50mg tab ORAL SCH (21:00)
--- NOTE | 2020-02-04 21:55 | NUR ---
INTER-FACILITY TRANSFER: Patient transferred to [facility], per Dr Herrera. Report given to Kanika with [id number]. Patient transferred with valuables and medications. Pt verified and signed belongings form. Pt continues to refuse discharge wound pictures. Pt continues to refuse bed bath. Pt continues to refuse 21:00 medications and remains aggressive and demanding more Dilaudid despite denying pain. VS taken and remain stable: BP 119/78, HR 79, RR 22, O2 Sat 98% Temp 97.8 Bariatric gurney used for transportation.
--- NOTE | 2020-02-04 22:00 | Progress Note ---
DATE: 02/04/2020 CARDIOLOGY PROGRESS NOTE SUBJECTIVE: The patient remains on trach collar. No respiratory distress. Monitored rhythm, sinus with rare atrial ectopics. OBJECTIVE: LUNGS: Bilateral breath sounds. HEART: Regular rhythm and rate. Normal S1, S2. Occasional rhonchi. ABDOMEN: Obese. EXTREMITIES: Dependent edema unchanged. LABORATORY DATA: No new laboratory studies. IMPRESSION: 1. Stable cardiovascular parameters. 2. Remains at high risk for respiratory failure due to chronic respiratory acidosis and severe obesity. 3. Acute and chronic diastolic congestive heart failure, clinically compensated. 4. Hypertensive heart disease with controlled blood pressure. PLAN: 1. Discharge plan is reviewed and noted. 2. Medication regimen is updated. Franky Stern M.D. DR: ADRIANE JOB#: [id number] CC:
--- NOTE | 2020-02-08 10:39 | Discharge Summary ---
Discharge Summary Discharge Summary _ DATE OF ADMISSION: 01/23/2020 DATE OF DISCHARGE: 02/04/2020 DISCHARGED BY: Dr. Herrera REASON FOR ADMISSION: 50 years old male with past medical history of chronic respiratory failure, tracheostomy status, COPD, presented with shortness of breath. Upon evaluation patient was tachycardic and tachypneic. Laboratory work-up revealed leukocytosis , anemia , low platelet count. High sodium and low potassium. Lactic acid 0.6. Elevated AST and ALT. Elevated troponin 0.119 , proBNP 730. EKG revealed sinus tachycardia , no acute ischemic changes. Chest x-ray demonstrated cardiomegaly and vascular congestion without overt pulmonary edema. ABG showed evidence of acute respiratory acidosis with pH 7.27, PCO2 83, PO2 89 and O2 sat 95% on 45% of FiO2. In emergency department patient was connected to ventilator, started on steroids and nebulizing treatment with bronchodilator. Patient received aspirin and Lovenox x1. Patient also received 1 L of fluid. Tachycardia improved. Patient subsequently admitted to stepdown unit for further management. CONSULTANTS: tax manager cpa pulmonary Dr. Lombardo ID specialist Dr. Snyder GI specialist Dr. Singleton [facility] COURSE: Patient admitted . Ventilator support and trach care provided. Ventilator settings titrated based on ABG. Pulmonary toilet with bronchodilator provided. Patient was suction as needed. Antiplatelet therapy with aspirin continued. Echocardiogram demonstrated no evidence of left ventricular hypertrophy. Left ventricular ejection fraction estimated to be grossly normal to the extent visualized. Right ventricular systolic pressure of 24. Per POLST patient was full code. Patient was followed-up with serial troponin. Second troponin was negative. Patient initially was on full anticoagulation. Anti-failure regimen was titrated based on clinical parameters as per tax manager cpa. Patient started on the steroids , which tapered and subsequently discontinued . Trial of theophylline initiated. Antitussive provided as needed. Patient was followed-up with chest x-ray. Patient was able to be weaned off ventilator , and prior to discharge was on 30 % of cool aerosol via trach collar. Venous duplex bilateral lower extremity was negative. DVT prophylaxis provided. Patient received spot dose of diuretic. Antiplatelet therapy with aspirin and statin continued. Volumes and cardiorenal parameters were closely monitored. were closely monitored. Pro BNP from 730 down to 71. Blood pressure was managed with SHIRA inhibitor and further optimized as needed as per tax manager cpa. Blood pressure remained stable. Patient by himself denied chest pain. Patient started on empiric antibiotic for probable aspiration pneumonia as per ID specialist recommendation. Patient completed treatment with antibiotic while in the hospital. Leukocytosis and fevers resolved. Blood and sputum cultures were negative. Speech therapy evaluation for [place] valve trials was done , and patient was able to use it. Aspiration precaution maintained. GI prophylaxis provided. Bowel regimen instituted. No evidence of bleeding . Hemoglobin and hematocrit were closely monitored with goal to keep hemoglobin above 7. Hemoglobin and hematocrit remained stable , and prior to discharge hemoglobin 13.9, hematocrit 42.5. Seizure precaution maintained. Keppra continued. Renal parameters and electrolytes were closely monitored. Electrolytes corrected as needed. Nephrotoxins were avoided. LFTs were trending down. Abdominal ultrasound revealed evidence of fatty liver. Hepatitis panel was positive for hepatitis C antibody. Patient clinically stabilized and was ready for transfer [facility] to [facility] for [facility] of care. FINAL DIAGNOSES: Acute hypercapnic respiratory failure on chronic respiratory failure with tracheostomy status Acute COPD with exacerbation Aspiration pneumonia, s/p treatment Elevated troponin/acute myocardial ischemia Pulmonary edema Acute on chronic diastolic congestive heart failure Hypertensive heart disease Hypernatremia likely due to dehydration -resolved Anemia Transaminitis-improved Obesity Likely obstructive sleep apnea Hypertension Seizure disorder Hepatitis C Paroxysmal atrial fibrillation Bipolar disorder Noncompliance Morbid obesity DISCHARGE MEDICATIONS: See Medication Reconciliation list. DISCHARGE INSTRUCTIONS Patient was discharged to the [facility] facility. Follow up with medical doctor at the facility. Maile Segovia NP Feb 08, 2020 10:39
== END 2020-02-04 23:40 | DRG 207 ==
LOC: EDBD 17:36 → EMR 17:54 → 2W 18:10 → EDBEDREQ 20:39 → ICU 01-24 17:08 → 2W 01-25 19:44
PROC: 5A1955Z Respiratory Ventilation, Greater than 96 Consecutive Hours (ICD-10-PCS; principal; 2020-01-24)
DX: J44.1 Chronic obstructive pulmonary disease with (acute) exacerbation (principal); J96.22 Acute and chronic respiratory failure with hypercapnia; J69.0 Pneumonitis due to inhalation of food and vomit; J18.9 Pneumonia, unspecified organism; I50.33 Acute on chronic diastolic (congestive) heart failure; I21.9 Acute myocardial infarction, unspecified; E87.0 Hyperosmolality and hypernatremia; Z68.45 Body mass index [BMI] 70 or greater, adult; E66.2 Morbid (severe) obesity with alveolar hypoventilation; E44.0 Moderate protein-calorie malnutrition; F11.20 Opioid dependence, uncomplicated; E87.3 Alkalosis; J44.0 Chronic obstructive pulmonary disease with (acute) lower respiratory infection; Y95 Nosocomial condition; I48.0 Paroxysmal atrial fibrillation; Z79.01 Long term (current) use of anticoagulants; R00.0 Tachycardia, unspecified; E86.0 Dehydration; D64.9 Anemia, unspecified; G47.33 Obstructive sleep apnea (adult) (pediatric); I11.0 Hypertensive heart disease with heart failure; G40.909 Epilepsy, unspecified, not intractable, without status epilepticus; F32.9 Major depressive disorder, single episode, unspecified; F31.9 Bipolar disorder, unspecified; E87.6 Hypokalemia; R00.1 Bradycardia, unspecified; E83.39 Other disorders of phosphorus metabolism; Z91.19 Patient's noncompliance with other medical treatment and regimen; Z93.0 Tracheostomy status
CPT/HCPCS: 36415; 36600; 71045; 76700; 80048; 80053; 82150; 82803; 83036; 83540; 83550; 83605; 83690; 83735; 83880; 84100; 84484; 85007; 85025; 86705; 86709; 86803; 87040; 87070; 87081; 87205; 87340; 92610; 93005; 93306; 93970; 94002; 94003; 94664; 96361; 96374; 99291; J2405; J7030; J8499

== ENCOUNTER 2020-05-15 00:12 | Emergency (ER) | payer MEDICARE, MEDICAID ==
[~2020-05-15] VITALS: Ht 170.2 cm; Wt 235.9 kg
[~2020-05-15 00:12] MED LIST: ADDERAL20 MG ORAL; ALBUTEROL2.5 MG/3 M INH; ATORVASTATIN CA20 MG ORAL; COLACE100 MG ORAL; GABAPENTIN300 MG ORAL; KLONOPIN1 MG ORAL; LEVETIRACETAM500 MG ORAL; LITHIUM CARBON300 MG ORAL; TRAZODONE HCL50 MG ORAL
--- NOTE | 2020-05-15 00:15 | Emergency Room Report ---
History of Present Illness General Source: Patient, EMS Present Illness HPI Patient is a 50-year-old male who presents after recent increased altered mental status. 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 He had reportedly become more altered and weak.Prior history of psychiatric disease. Patient had been noted to be tracheostomy dependent but does not currently ventilated. Is normally able to stand with assistance. Allergies: Coded Allergies: MILK (Verified Allergy, Mild, 01/29/20) FISH DERIVED (Verified Allergy, Unknown, 01/23/20) PENICILLINS (Verified Allergy, Unknown, 01/23/20) SULFAMETHOXAZOLE (Verified Allergy, Unknown, 01/23/20) TRIMETHOPRIM (Verified Allergy, Unknown, 01/23/20) Patient History Past Medical History: see triage record Reviewed Nursing Documentation: PMH: Agreed; PSxH: Agreed Nursing Documentation-PMH Hx COPD: Yes Hx Seizures: Yes Review of Systems All Other Systems: limited Physical Exam General Appearance: obese, Chronically Ill Head: normocephalic Neck: limited range of motion Respiratory: normal breath sounds, wheezing Cardiovascular #1: normal inspection, normal peripheral pulses Gastrointestinal: normal inspection, non tender, soft Musculoskeletal: normal inspection Neurologic: mat inspector III-XII nml as tested, oriented x3 Psychiatric: normal inspection Skin: normal color Medical Decision Making Diagnostic Impression: Primary Impression: COPD (chronic obstructive pulmonary disease) Additional Impression: Morbid obesity ER Course Patient presented for generalized weakness and altered mental status. Differential diagnosis include was not limited to pneumonia, coronavirus infection, COPD exacerbation, right heart failure among others. Because of complexity of patient's case laboratory tests and imaging studies were ordered. Patient was noted to have some prior history of psychosis.Patient was noted to have some initial respiratory acidosis he was started on mechanical ventilation and was given steroids as well as breathing treatments. Laboratory testing showed normal white blood count as well as negative coronavirus testing. Patient started on some IV fluids. Patient was discontinued off of the ventilator and was noted to have improvement in mental status after oxygen was reduced. Patient's repeat ABG did show some evidence of increased CO2 and therefore patient's oxygen was reduced and discontinued. Patient tolerated this well. Patient was discussed with Dr. Herrera and patient will be sent back to the facility. Patient was sent back to the facility via ambulance. Patient is to return if worse. Labs Test 05/15/20 00:20 05/15/20 00:35 05/15/20 00:50 White Blood Count 8.5 K/UL (4.8-10.8) Red Blood Count 4.47 M/UL (4.70-6.10) Hemoglobin 13.0 G/DL (14.2-18.0) Hematocrit 42.6 % (42.0-52.0) Mean Corpuscular Volume 95 FL (80-99) Mean Corpuscular Hemoglobin 29.0 PG (27.0-31.0) Mean Corpuscular Hemoglobin Concent 30.5 G/DL (32.0-36.0) Red Cell Distribution Width 12.9 % (11.6-14.8) Platelet Count 247 K/UL (150-450) Mean Platelet Volume 9.4 FL (6.5-10.1) Neutrophils (%) (Auto) 64.2 % (45.0-75.0) Lymphocytes (%) (Auto) 18.1 % (20.0-45.0) Monocytes (%) (Auto) 9.3 % (1.0-10.0) Eosinophils (%) (Auto) 7.6 % (0.0-3.0) Basophils (%) (Auto) 0.8 % (0.0-2.0) Sodium Level 139 MMOL/L (136-145) Potassium Level 3.1 MMOL/L (3.5-5.1) Chloride Level 102 MMOL/L (98-107) Carbon Dioxide Level 33 MMOL/L (21-32) Anion Gap 4 mmol/L (5-15) Blood Urea Nitrogen 6 mg/dL (7-18) Creatinine 1.0 MG/DL (0.55-1.30) Estimat Glomerular Filtration Rate > 60 mL/min (>60) Glucose Level 92 MG/DL (74-106) Lactic Acid Level 1.30 mmol/L (0.4-2.0) Calcium Level 8.9 MG/DL (8.5-10.1) Total Bilirubin 0.5 MG/DL (0.2-1.0) Aspartate Amino Transf (AST/SGOT) 61 U/L (15-37) Alanine Aminotransferase (ALT/SGPT) 82 U/L (12-78) Alkaline Phosphatase 63 U/L (46-116) Total Creatine Kinase 77 U/L (26-308) Creatine Kinase MB 1.7 NG/ML (0.0-3.6) Creatine Kinase MB Relative Index 2.2 Troponin I 0.000 ng/mL (0.000-0.056) Total Protein 8.4 G/DL (6.4-8.2) Albumin 3.1 G/DL (3.4-5.0) Globulin 5.3 g/dL Albumin/Globulin Ratio 0.6 (1.0-2.7) Arterial Blood pH 7.380 (7.350-7.450) Arterial Blood Partial Pressure CO2 54.3 mmHg (35.0-45.0) Arterial Blood Partial Pressure O2 89.8 mmHg (75.0-100.0) Arterial Blood HCO3 31.7 mmol/L (22.0-26.0) Arterial Blood Oxygen Saturation 96.8 % (95-100) Arterial Blood Base Excess 5.3 (-2-2) Alex Test Positive Urine Color Pale yellow Urine Appearance Clear Urine pH 8 (4.5-8.0) Urine Specific [place] 1.010 (1.005-1.035) Urine Protein Negative (NEGATIVE) Urine Glucose (UA) Negative (NEGATIVE) Urine Ketones Negative (NEGATIVE) Urine Blood Negative (NEGATIVE) Urine Nitrite Negative (NEGATIVE) Urine Bilirubin Negative (NEGATIVE) Urine Urobilinogen Normal MG/DL (0.0-1.0) Urine Leukocyte Esterase Negative (NEGATIVE) EKG Diagnostic Results Rate: normal Rhythm: NSR ST Segments: no acute changes Status: improved Disposition: HOME, SELF-CARE Condition: Stable Alberto Danielle MD May 15, 2020 00:15
[2020-05-15] MEDS ORDERED: Albuterol/Ipratropium 3ml neb HHN ONE (00:30)
[2020-05-15 00:42] VITALS: BP 117/67
[2020-05-15 01:10] LABS: BASOPHILS % (AUTO) 0.8 % (0.0-2.0); EOSINOPHILS % (AUTO) 7.6 % (0.0-3.0); HEMATOCRIT 42.6 % (42.0-52.0); LYMPHOCYTES % (AUTO) 18.1 % (20.0-45.0); MEAN CORPUSCULAR VOLUME 95 FL (80-99); MONOCYTES % (AUTO) 9.3 % (1.0-10.0); NEUTROPHILS % (AUTO) 64.2 % (45.0-75.0); PLATELET COUNT 247 K/UL (150-450); RED BLOOD COUNT 4.47 M/UL (4.70-6.10); RED CELL DISTRIBUTION WIDTH 12.9 % (11.6-14.8); WHITE BLOOD COUNT 8.5 K/UL (4.8-10.8)
[2020-05-15 01:11] LABS: APPEARANCE,URINE CLEAR; BILIRUBIN, URINE NEGATIVE (NEGATIVE); COLOR,URINE PALE YELLOW; GLUCOSE, URINE (UA) NEGATIVE (NEGATIVE); KETONES,URINE NEGATIVE (NEGATIVE); LEUKOCYTE ESTERASE ,URINE NEGATIVE (NEGATIVE); NITRITE,URINE NEGATIVE (NEGATIVE); PH,URINE 8 (4.5-8.0); PROTEIN,URINE NEGATIVE (NEGATIVE); UROBILINOGEN,URINE NORMAL MG/DL (0.0-1.0)
[2020-05-15 01:18] LABS: ANION GAP 4 mmol/L (5-15); BLOOD UREA NITROGEN 6 mg/dL (7-18); CALCIUM 8.9 MG/DL (8.5-10.1); CARBON DIOXIDE 33 MMOL/L (21-32); CHLORIDE 102 MMOL/L (98-107); POTASSIUM 3.1 MMOL/L (3.5-5.1); SODIUM 139 MMOL/L (136-145)
[2020-05-15 01:32] LABS: ALANINE AMINOTRANSFERASE 82 U/L (12-78); ALBUMIN 3.1 G/DL (3.4-5.0); ALBUMIN/GLOBULIN RATIO 0.6 (1.0-2.7); ALKALINE PHOSPHATASE 63 U/L (46-116); ASPARTATE AMINO TRANSFERASE 61 U/L (15-37); BILIRUBIN,TOTAL 0.5 MG/DL (0.2-1.0); CKMB 1.7 NG/ML (0.0-3.6); CREATINE KINASE 77 U/L (26-308)
--- NOTE | 2020-05-15 01:41 | Diagnostic Imaging Report ---
EXAM: XR Chest, 1 View CLINICAL HISTORY: COUGH TECHNIQUE: Frontal view of the chest. COMPARISON: 02/01/20 FINDINGS: Tracheostomy tube relatively unchanged in position. Evaluation degraded by patient body habitus and utilization of only portable radiography. No change in cardiac size that is mildly enlarged. Mild pulmonary venous hypertension and pulmonary vascular congestion. No focal consolidation, pneumothorax or pleural fluid collections identified.
[2020-05-15 02:57] VITALS: BP 137/66
[2020-05-15 04:45] VITALS: BP 133/71
[2020-05-15 05:21] VITALS: BP 133/72
== END 2020-05-15 04:45 | disposition home or self-care (01) ==
LOC: EDUNIT# 00:12 → EDBD 00:12 → EMR 00:25 → CANBEDREQ 05:16
DX: J44.9 Chronic obstructive pulmonary disease, unspecified (principal); E66.01 Morbid (severe) obesity due to excess calories; Z88.0 Allergy status to penicillin; Z88.2 Allergy status to sulfonamides; Z91.011 Allergy to milk products; Z91.013 Allergy to seafood; G40.909 Epilepsy, unspecified, not intractable, without status epilepticus
CPT/HCPCS: 36415; 36600; 71045; 80053; 81003; 82550; 82553; 82803; 83605; 84484; 85025; 87040; 87081; 87181; 96361; 96374; 99284; J1100; J7030; U0002; J7620